=== PATIENT | female | born 1960 | race Caucasian/White ===

== ENCOUNTER 2019-07-13 08:19 | Inpatient (IN) | payer OTHER, SELFPAY ==
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
[2019-06-29 10:18] VITALS: BP 152/96; PULSE 84; RESP 16; TEMP 36.3; O2SAT 97; BMI 30.8
--- NOTE | 2019-06-29 10:37 | SDCEKG_ITS ---
Test Reason : Blood Pressure : / mmHG Vent. Rate : 080 BPM Atrial Rate : 080 BPM P-R Int : 178 ms QRS Dur : 086 ms QT Int : 386 ms P-R-T Axes : 062 018 041 degrees QTc Int : 445 ms Normal sinus rhythm Normal ECG Confirmed by PERNELL MI ([id number]), avid editor TANIA SANDOVAL ([id number]) on 07/04/2019 2:12:24 PM Referred By: Yandel Robles Confirmed By:PERNELL MI
[2019-06-29 11:11] LABS: Absolute Lymphocyte Count 1.45 X10^3/uL (0.83-4.51); Absolute Neutrophil Count 4.6 X10^3/uL (2.0-7.7); Basophil# 0.04 X10^3/uL; Basophil% 0.6 % (0-1); Eosinophil# 0.08 X10^3/uL; Eosinophils% 1.2 % (0-5); Hemoglobin 13.4 g/dL (12.0-15.0); Lymphocyte # 1.45 X10^3/ul (4.0); Lymphocyte % 22.2 % (19-41); Mean Corp Hgb Conc 33.5 g/dL (32-36); Mean Corpuscular Hgb 30.2 pg (27.0-32.0); Mean Corpuscular Volume 90.1 fL (81-99); Mean Platelet Vol. 8.9 fl (6.2-12.0); Monocyte# 0.34 X10^3/uL; Monocyte% 5.2 % (0-10); NRBC Flagged by Analyzer 0 % (0-5); Neutrophil % 70.5 % (47-70); Platelet Count 267 K/mm3 (150-450); RBC Distribution Width CV 12.3 % (11.6-14.6); RBC Distribution Width SD 40.3 fl (35.1-43.9); Red Blood Count 4.44 M/mm3 (4.2-5.4); White Blood Count 6.5 K/mm3 (4.4-11.0)
[2019-06-29 11:20] LABS: Anion Gap 3 (5-15); BUN 20 mg/dL (7-18); BUN/Creat Ratio 18.2 RATIO (10-20); Calcium,Total 9.1 mg/dL (8.5-10.1); Chloride 107 mmol/L (98-107); EST Glomerular Filtration Rate 54 mL/min (>60); Est Glom Filt Rate - Afr Amer 65 mL/min (>60); Estimated Creatinine Clearance 50.16 ml/min; Glucose 88 mg/dL (74-106); Potassium 4.3 mmol/L (3.5-5.1); Sodium Level 141 mmol/L (136-145)
[2019-07-07 17:05] LABS: Albumin, Serum 3.8 g/dL (3.2-5.0)
[2019-07-13] VITALS (15 sets, daily range): BP systolic 98–158; BP diastolic 45–95; PULSE 79–106; RESP 16–18; TEMP 36.1–37.3; O2SAT 93–100; BMI 30.8
[2019-07-13] MEDS: Magnesium Sulfate 4gm/100mL 4 GM/100 ML IV.SOLN. IV (08:45)
[2019-07-13] MEDS: Lactated Ringers 1,000 ML 125 ML IV ×3 (08:45→23:27)
[2019-07-13] MEDS: Scopolamine 1mg/72hr Patch 1 PATCH TRANSDERM. (09:06)
[2019-07-13] MEDS: Gabapentin 600 MG Tablet PO (09:08)
[2019-07-13] MEDS: Acetaminophen 500 MG Tablet 1000 MG PO ×3 (09:09→21:48)
[2019-07-13] MEDS: Celecoxib 200 MG Capsule 400 MG PO (09:09)
[2019-07-13 09:45] LABS: Bedside Glucose 86 mg/dL (70-110)
[2019-07-13] MEDS: Cefazolin 2 GM in 0.9% Normal Saline 100 ML IV (10:56)
--- NOTE | 2019-07-13 11:15 | RAD_ITS ---
STUDY: X-RAY - PELVIS AND LEFT HIP REASON FOR EXAM: Female, 59 years old. Left hip replacement. TECHNIQUE: 1 views of the pelvis and hip. COMPARISON: None. FINDINGS: Intraoperative imaging provided for left hip replacement. There is good alignment. RAD/Hip 1 view with Pelvis IMPRESSION: Intraoperative imaging provided for left hip replacement. Electronically Signed: Jac Foy, at 14:37 EDT , Service support ,
[2019-07-13] MEDS: dexAMETHasone 10 MG/ML Vial IV (11:35)
--- NOTE | 2019-07-13 12:06 | PCM.OPRPT ---
Report of Operation Date of Procedure: 07/13/19 Pre-Operative Diagnosis: Left hip primary osteoarthritis Post-Operative Diagnosis: Left hip primary osteoarthritis Surgery/Procedure Performed:: Left hip minimally invasive direct anterior total hip replacement Description of Surgical Findings:: Stable hip with equal leg lengths audiovisual tech: Adriane Jacobo Type of Anesthesia:: General Anesthesiologist: Deepak Cat Special Medications: 2 g Ancef, 1 g TXA at incision, 1 g TXA closure, 10 mg Decadron, joint cocktail (30 mL of 0.5% Ropivicaine, 1000 units of epinephrine, 30 mg of Toradol) Specimen's removed: Bony cuts Estimated Blood Loss (mL): 150 mL Fluids Replaced: 700 mL crystalloid Description of Procedure: Components used: 1. Accolade 2 Zack femoral stem size 5 132? 2. Zack trident 2 acetabular shell size 50 mm 3. Zack X3 polyethylene D 4. Zack Biolox delta 36mm, -5mm femoral head Brief history operative indications: 59 yo f who failed conservative measures for their hip osteoarthritis. X-rays were consistent with osteoarthritis including joint space narrowing, osteophyte formation and subchondral cysts. Total hip replacement was discussed with the patient with risks and benefits including but not limited to blood loss, DVTs, PEs, neurovascular damage, dislocation, general risks of anesthesia including loss of life. Patient demonstrated an understanding medical clearance is obtained the patient was consented for surgery. Procedure: On the date of procedure the patient's L hip was marked in the preoperative area. Patient was then taken back to the operating room where anesthesia assumed control of the C-spine and airway and administered anesthetic. Patient was transferred to the operating table and placed in the supine position. The hips were placed at the break of the bed and a sacral bump was placed. The L lower extremity was then prepped out in a sterile fashion using chlorhexidine while the surgeon scrubbed. The PA was vital in the positioning of the patient. Upon reentering the room the L lower extremity was draped in the standard orthopedic fashion and the incision was marked. A timeout was called and everyone agreed upon the side, the site, the procedure be performed, antibody given, and patient's identity. At this time incision was made through skin, subcutaneous tissue, and fat down to fascia. The fascia was then incised and the TFL was retracted laterally. A retractor was placed on the lateral border of the femoral neck. Attention was directed to the inferior portion of the approach and all crossing vessels were identified and appropriately coagulated. A retractor was then placed on the medial portion of the femoral neck. The anterior capsule was then cleared of all soft tissue and then H shaped capsulotomy was made. The retractors were then placed inside the capsule. The femoral neck was identified and a cleanup cut was made. At this time a power corkscrew was used to remove the femoral head. Attention was then turned toward the acetabulum where the soft tissues were appropriately retracted and the acetabulum was sequentially reamed to 50 mm. A 50 mm cup was then selected and impacted into place. Acetabular liner was impacted into place and locking mechanism was verified. The position of the acetabular cup was then verified under live fluoroscopy. Attention was then turned to the femur. Soft tissue releases on the medial and lateral femoral neck were appropriately done, the leg was externally rotated and lateralized. A Marion retractor was placed medially and proximally to the greater trochanter this allowed appropriate visualization and exposure of the femoral canal. Rongeour was then used to remove excess lateral bone. A canal finder and entry broach were used to open the proximal canal. Once we verified we were down the femoral canal we subsequently broached up to a size 5 femur. The appropriate neck was placed in the previously selected head was trialed with a -5 mm neck. Traction was pulled and the hip was reduced with internal rotation. Once it was appropriately reduced and stability was checked. There was minimal shuck, equal leg lengths and appropriate stability with hyperextension and external rotation as well as with 90? flexion and internal rotation. Fluoroscopy was then also used to verify the position of the components and leg lengths using the contralateral side for comparison. The trial components were then dislocated the proximal femur was again exposed and the components were removed from the wound. The final components were verified and opened. The wound was copiously irrigated out with normal saline. The acetabulum was checked for any residual debris. The final components were placed and impacted. Traction and internal rotation were again used to reduce the hip. After adequate reduction the hip remained stable with appropriate leg lengths. The final components were once again checked with live fluoroscopy and were found to be satisfactory. The wound was then copiously irrigated with normal saline once more, and hemostasis was obtained. Closure was then done using #1 Vicryl runner to close the fascia. A 2-0 vicryl interuppted sutures were used to close the subcutaneous skin. A 3-0 Monocryl and Steri-Strips were used for final skin closure. A Silverlon dressing was placed. Patient was awakened by anesthesia and transferred to [facility]. Patient was then transferred to the PACU for recovery. Postoperative plan: Patient will get 24 hours postop antibiotics. Patient will get in-house physical therapy and will be weight-bear as tolerated. Patient will follow up in office in 2 weeks for a wound check and x-rays. - Complications No intraoperative complications - Admit VTE Documentation VTE Present on Admission: No VTE Mechan Device Prophylaxis: SCD's, Thigh High AUGUSTINE Hose VTE Pharm Prophylaxis ordered?: Yes
--- NOTE | 2019-07-13 13:11 | RAD_ITS ---
STUDY: X-RAY - PELVIS AND LEFT HIP REASON FOR EXAM: Female, 59 years old. Total hip replacement. TECHNIQUE: 2 views of the pelvis and hip. COMPARISON: Comparison is made with prior study done earlier today. FINDINGS: The patient is status post total hip replacement. There is good alignment. Postoperative soft tissue changes. RAD/Hip Min 2 Views (Portable) IMPRESSION: Status post total hip replacement. There is good alignment. Postoperative soft tissue swelling. Electronically Signed: Jac Foy, at 14:36 EDT , Service support ,
[2019-07-13] MEDS: Lactated Ringers 1,000 ML 50 ML IV (13:49)
[2019-07-13] MEDS: Ketorolac 15 MG/ML Vial IV ×2 (15:33→21:48)
[2019-07-13] MEDS: Famotidine 20 MG Tablet PO (16:58)
[2019-07-13] MEDS: Aspirin 81 MG TAB.CHEW PO (16:58)
[2019-07-13] MEDS: DULoxetine Hcl 60 MG Capsule PO (16:58)
[2019-07-13] MEDS: Ensure Surgery 237 ML LIQUID PO (17:03)
[2019-07-13] MEDS: Cefazolin 1 GM/50 ML BAG IV (19:01)
[2019-07-13] MEDS: oxyCODONE 5 MG Tablet 2.5 MG PO (20:42)
[2019-07-13] MEDS: Senna/Docusate Sodium 1 Tablet 2 TABLET PO (21:54)
[2019-07-14 00:01] VITALS: BP 115/53; PULSE 99; RESP 16; TEMP 37.1; O2SAT 94
[2019-07-14] MEDS: Cefazolin 1 GM/50 ML BAG IV (02:35)
[2019-07-14 02:40] VITALS: BP 123/55; PULSE 101; RESP 18; TEMP 36.9; O2SAT 94
[2019-07-14] MEDS: Acetaminophen 500 MG Tablet 1000 MG PO ×2 (06:07→14:27)
[2019-07-14] MEDS: Meloxicam 7.5 MG Tablet PO (06:08)
[2019-07-14] MEDS: Ketorolac 15 MG/ML Vial IV (06:08)
[2019-07-14 07:00] LABS: Hematocrit 28.3 % (37-47); Hemoglobin 9.4 g/dL (12.0-15.0); Mean Corp Hgb Conc 33.2 g/dL (32-36); Mean Corpuscular Volume 90.4 fL (81-99); Mean Platelet Vol. 9.3 fl (6.2-12.0); Platelet Count 237 K/mm3 (150-450); RBC Distribution Width CV 12.6 % (11.6-14.6); RBC Distribution Width SD 41.1 fl (35.1-43.9); Red Blood Count 3.13 M/mm3 (4.2-5.4); White Blood Count 14.7 K/mm3 (4.4-11.0)
[2019-07-14 07:18] LABS: Anion Gap 2 (5-15); BUN 20 mg/dL (7-18); Calcium,Total 7.9 mg/dL (8.5-10.1); Chloride 110 mmol/L (98-107); EST Glomerular Filtration Rate 60 mL/min (>60); Est Glom Filt Rate - Afr Amer 73 mL/min (>60); Estimated Creatinine Clearance 54.51 ml/min; Glucose 112 mg/dL (74-106); Sodium Level 141 mmol/L (136-145)
[2019-07-14] MEDS: Aspirin 81 MG TAB.CHEW PO (08:38)
[2019-07-14] MEDS: Famotidine 20 MG Tablet PO (08:39)
[2019-07-14] MEDS: Lisinopril 10 MG Tablet PO (08:39)
[2019-07-14] MEDS: DULoxetine Hcl 60 MG Capsule PO (08:40)
[2019-07-14] MEDS: oxyCODONE 5 MG Tablet 2.5 MG PO ×2 (08:48→14:26)
[2019-07-14] MEDS: Ensure Surgery 237 ML LIQUID PO (08:49)
[2019-07-14 08:50] VITALS: BP 133/82; PULSE 85; RESP 18; TEMP 36.9; O2SAT 98
--- NOTE | 2019-07-14 11:08 | PCM.PN.ORT ---
Subjective: The patient was sitting in bedside chair upon examination. Patient denies any chest pain, shortness of breath, dizziness, lightheadedness, nausea or vomiting, or calf pain. Pain is controlled on medications. No adverse overnight events. Patient has tolerated physical therapy very well. Her pain is controlled. Plan is for discharge home today. Objective: Vital signs stable and afebrile. Patient is able to plantarflex and dorsiflex actively. Sensation is intact to light touch to saphenous, sural, superficial and deep peroneal, and tibial distribution. Dressing is clean dry and intact. Negative Homans bilaterally, negative signs and symptoms of DVT. - Physical Exam General: Alert, Oriented x3, Cooperative, No apparent distress Vital Signs Temp Pulse Resp BP Pulse Ox 98.4 F 85 18 133/82 H 98 07/14/19 08:50 07/14/19 08:50 07/14/19 08:50 07/14/19 08:50 07/14/19 08:50 Oxygen Flow Rate (L/min) 2 Oxygen Delivery Method Room Air Weight: 84 kg Body Mass Index (BMI) 30.8 Intake and Output for Last 24 Hours 07/12/19 07/13/19 07/14/19 23:59 23:59 23:59 Intake Total 3495.84 / 3495.84 1371.25 / 1371.25 Output Total 1000 / 1000 350 / 350 Balance 2495.84 / 2495.84 1021.25 / 1021.25 Laboratory Tests Past 24 Hrs 07/14/19 07/14/19 06:24 06:24 WBC 14.7 H RBC 3.13 L Hgb 9.4 L Hct 28.3 L MCV 90.4 MCH 30.0 MCHC 33.2 RDW Std Deviation 41.1 RDW Coeff of Nola 12.6 Plt Count 237 MPV 9.3 Sodium 141 Potassium 4.0 Chloride 110 H Carbon Dioxide 29.0 Anion Gap 2 L BUN 20 H Creatinine 1.00 Estim Creat Clear Calc 54.51 Est GFR (MDRD) Af Amer 73 Est GFR (MDRD) Non-Af 60 BUN/Creatinine Ratio 20.0 Glucose 112 H Calcium 7.9 L Medical Necessity - Tobacco Use Smoking Status: Never smoker Tobacco Use: Non-smoker Assessment/Plan 1. S/P left total hip arthroplasty direct approach POD #1 2. Continue Pain Medications: Tylenol and OxyIR 3. DVT Prophylaxis: Aspirin 81 mg twice daily with food for 4 weeks postoperatively 4. PT/OT: Weightbearing as tolerated 5. H & H: 9.4/28.3, asymptomatic 6. Reactive leukocytosis: Currently 14.7, afebrile. Patient did receive Decadron intraoperatively 7. Encouraged Incentive Spirometry 8. Disposition: Orthopedically stable, plan will be for discharge home today. Prescriptions will be E scribed to [facility]. Patient will follow-up per postop instructions. Patient has outpatient physical therapy established.
--- NOTE | 2019-07-14 11:13 | PCM.DC.THR ---
Discharge Diet: No Restrictions Discharge Activity: May Not Drive - while taking narcotic pain medications. May shower in (days): 1 - Turn dressing away from water Ice area for (Minutes): 20 - Every 1-2 hours while awake Weight Bearing Status: Weight bearing as tolerated Elevate: Operative Extremity Additional Activity Instructions:: Wear elastic stockings for 2 weeks. DO NOT use alcohol with narcotic pain medication. DO NOT make important decisions while taking narcotic medication. If you have problems with taking your medication (rash, itching, nausea, etc.) call the office at once. Call your doctor if your incision/area has: Increased Pain/ Swelling, Increased Redness, Foul Smelling Discharge Call your doctor if you observe: Fever of 101 or Higher Remove Dressing in (days):: 4 - Okay to remove dressing on July 18, 2019 Additional Instructions: Follow with [facility] postop instructions Allergies/Adverse Reactions: Allergies morphine Allergy (Verified 06/29/19 10:08) Chest tightness Medications to take at Discharge Duloxetine HCl [Cymbalta] 60 mg PO DAILY 04/12/15 Lisinopril [Zestril] 10 mg PO DAILY 06/29/19 Acetaminophen [Tylenol] 1,000 mg PO Q8 #100 tab 07/14/19 Aspirin [Aspirin, Baby] 81 mg PO BIDCM #60 tab.chew 07/14/19 Famotidine [Pepcid] 20 mg PO DAILY #30 tab 07/14/19 Meloxicam [Mobic] 7.5 mg PO BID #60 tab 07/14/19 Oxycodone [Oxyir] 5 mg PO Q4H PRN PRN 5 Days #30 tablet 07/14/19 Senna/Docusate Sodium [Senokot-S] 2 tab PO BID #20 tab 07/14/19 The following prescriptions were given: Aspirin [Aspirin, Baby] 81 mg PO BIDCM #60 tab.chew Transmission Status: Pending to [facility] Meloxicam [Mobic] 7.5 mg PO BID #60 tab Transmission Status: Pending to [facility] Oxycodone [Oxyir] 5 mg PO Q4H PRN PRN 5 Days #30 tablet PRN Reason: Mod-Severe Pain (-08/04) Transmission Status: Sent to [facility] Famotidine [Pepcid] 20 mg PO DAILY #30 tab Transmission Status: Pending to [facility] Senna/Docusate Sodium [Senokot-S] 2 tab PO BID #20 tab Transmission Status: Pending to [facility] Acetaminophen [Tylenol] 1,000 mg PO Q8 #100 tab Transmission Status: Pending to [facility] Primary Care Physician: David Baldwin MD [Primary Care Provider] - Test Results: Test results from this visit will be discussed in further detail at your follow-up appointment, if applicable. Please Follow Up With: [facility] When: 07/18/19 @ 10:00 am with Bimal Please Follow Up With: Dagoberto Chiu PA-C When: 07/27/19 @ 9:00 am
--- NOTE | 2019-07-14 12:00 | CASEMGMT ---
RN DANELLE Face to Face with patient for initial transition planning/care coordination assessment. RN CM introduced self and role at [facility]. Patient sitting in chair, alert and oriented, mother at bedside. Patient willing to participate in assessment and is able to answer all questions appropriately. Care providers, pharmacy, and demographics verified. Patient wishes to discharge to mother's home with outpatient therapy setup at [facility]. Patient states she has no further needs or concerns at this time. CM to follow for discharge planning needs that may arise. PCP: Denny Specialists: [facility] Pharmacy: [facility] Insurance: MMO Prescription Benefit: yes Living Will/HPOA: None LNOK: , mother Living Arrangements: Patient lives with in [facility] with on steps. Patient will be staying with mother for a few days who lives in 1 story home with 2 steps to enter the home. Transportation: Mother DME/HHC: Patient has walker. Patient has outpatient therapy at [facility] for Thursday. Disposition Plan: Rosemary GRAHAM, RN, CM
[2019-07-14 14:25] VITALS: BP 133/69; PULSE 90; RESP 16; TEMP 36.8; O2SAT 95
== END 2019-07-14 14:40 | disposition home or self-care (01) | DRG 470 ==
LOC: ACINP 08:22 → MS3 07-14 07:41
PROVIDERS: Admitting Provider Specialist; Family Provider Family Medicine; PCP Family Medicine; Referring Provider Specialist; Visit Provider Specialist
PROC: 0SRB02Z Replacement of Left Hip Joint with Metal on Polyethylene Synthetic Substitute, Open Approach (ICD-10-PCS; CPT 27284; principal; 2019-07-13 10:50)
DX: M16.12 Unilateral primary osteoarthritis, left hip (principal); Z87.442 Personal history of urinary calculi; I10 Essential (primary) hypertension; G35 Multiple sclerosis; F32.9 Major depressive disorder, single episode, unspecified; Z79.899 Other long term (current) drug therapy; K21.9 Gastro-esophageal reflux disease without esophagitis; D72.828 Other elevated white blood cell count
CPT/HCPCS: 36415; 73501; 73502; 76000; 80048; 82040; 82962; 85025; 85027; 87081; 93005; 97162; 97166; 97530; 99251; C1776; J7120; G0463; J2405

== ENCOUNTER → 2019-08-08 | Outpatient (CLI) | payer OTHER, SELFPAY ==
[2019-07-13 15:23] VITALS: BMI 30.8
--- NOTE | 2019-08-08 11:21 | LES_PTH ---
PATIENT: ESTHER AGGARWAL [id number] AGE/SX: 59/F ROOM: RE08/08/[address]: Dr. David Shah MD : 1960 BED: DIS: 08/08/2019 SPEC #: [id number] RECD: 08/08/19 13:54 STATUS: ROMAN RERandy #: [id number] TANNER: 08/08/19 11:[address]: David Shah DEPT: SURGICAL PATHOLOGY RECD BY: Huey Anthony ENTERED: 08/08/19 15:10 SP TYPE: Lesion OTHR DR: Dr. David Baldwin MD Tissues: Skin of leg, NOS Procedures: Surgery Specimen Level IV HEADER OPERATION: Left thigh skin excision PRE-OP DIAGNOSIS: Suspicious skin lesion TISSUE SUBMITTED: Left thigh lesion MICROSCOPIC DIAGNOSIS Left thigh lesion, excisional biopsy: Benign verrucous keratosis. SJ:ace 08/09/19 MICROSCOPIC DESCRIPTION Slides are reviewed. GROSS DESCRIPTION Received in fixative is one container labeled with the patient's name and designated left thigh skin lesion. The specimen consists of a round piece of engle-white skin measuring 0.4 cm in diameter and 0.1 cm in thickness. The entire specimen is submitted in one cassette. It will be bisected at the time of embedding. / SJ:rg 08/08/19 TC:5 [facility]: [id number]
== END | disposition home or self-care (01) ==
LOC: LABSPEC 14:05
PROVIDERS: Family Provider Family Medicine; PCP Family Medicine; Referring Provider Family Medicine; Visit Provider Family Medicine
DX: L98.9 Disorder of the skin and subcutaneous tissue, unspecified (principal)
CPT/HCPCS: 88305

== ENCOUNTER → 2019-08-18 | Outpatient (CLI) | payer OTHER, SELFPAY ==
[2019-07-13 15:23] VITALS: BMI 30.8
--- NOTE | 2019-08-18 09:57 | BI_ITS ---
MAMMOGRAPHY - BILATERAL SCREENING REASON FOR EXAM: Female, 59 years old. Routine annual screening examination. PERTINENT HISTORY: Non-contributory. History of bilateral breast reduction surgery. TECHNIQUE: Digital bilateral breast garry (3D mammographic acquisition) in the CC and MLO projections. 2-D mediolateral oblique (MLO) and craniocaudad (CC) views of both breasts were obtained. CAD: Full Field Digital Mammography with Computer Added Detection was performed. COMPARISON: Comparison is made with prior examination dated January 13, 2017 and April 12, 2013. FINDINGS: Breast Composition: There are scattered areas of fibroglandular density. There are no dominant masses or suspicious calcifications. No other significant abnormalities are identified. There has been no significant change since the prior study. BI/SCREEN MAMM (CAD) W/GARRY BILAT IMPRESSION: Stable bilateral screening mammogram. Yearly follow-up mammogram recommended. (A) ASSESSMENT CATEGORY: BIRADS Category 1: Negative. A letter regarding these results will be sent to the patient by the facility within 30 days. Approximately 10% of breast cancers are not detected by mammography. A normal mammogram should not delay biopsy of a clinically suspicious abnormality. [id number] Electronically Signed: Jca Foy, at 11:25 EDT , Service support ,
== END | disposition home or self-care (01) ==
LOC: OPBI 09:56
PROVIDERS: Family Provider Family Medicine; PCP Family Medicine; Referring Provider Family Medicine; Visit Provider Family Medicine
DX: Z12.31 Encounter for screening mammogram for malignant neoplasm of breast (principal)
CPT/HCPCS: 77063; 77067

== ENCOUNTER → 2019-11-14 11:29 | Outpatient (CLI) | payer OTHER, SELFPAY ==
[2019-07-13 15:23] VITALS: BMI 30.8
[2019-11-14 16:02] LABS: Anion Gap 5 (5-15); BUN 21 mg/dL (7-18); BUN/Creat Ratio 18.1 RATIO (10-20); Calcium,Total 9.4 mg/dL (8.5-10.1); Chloride 106 mmol/L (98-107); Cholesterol 179 mg/dL (200); Creatinine, Serum 1.16 mg/dL (0.55-1.02); EST Glomerular Filtration Rate 51 mL/min (>60); Est Glom Filt Rate - Afr Amer 61 mL/min (>60); Glucose 80 mg/dL (74-106); High Density Lipoprotein 53 mg/dL; Potassium 3.9 mmol/L (3.5-5.1); Sodium Level 140 mmol/L (136-145); Triglycerides 244 mg/dL; Very Low Density Lipoprotein 49 mg/dL (5-40)
[2019-11-16 20:21] LABS: HPV HC, High Risk Negative (Negative)
== END ==
PROVIDERS: PCP Family Medicine; Referring Provider Family Medicine; Visit Provider Family Medicine
DX: Z13.1 Encounter for screening for diabetes mellitus (principal); Z13.220 Encounter for screening for lipoid disorders; Z01.419 Encounter for gynecological examination (general) (routine) without abnormal findings
CPT/HCPCS: 36415; 80048; 80061; 87624; 88175; G0145

== ENCOUNTER → 2020-05-31 11:17 | Outpatient (CLI) | payer OTHER, SELFPAY ==
[2019-07-13 15:23] VITALS: BMI 30.8
[2020-05-31 15:47] LABS: ALB/GLOB Ratio 1.1 RATIO (0.9-2.4); AST(SGOT) 15 U/L (15-37); Alanine Aminotransfer ALT/SGPT 25 U/L (13-56); Albumin, Serum 3.9 g/dL (3.2-5.0); Alkaline Phosphatase 105 U/L (45-117); Anion Gap 5 (5-15); BUN 18 mg/dL (7-18); BUN/Creat Ratio 17.3 RATIO (10-20); Calcium,Total 8.8 mg/dL (8.5-10.1); Chloride 108 mmol/L (98-107); Creatinine, Serum 1.04 mg/dL (0.55-1.02); EST Glomerular Filtration Rate 58 mL/min (>60); Est Glom Filt Rate - Afr Amer 70 mL/min (>60); Globulin 3.4 g/dL (2.2-4.2); Glucose 81 mg/dL (74-106); Potassium 3.9 mmol/L (3.5-5.1); Protein, Total 7.3 g/dL (6.4-8.2); Sodium Level 142 mmol/L (136-145)
[2020-05-31 15:49] LABS: Vitamin D,25 Hydroxy 25.7 ng/mL
[2020-05-31 15:59] LABS: Microalbumin,Random Urine 85.4 mg/L (NO RANGE EST.); Microalbumin:Creatinine Ratio 53.7 mg/g CRE (<30 mg/g CRE)
[2020-06-01 10:12] LABS: PTHIN 92.1 pg/mL (18.4-80.1)
== END ==
PROVIDERS: PCP Family Medicine; Referring Provider Family Medicine; Visit Provider Family Medicine
DX: N18.3 Chronic kidney disease, stage 3 (moderate) (principal)
CPT/HCPCS: 36415; 80053; 82043; 82306; 82570; 83970

== ENCOUNTER → 2020-08-15 | Outpatient (CLI) | payer OTHER, SELFPAY ==
[2019-07-13 15:23] VITALS: BMI 30.8
[2020-08-15 18:44] LABS: CRP 4.57 mg/L (0.0-3.0)
[2020-08-15 18:45] LABS: Hematocrit 41.2 % (37-47); Hemoglobin 13.5 g/dL (12.0-15.0); Mean Corp Hgb Conc 32.8 g/dL (32-36); Mean Corpuscular Hgb 29.3 pg (27.0-32.0); Mean Corpuscular Volume 89.6 fL (81-99); Mean Platelet Vol. 8.9 fl (6.2-12.0); Platelet Count 341 K/mm3 (150-450); RBC Distribution Width CV 12.6 % (11.6-14.6)
[2020-08-15 19:07] LABS: Erythrocyte Sedimentation Rate 5 mm/hr (0-30)
== END | disposition home or self-care (01) ==
LOC: MTLAB 15:58
PROVIDERS: PCP Family Medicine; Referring Provider Ophthalmology; Visit Provider Ophthalmology
DX: M31.6 Other giant cell arteritis (principal); R51.9 Headache, unspecified
CPT/HCPCS: 36415; 85027; 85652; 86140

== ENCOUNTER → 2021-07-12 | Outpatient (CLI) | payer OTHER, SELFPAY ==
--- NOTE | 2021-07-12 10:30 | TISS_PTH ---
PATIENT: ESTHER AGGARWAL [facility]#:[id number] AGE/SX: 61/F ROOM: RE07/12/[address]: Dr. David Shah MD : 1960 BED: DIS: 07/12/2021 SPEC #: [id number] RECD: 07/12/21 12:00 STATUS: ROMAN ERNSTRandy #: [id number] TANNER: 07/12/21 10:[address]: David Shah DEPT: SURGICAL PATHOLOGY RECD BY: Huey Anthony Tissues: Skin of upper extremity and shoulder Procedures: Surgery Specimen Level IV HEADER OPERATION: Shave biopsy PRE-OP DIAGNOSIS: Right shoulder blade TISSUE SUBMITTED: Right shoulder blade MICROSCOPIC DIAGNOSIS Skin lesion of right shoulder, shave biopsy: Seborrheic keratosis. AM:ace 07/15/2021 MICROSCOPIC DESCRIPTION Slides are reviewed. GROSS DESCRIPTION Received is one container labeled with the patient's name and not further designated. The specimen consists of a shave biopsy of brown skin measuring 1 x 0.5 x 0.1 cm. The specimen is inked, serially sectioned and submitted entirely in one cassette. / SJ:rg 07/12/21 TC:5 CPT: 91915
== END | disposition home or self-care (01) ==
LOC: LABSPEC 07-13 17:26
PROVIDERS: PCP Family Medicine; Visit Provider Family Medicine
DX: L82.1 Other seborrheic keratosis (principal)
CPT/HCPCS: 88305

== ENCOUNTER → 2021-10-09 10:09 | Outpatient (CLI) | payer OTHER, SELFPAY ==
[2021-10-09 11:04] LABS: Absolute Lymphocyte Count 1.58 X10^3/uL (0.83-4.51); Absolute Neutrophil Count 5.1 X10^3/uL (2.0-7.7); Basophil# 0.04 X10^3/uL; Basophil% 0.6 % (0-1); Eosinophil# 0.19 X10^3/uL; Eosinophils% 2.6 % (0-5); Hematocrit 41.6 % (37-47); Hemoglobin 13.5 g/dL (12.0-15.0); Lymphocyte # 1.58 X10^3/ul (0.83-4.51); Mean Corp Hgb Conc 32.5 g/dL (32-36); Mean Corpuscular Hgb 28.7 pg (27.0-32.0); Mean Corpuscular Volume 88.5 fL (81-99); Mean Platelet Vol. 9.1 fl (6.2-12.0); Monocyte% 4.2 % (0-10); NRBC Flagged by Analyzer 0 % (0-5); Neutrophil # 5.06 X10^3/uL (2.7-7.7); Neutrophil % 70.3 % (47-70); Platelet Count 360 K/mm3 (150-450); RBC Distribution Width CV 12.9 % (11.6-14.6); RBC Distribution Width SD 42.1 fl (35.1-43.9); White Blood Count 7.2 K/mm3 (4.4-11.0)
[2021-10-09 11:31] LABS: AST(SGOT) 14 U/L (15-37); Alanine Aminotransfer ALT/SGPT 26 U/L (13-56); Albumin, Serum 3.9 g/dL (3.2-5.0); Alkaline Phosphatase 114 U/L (45-117); Bilirubin, Direct 0.08 mg/dL (0.00-0.30); Globulin 3.8 g/dL (2.2-4.2); Protein, Total 7.7 g/dL (6.4-8.2)
[2021-10-09 12:33] LABS: Hepatitis B Surface Antigen Non-Reactive (Nonreactive); Hepatitis C Antibody Non-Reactive (Nonreactive)
[2021-10-10 08:10] LABS: Immunoglobulin A 171 mg/dL (87-352); Immunoglobulin G 1039 mg/dL (586-1602); Immunoglobulin M 63 mg/dL (26-217)
[2021-10-10 09:41] LABS: Hepatitis B Core Ab Total Negative (Negative)
== END ==
DX: G35 Multiple sclerosis (principal)
CPT/HCPCS: 36415; 80076; 82784; 85025; 86704; 86803; 87340

== ENCOUNTER 2021-10-22 18:18 | Emergency (ER) | payer OTHER, SELFPAY ==
[2021-10-22 18:19] VITALS: BP 166/88; PULSE 114; RESP 18; TEMP 36.4; O2SAT 100; BMI 27.6
--- NOTE | 2021-10-22 18:24 | RAD_ITS ---
STUDY: X-RAY - UNILATERAL RIBS ( LEFT ) WITH CHEST REASON FOR EXAM: Female, 61 years old. fall TECHNIQUE - RIBS: 4 view(s) of the ribs. TECHNIQUE - CHEST: Single PA view of the chest. COMPARISON: None. FINDINGS - RIBS: Normal visualized ribs without a demonstrated fracture. FINDINGS - CHEST: There is hyperinflation of the lungs consistent with chronic obstructive lung disease (COPD). No visualized consolidation. There is no demonstrated pleural abnormality. Normal size heart. Normal mediastinum and holden. Normal visualized pulmonary arteries. There is atherosclerotic calcification of the aortic arch with tortuosity. Normal visualized thoracic spine. Normal visualized ribs, clavicles, and shoulders. There is no demonstrated abnormality of the visualized soft tissue structures of the upper abdomen. RAD/Ribs Uni Min 3V w/PA Chest IMPRESSION: RIBS: Normal x-ray examination of the ribs. CHEST: COPD. Degenerative changes, as described above. No demonstrated acute cardiopulmonary process. Electronically Signed: Kervin Ramon MD at 19:45 EST , Service support ,
--- NOTE | 2021-10-22 20:42 | CM.ED ---
SW Note Referral Source: Case Find Referral Reason: No Primary Care Physician (PCP) SW reviewed chart and noted that patient has no PCP. SW provided patient with list of [facility] and [facility] Physician List for reference. No other issues or concerns voiced at this time. Patient said that her previous PCP had retired. SW remains available for any additional needs. Plan: Provided patient with PCP information Maribell MCCORMACK
--- NOTE | 2021-10-22 21:08 | EDS_ITS ---
HPI HPI - Fall History of Present Illness Chief Complaint: Fall Informant: patient Occured/Mechanism Occurred: Days (6) Mechanism/Context: Yes trip Fall down steps #: 13 Usually ambulates: Without assistance Pain/Injury Location: Left chest and left shoulder Pain Location: chest (Left) and upper extremity (Left shoulder) Worsened by: Coughing, movement Relieved by: Nothing Associated Symptoms Associated Symptoms: Negative for Parasthesias, Weakness, Inability to ambulate and Loss of consciousness Narrative Narrative: Patient is here after a fall that occurred 16 days ago. Patient states she fell down her basement steps. Patient states this was approximately 13-14 steps. Patient denies any head injury or loss of consciousness. Patient states her pain is on her left side. Patient describes her pain as sharp. Patient denies any paresthesias or weakness. Patient has been able to ambulate since the fall. Patient admits to some pain in her chest whenever she coughs. Patient states she feels short of breath due to the pain in the left side of her chest. PFSH PFS Medical History (Updated 10/22/21 @ 21:[address] Amauri Naranjo DO) Depression Hypertension Home Medications duloxetine [Cymbalta] 60 mg PO DAILY 04/12/15 [History Last Taken Unknown] lisinopril 10 mg PO DAILY 06/29/19 [History Last Taken Unknown] acetaminophen 1,000 mg PO Q8 #100 tab 07/14/19 [Rx Last Taken Unknown] aspirin 81 mg PO BIDCM #60 tab.chew 07/14/19 [Rx Last Taken Unknown] famotidine 20 mg PO DAILY #30 tab 07/14/19 [Rx Last Taken Unknown] meloxicam 7.5 mg PO BID #60 tab 07/14/19 [Rx Last Taken Unknown] sennosides-docusate sodium 2 tab PO BID #20 tab 07/14/19 [Rx Last Taken Unknown] Allergy/AdvReac Type Severity Reaction Status Date / Time morphine Allergy Chest Verified 06/29/19 10:08 tightness Surgical History (Updated 10/22/21 @ 21:[address] Amauri Naranjo DO) History of total replacement of both hip joints Hx of appendectomy Hx of bilateral breast reduction surgery Hx of cholecystectomy Social History Smoking Status: Never smoker ROS ROS ED Constitutional Constitutional ED: Denies chills or fever(s) Eyes Eyes: Denies blurry vision or change in vision ENT ENT ED: Reports rhinorrhea; Denies sore throat Cardiovascular Cardiovascular: Reports chest pain; Denies palpitations Respiratory/Chest Respiratory/Chest: Reports cough and dyspnea Gastrointestinal Gastrointestinal: Denies nausea or vomiting Genitourinary Genitourinary ED: Denies dysuria or hematuria Musculoskeletal Musculoskeletal: Denies back pain or neck pain Integumentary Denies abscess or rash Neurologic Neurologic: Denies headache(s) or weakness Allergic/Immunologic Allergic/Immunologic ED: Denies mouth swelling or urticaria EXAM Physical Exam Const Vital Signs: 10/22/21 18:19 10/22/21 18:48 Temperature 97.6 F L Temperature Source Temporal Pulse Rate 114 H Respiratory Rate 18 Respiratory Effort Normal Respiratory Depth Normal Respiratory Pattern Normal Blood Pressure 166/88 H Blood Pressure Mean 114 Pulse Ox 100 Oxygen Delivery Method Room Air Positive well nourished and well developed General Appearance ED: well developed HEENT Reports normocephalic atraumatic Neck full ROM and supple Chest Wall Chest Narrative: There is tenderness along the lateral aspect of the left lower chest. There is no edema or ecchymosis. There is no bony crepitance or step- off. Resp normal respiratory effort and clear to auscultation bilaterally Cardio regular rate and regular rhythm GI non-tender Palpation: soft Back/Spine no CVA tenderness Extremity Extremity Narrative: There is some mild ecchymosis over the lateral aspect of the left shoulder. There is no deformity. There is full range of motion. Strength is 5/5 bilaterally upper and lower extremities. There are no sensory deficits noted. Neuro oriented x3, CN's II-XII intact bilaterally, moves all extremities, no focal motor deficits and no sensory deficits noted Sensorium / Orientation: alert Psych mental status grossly normal MDM MDM MDM Narrative Medical decision making narrative: X-rays of the left ribs were obtained. There are 5 views. On my interpretation, there is no acute fracture. There is no pneumothorax. There is no acute cardiopulmonary process noted. There is no cardiomegaly. Radiologist also interpreted the x-rays and agrees. Patient was advised of her findings. Patient was instructed use ice to the area. Patient was instructed to take Tylenol or ibuprofen as needed for any pain. Patient was instructed to return if worse in any way. Patient was instructed to follow-up with her primary care physician in 5 to 7 days. Patient understood and was agreeable with the plan. All questions were answered. Radiography Diagnostic Testing: Clinical Impression(s) from Imaging Studies Ribs w/Chest X-Ray 10/22/21 18:24 IMPRESSION: RIBS: Normal x-ray examination of the ribs. CHEST: COPD. Degenerative changes, as described above. No demonstrated acute cardiopulmonary process. Electronically Signed: Kervin Ramon MD at 19:45 EST , Service support , Discharge Plan Triage Chief Complaint: Fall ED Provider: Amauri Naranjo Dx/Rx/DC Orders Clinical Impression: Chest wall contusion Instructions: ED Chest Wall Contusion Prescriptions: No Action duloxetine [Cymbalta] 60 MG capsule,delayed release(DR/EC) 60 mg PO DAILY RF: 0 lisinopril 10 MG tablet 10 mg PO DAILY RF: 0 sennosides-docusate sodium 1 TABLET tablet 2 tab PO BID Qty: 20 RF: 0 acetaminophen 500 MG tablet 1,000 mg PO Q8 Qty: 100 RF: 0 meloxicam 7.5 MG tablet 7.5 mg PO BID Qty: 60 RF: 0 famotidine 20 MG tablet 20 mg PO DAILY Qty: 30 RF: 0 aspirin 81 MG tablet,chewable 81 mg PO BIDCM Qty: 60 RF: 0 Primary Care Provider: Care Physician,No Primary Referrals: Care Physician,No Primary [Primary Care Provider] - Doctor,Your [STAFF PHYSICIAN] - 3-5 Days Disposition Disposition: Home, Self Care
== END 2021-10-22 21:19 | disposition home or self-care (01) ==
PROVIDERS: Emergency Provider Emergency Medicine
DX: S20.212A Contusion of left front wall of thorax, initial encounter (principal); S40.012A Contusion of left shoulder, initial encounter; W10.9XXA Fall (on) (from) unspecified stairs and steps, initial encounter; Y93.9 Activity, unspecified; Y92.9 Unspecified place or not applicable; Y99.9 Unspecified external cause status; I10 Essential (primary) hypertension; F32.A Depression, unspecified; Z79.82 Long term (current) use of aspirin; Z79.1 Long term (current) use of non-steroidal anti-inflammatories (NSAID); Z79.899 Other long term (current) drug therapy; Z96.643 Presence of artificial hip joint, bilateral
CPT/HCPCS: 71101; 99282

== ENCOUNTER → 2021-10-24 | Outpatient (CLI) | payer OTHER, SELFPAY | END | disposition home or self-care (01) | PROVIDERS: Visit Provider Nurse Practitioner Family | DX: Z20.822 Contact with and (suspected) exposure to COVID-19 (principal); U07.1 COVID-19 | CPT/HCPCS: 87635; U0003; U0005 ==

== ENCOUNTER 2021-11-15 14:50 | Outpatient (CLI) | payer OTHER, SELFPAY ==
--- NOTE | 2021-11-15 14:55 | VDLE_ITS ---
Reason For Study: Pain Procedure LEFT This is a venous duplex using B-mode, color GSV is normal. flow and spectral Doppler. CFV is compressible, spontaneous, phasic, Exam performed in department. competent, and demonstrates normal A preliminary report was called and/or faxed augmentation. to [facility]. FV is compressible, spontaneous, phasic, competent and demonstrates normal augmentation. POP V is compressible, spontaneous, phasic, competent and demonstrates normal augmentation. T/P Trunk is compressible. PTV is compressible. LT PerV is compressible. VL/Venous Duplex US, Unilateral Interpretation Summary Deep veins of the left lower extremity are patent and compressible segmentally. There is no evidence of left lower extremity deep vein thrombosis. Valvular competence appears intac t within the proximal deep venous system on the left . The left great saphenous vein appears patent a nd compressible segmentally. Ordering Physician: Gary Gill Performed By: Rosemary Douglas RVT
== END 2021-11-15 23:59 | disposition short-term general hospital (02) ==
PROVIDERS: Visit Provider Family Medicine
DX: M79.605 Pain in left leg (principal)
CPT/HCPCS: 93971

== ENCOUNTER 2022-01-03 11:30 | Outpatient (RCR) | payer OTHER, SELFPAY ==
--- NOTE | 2021-11-26 13:59 | HP.PTEVAL ---
Patient's Visit Information ESTHER AGGARWAL is a 61 year old F referred to Physical Therapy by Dr. Gary Gill MD with a diagnosis of Left Leg Pain. Date of Evaluation: 11/26/21 Physical Therapist: María Franz DPT - Visit Plan Frequency: 2x /Week Duration: 4 Weeks Plan: Aquatic Therapy. Focus on LE and core strength/stabilization - Subjective Left leg pain- fell down the steps around [place] time- was trying to go up the steps and when she got to the top she couldn't get the last step so she fell backwards. She went to the ER- nothing was broken- x-rays but no MRI. The pain is located in the left knee. Does radiates to the ankle. She has a hard time walking. Describe the pain as dull and achy. Worst: 8/10 Agg: walking Eases: elevation Best: 0/10. She has fallen since the initial injury and she injured her left buttocks from the sofa to the floor. She had a hard time getting up off the floor. She does not have back pain normally but does not have back pain. She went to the MD and they told her that she just needed to go to PT. She is currently using a rollerator which helps with the pain, but was not using it prior to the fall. She is unable to go up/down the stairs due to pain and fear. She has had bilateral THR in 2019 but does not remember who did her hip replacements- but done in [place]. Prior to injury she was not very active and she sat in her chair a lot and is now sitting on the sofa. She is still able to do all of her ADL's but they are painful. Sleep: not disturbed. PMHx/Meds: no changes since at [place] ED. - Objective Posture: FH, RS- can correct but does not maintain. Gait: slow gregg-rollerator- uncontrolled bending of the left LE. Stairs: no safe to perform today. HR/TR: able without UE A but left LE leelee. SLS: WS with significant weight on UE. Sensation: WFL to gross touch bilateral LE. Reflex: 2+ patellar. ROM: WFL in all planes but reports pain with all movements- lumbar and left LE. Flex: HS: severe, Gastroc: severe. Strength: Core: poor, Hip:4-/5 with pain Knee: 4-/5 Ankle: 4-/5 - Special Tests L/S Slump test left side: Positive L/S Slump test right side: Negative L/S Left Straight Leg Raise: Positive L/S Right Straight Leg Raise: Negative L Hip Scour: Positive L Hip ARUN - Intraarticular Pathology: Positive L Knee Barbara - Meniscus: Positive L Knee Renata - ACL: Positive L Knee Valgus - MCL: Positive L Knee Varus - LCL: Positive - Balance/Special Test Scores Lower Extremity Functional Score: 20 - Goals Goal 1:: Patient will be I with HEP and progression Goal Time Frame: 4-6 Weeks Goal 2:: Patient will ambulate >300 feet with a normalized gait pattern and LRD Goal Time Frame: 4-6 Weeks Goal 3:: Patient will asc/desc 8 stairs recip with 1 HR Goal Time Frame: 4-6 Weeks Goal 4:: Patient will maintain proper posture t/o tx session to demo increased core s/s Goal Time Frame: 4-6 Weeks - Rehabilitation Potential Physical Therapy Diagnosis: Patient presents with hypomobility- she has decreased pain free ROM, LE and core strength/stabilization, flex and muscular endurance leading to poor posture and increased pain with ADL's Rehabilitation Potential: Fair - Anticipated Interventions Patient/Client Instruction: Educate patient on: Benefits of Fitness Program Therapeutic Exercise to Include: Strength training, Endurance training, Balance training, Coordination, Agility training, Body mechanics, Postural training, Flexibilty training, Gait and locomotor training, Neuromotor development, In an aquatic setting, Dynamic Lumbar Stabilization, Scapular Strength/Stabilization For the Purpose of:: To improve muscle performance and motor function Thank you for the opportunity to evaluate your patient. For Medicare and Medicare HMO plans, please review the plan of care and approve it. It will need to be FAXED BACK to us at [phone] for Medicare purposes. For Medicare only, by signing this I certify the plan of care. Please let me know if there are questions or concerns regarding this plan of care. Physician Signature: Date:
--- NOTE | 2022-01-03 11:59 | HP.PTREVAL ---
Dr. Gary Gill MD, It has been my pleasure to treat ESTHER AGGARWAL over the last 9 visits for Left Leg Pain. Please see the progress note below for an update on the physical therapy plan of care! Subjective: Patient reports that she feels that the leg is staying the same. The pain comes and goes. Her reports that she sits for 23 hours a day. Her has seen some improvements from PT. Walked out to get the paper and uses a rollerator. Objective/Function: Posture: FH, RS- can correct but does not maintain. Gait: slow gregg-holding onto her - increased valgus of the knees. Stairs: non reciprocal reports fear due to fall HR/TR: able with UE A. SLS: 1-2 seconds Sensation: WFL to gross touch bilateral LE. Reflex: 2+ patellar. ROM: WFL in all planes. Flex: HS: severe, Gastroc: severe. Strength: Core: poor, Hip:4-/5 with pain Knee: 4-/5 Ankle: 4-/5. - Special Tests. L/S Slump test left side: Positive. L/S Slump test right side: Negative. L/S Left Straight Leg Raise: Positive. L/S Right Straight Leg Raise: Negative. L Hip Scour: Positive. L Hip ARUN - Intraarticular Pathology: Positive. L Knee Barbara - Meniscus: Positive. L Knee Renata - ACL: Positive. L Knee Valgus - MCL: Positive. L Knee Varus - LCL: Positive Plan Plan: 01/03/22: Continue with PT aquatics- focus on LE and core strength/stabilization with functional mobility- encouraged moce movement at home. *f/u with supervising PT next. Would recommend continued AT and/or transition to land PT at this time d/t reduced pain. Pt learns slowly (d/t MS, needs lots of verbal cues and physical demos) and would benefit from continued PT. Working on transitioning to I pool program. Has been given her own page, but is not I yet. *Add step ups next. Aquatic Therapy. Focus on LE and core strength/stabilization Balance/Gait/Functional tests - Balance/Special Test Scores Lower Extremity Functional Score: 26 Goals Goal 1:: Patient will be I with HEP and progression Goal Time Frame: 4-6 Weeks Goal Progress: Progressing Goal 2:: Patient will ambulate >300 feet with a normalized gait pattern and LRD Goal Time Frame: 4-6 Weeks Goal Progress: Progressing Goal 3:: Patient will asc/desc 8 stairs recip with 1 HR Goal Time Frame: 4-6 Weeks Goal Progress: Progressing Goal 4:: Patient will maintain proper posture t/o tx session to demo increased core s/s Goal Time Frame: 4-6 Weeks Goal Progress: Progressing Anticipated Interventions Patient/Client Instruction: Educate patient on: Benefits of Fitness Program Therapeutic Exercise to Include: Strength training, Endurance training, Balance training, Coordination, Agility training, Body mechanics, Postural training, Flexibilty training, Gait and locomotor training, Neuromotor development, In an aquatic setting, Dynamic Lumbar Stabilization, Scapular Strength/Stabilization For the Purpose of:: To improve muscle performance and motor function Please do not hesitate to contact me at [phone] by phone or if you have questions or concerns regarding this new plan of care! Sincerely, María Franz DPT
--- NOTE | 2022-01-22 15:56 | HP.PT.NRP ---
ESTHER AGGARWAL was seen in my office for initial evaluation on 11/26/21. The following Plan of Care was established for this patient: Initial Frequency: 2x /Week Initial Duration: 4 Weeks Patient/Client Instruction: Educate patient on: Benefits of Fitness Program Therapeutic Exercise to Include: Strength training, Endurance training, Balance training, Coordination, Agility training, Body mechanics, Postural training, Flexibilty training, Gait and locomotor training, Neuromotor development, In an aquatic setting, Dynamic Lumbar Stabilization, Scapular Strength/Stabilization For the Purpose of:: To improve muscle performance and motor function This patient was last seen in our office . Pertinent comments regarding their Physical therapy will appear below: Patient has declined continuation of PT. D/C At this point I will be discontinuing this patient from physical therapy. I would be happy to see this patient again in the future if found appropriate by the physician. Thank you! María Franz, RAFIT Balance/Gait/Functional tests - Balance/Special Test Scores Lower Extremity Functional Score: 26
== END 2022-01-03 19:00 | disposition home or self-care (01) ==
LOC: PT 11:30
PROVIDERS: PCP Family Medicine; Referring Provider Family Medicine; Visit Provider Family Medicine
DX: M79.606 Pain in leg, unspecified (principal)
CPT/HCPCS: 97113; 97162; 97164

== ENCOUNTER → 2022-04-29 | Outpatient (CLI) | payer OTHER, SELFPAY ==
[2022-04-29 18:26] LABS: Vitamin B12 218 pg/mL (211-911); Vitamin D,25 Hydroxy 16.6 ng/mL
[2022-04-29 18:33] LABS: ALB/GLOB Ratio 1.1 RATIO (0.9-2.4); AST(SGOT) 22 U/L (15-37); Alanine Aminotransfer ALT/SGPT 30 U/L (13-56); Albumin, Serum 4.1 g/dL (3.2-5.0); Alkaline Phosphatase 100 U/L (45-117); Anion Gap 6 (5-15); BUN 20 mg/dL (7-18); BUN/Creat Ratio 19.2 RATIO (10-20); Calcium,Total 9.2 mg/dL (8.5-10.1); Chloride 106 mmol/L (98-107); Cholesterol 196 mg/dL (200); Creatinine, Serum 1.04 mg/dL (0.55-1.02); EST Glomerular Filtration Rate 57 mL/min (>60); Est Glom Filt Rate - Afr Amer 69 mL/min (>60); Globulin 3.6 g/dL (2.2-4.2); Glucose 89 mg/dL (74-106); High Density Lipoprotein 58 mg/dL; Potassium 3.9 mmol/L (3.5-5.1); Protein, Total 7.7 g/dL (6.4-8.2); Sodium Level 139 mmol/L (136-145); Triglycerides 154 mg/dL; Very Low Density Lipoprotein 31 mg/dL (5-40)
== END | disposition home or self-care (01) ==
LOC: MFPLAB 14:29
PROVIDERS: Family Medicine; PCP Family Medicine; Visit Provider Family Medicine
DX: I10 Essential (primary) hypertension (principal); G35 Multiple sclerosis; E78.2 Mixed hyperlipidemia; E55.9 Vitamin D deficiency, unspecified
CPT/HCPCS: 36415; 80053; 80061; 82306; 82607

== ENCOUNTER 2023-08-31 09:01 | Outpatient (RCR) | payer BC, SELFPAY | END 2023-08-31 19:00 | disposition home or self-care (01) | LOC: OT 09:01 | PROVIDERS: PCP Family Medicine; Referring Provider Family Medicine; Visit Provider Family Medicine | DX: G35 Multiple sclerosis (principal) ==

== ENCOUNTER → 2023-11-17 | Outpatient (CLI) | payer BC, SELFPAY ==
[2023-11-17 15:54] LABS: Absolute Lymphocyte Count 1.52 X10^3/uL (0.83-4.51); Absolute Neutrophil Count 7.7 X10^3/uL (2.0-7.7); Basophil# 0.06 X10^3/uL; Basophil% 0.6 % (0-1); Eosinophil# 0.08 X10^3/uL; Eosinophils% 0.8 % (0-5); Hematocrit 48.9 % (37-47); Hemoglobin 15.8 g/dL (12.0-15.0); Lymphocyte # 1.52 X10^3/ul (0.83-4.51); Lymphocyte % 15.4 % (19-41); Mean Corp Hgb Conc 32.3 g/dL (32-36); Mean Corpuscular Hgb 28.5 pg (27.0-32.0); Mean Corpuscular Volume 88.1 fL (81-99); Mean Platelet Vol. 9.5 fl (6.2-12.0); Monocyte# 0.42 X10^3/uL; Monocyte% 4.3 % (0-10); NRBC Flagged by Analyzer 0 % (0-5); Neutrophil % 78.3 % (47-70); Platelet Count 339 K/mm3 (150-450); RBC Distribution Width SD 42.2 fl (35.1-43.9); Red Blood Count 5.55 M/mm3 (4.2-5.4); White Blood Count 9.8 K/mm3 (4.4-11.0)
[2023-11-17 16:13] LABS: Vitamin D,25 Hydroxy 22.4 ng/mL
[2023-11-17 16:49] LABS: ALB/GLOB Ratio 1.1 RATIO (0.9-2.4); AST(SGOT) 37 U/L (15-37); Alanine Aminotransfer ALT/SGPT 59 U/L (13-56); Albumin, Serum 4.2 g/dL (3.2-5.0); Alkaline Phosphatase 112 U/L (45-117); Anion Gap 8 (5-15); BUN 19 mg/dL (7-18); BUN/Creat Ratio 16.4 RATIO (10-20); Calcium,Total 9.8 mg/dL (8.5-10.1); Chloride 110 mmol/L (98-107); Cholesterol 196 mg/dL (200); Creatinine, Serum 1.16 mg/dL (0.55-1.02); EST Glomerular Filtration Rate 50 mL/min (>60); Est Glom Filt Rate - Afr Amer 61 mL/min (>60); Globulin 3.9 g/dL (2.2-4.2); Glucose 109 mg/dL (74-106); High Density Lipoprotein 54 mg/dL; Protein, Total 8.1 g/dL (6.4-8.2); Sodium Level 139 mmol/L (136-145); Thyroid Stim Hormone (TSH) 1.47 uIU/mL (0.358-3.74); Triglycerides 165 mg/dL; Very Low Density Lipoprotein 33 mg/dL (5-40)
== END | disposition home or self-care (01) ==
PROVIDERS: PCP Family Medicine; Referring Provider Family Medicine; Visit Provider Family Medicine
DX: I10 Essential (primary) hypertension (principal); E55.9 Vitamin D deficiency, unspecified; E78.2 Mixed hyperlipidemia
CPT/HCPCS: 36415; 80053; 80061; 82306; 84443; 85025

== ENCOUNTER → 2023-12-17 | Outpatient (CLI) | payer BC, SELFPAY ==
--- NOTE | 2023-12-17 07:51 | MRI_ITS ---
STUDY: MRI CERVICAL SPINE WITH AND WITHOUT CONTRAST REASON FOR EXAM: Female, 63 years old. MS FOLLOW UP TECHNIQUE: Standardized fat and water weighted pulse sequences were obtained in the sagittal and axial following administration of 19 mL of IV Clariscan.. COMPARISON: None FINDINGS: Normal foramen magnum and brainstem-cervical cord junction. Normal craniovertebral junction. Normal anterior atlantoaxial articulation. Normal odontoid process. Normal cervical lordosis. Normal vertebral bodies and posterior osseous elements. C2-3: Normal endplates. Normal disc height, signal and morphology. Normal central canal and intervertebral neural foramina. C3-4: Normal endplates. Mild disc space height narrowing. Mild ventral extra dural defect due to minimal retrolisthesis of C3 on C4 with small posterior bulging annulus. Normal central canal and intervertebral neural foramina. C4-5: Normal endplates. Normal disc height. Mild ventral extradural defect due to posterior bulging annulus. Normal central canal and intervertebral neural foramina. C5-6: Normal endplates. Normal disc height, signal and morphology. Normal central canal and intervertebral neural foramina. C6-7: Normal endplates. Normal disc height. Mild ventral extradural defect due to posterior bulging annulus. Normal central canal and intervertebral neural foramina. C7-T1: Normal endplates. Normal disc height, signal and morphology. Normal central canal and intervertebral neural foramina. T1-T2, T2-T3, T3-T4, T4-T5 and T5-T6: (Sagittal only). Normal endplates. Normal disc height, signal and morphology. Normal central canal and intervertebral neural foramina. Abnormal intramedullary high signal intensity of the spinal cord along the C2 vertebral body level with mild cord expansion and along the upper T1 down to mid T2 vertebral body level with mild cord atrophy on STIR sequence. Abnormal high signal intensity along the lower anterior medulla on the STIR sequence. These are MS plaques but are nonenhancing. Following IV contrast administration, there are no enhancing active MS plaques throughout the cervical spine. There are no abnormally enhancing lesions intradurally and extradurally. Normal visualized soft tissue structures. MRI/Spine Cervical W/WO Contrast IMPRESSION: 1. No MRI evidence of active enhancing MS plaques in the cervical spine and the upper thoracic spine. 2. Abnormal intramedullary high signal intensity of the cervical spinal cord along the C2 vertebral body level with minimal cord expansion and along the T1 vertebral body level and down to the mid T2 vertebral body level with cord atrophy on STIR sequence and abnormal high signal intensity on the anterior aspect of the lower medulla on STIR sequence. These are all nonenhancing MS plaques. Electronically Signed: Yayo Chester MD at 10:18 EST ,
--- NOTE | 2023-12-17 07:51 | MRI_ITS ---
STUDY: MRI BRAIN WITH AND WITHOUT CONTRAST REASON FOR EXAM: Female, 63 years old. MS FOLLOW UP TECHNIQUE: Standardized multiplanar fat and water weighted pulse sequences were obtained. IV 19ml clariscan was administered for the contrast portion of the examination. COMPARISON: CT head November 09, 2007 images only FINDINGS: Normal size of the ventricles and extra-axial spaces for the patient''s age. Moderate confluent periventricular T2 lengthening. Isolated punctate focus of restricted diffusion precentral gyrus on the left. Normal bilateral basal ganglia. Normal thalami. There is no extra-axial fluid accumulation. Normal flow voids within the major intracranial circulation suggesting patency by spin echo criteria. Normal venous enhancement. There is no enhancing intra-axial or extra-axial abnormality. Normal sella turcica, pituitary gland, infundibular stalk, optic chiasm and hypothalamus. Normal tectal plate and pineal gland. Normal midbrain, roel and medulla. Normal cerebellum. Normal basal cisterns. Normal bilateral temporal bones. Normal bilateral internal auditory canals. No demonstrated orbital abnormality, within the constraints of a routine brain study. Normal visualized paranasal sinuses. Normal calvarium and skull base. Normal visualized soft tissue structures. Normal visualized upper cervical spine. MRI/Brain W/WO Contrast IMPRESSION: Moderate periventricular white matter disease consistent with patient''s history of multiple sclerosis. Isolated punctate focus of enhancement left precentral gyrus may represent active demyelination. Electronically Signed: Michael Reaves MD at 23:26 EST ,
--- NOTE | 2023-12-17 07:51 | MRI_ITS ---
STUDY: MRI THORACIC SPINE WITH AND WITHOUT CONTRAST REASON FOR EXAM: Female, 63 years old. MS FOLLOW UP TECHNIQUE: IV 19ml clariscan was administered for the contrast portion of the examination. COMPARISON: None. FINDINGS: Normal kyphosis of the thoracic spine. There is no substantial scoliosis. T1-2, T2-3, T3-4, T4-5, T5-6, T6-7, T7-8, T8-9, T9-10, T10-11, T11-12: Normal endplates. Normal disc hydration, heights and morphology of the corresponding intervertebral discs. Normal central canal and intervertebral neural foramina at the corresponding levels. Normal visualized thoracic cord. Normal conus medullaris that terminates at the . The soft tissue structures are unremarkable. There is no enhancing abnormality. MRI/Spine Thoracic W/WO Contrast IMPRESSION: Normal unenhanced and enhanced MRI examination of the thoracic spine. Electronically Signed: Michael Reaves MD at 23:48 EST ,
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
== END | disposition home or self-care (01) ==
PROVIDERS: PCP Family Medicine
DX: G35 Multiple sclerosis (principal)
CPT/HCPCS: 70553; 72156; 72157; A9575

== ENCOUNTER 2024-06-26 15:11 | Inpatient (IN) | payer OTHER, SELFPAY ==
[2024-06-26] VITALS (8 sets, daily range): BP systolic 157–192; BP diastolic 87–132; PULSE 90–104; RESP 15–24; TEMP 36.6–36.9; O2SAT 95–98; BMI 32.7; BMI 31.4
--- NOTE | 2024-06-26 16:27 | EDS_ITS ---
HPI History of Present Illness Chief Complaint: Numb/Ting Detail of Chief Complaint: Generalized weakness, difficulty ambulating, requiring more assistance Informant: patient and spouse/S.O. Onset/Context/Timing Onset: Month(s) (Symptoms started approximately 6 months ago, worse the past 4 to 6 weeks.) Context: - (Generalized weakness with weekly exacerbations) Timing: Continuous and Waxes and wanes Quality: Patient has a shuffled gait. She has had a shuffled gait for 6 months. Current Severity: Mild Maximum Severity: Severe Worsened by: History of MS Relieved by: Nothing Associated Symptoms Associated Symptoms: Nothing Narrative Narrative: Patient is a 63-year-old woman who was diagnosed with MS in 1961. She lives with her . She fell and required assistance by her children since her was golfing. This occurred several weeks ago. Patient's had trouble ambulating for the past 6 months. states 1 she gets her up she is able to shuffle to go to use the restroom. Approximately once a week for the past 4 to 6 weeks she has not been able to get up. Patient is present on no medication. Review of records indicates she has hypertension and should be on lisinopril and Cymbalta. She is on no medication for MS. She had an MRI of her brainFebruary 2023 which apparently revealed an active lesion per neurologist at [facility]. He ordered a MRI that was declined. Insurance declined because patient had MRI 6 months prior. She also had MRI of her cervical and thoracic spine. Prior similar symptoms: Yes Recent Illness/Hospitalization: No [facility] Medical History Depression Hypertension Home Medications ?Medication ?Instructions ?Recorded ?Last Taken ?Type duloxetine 60 mg capsule,delayed 60 mg PO DAILY DEPRESSION 04/12/15 Unknown History release (Cymbalta) lisinopril 10 mg tablet 10 mg PO DAILY BP 06/29/19 Unknown History dietary supplement cap PO 06/26/24 Unknown History Allergy/AdvReac Type Severity Reaction Status Date / Time morphine Allergy Chest Verified 06/29/19 10:08 tightness Surgical History Hx of bilateral breast reduction surgery History of total replacement of both hip joints Hx of cholecystectomy Hx of appendectomy Social History (Updated 06/26/24 @ 16:[address] Johnny Tillman MD) household members: spouse Smoking Status: Never smoker ROS ROS ED Constitutional Constitutional ED: Denies chills, fever(s), subjective, sweats or weight loss Eyes Eyes: Denies blurry vision, change in vision or diplopia ENT ENT ED: Denies ear pain, rhinorrhea or sore throat Cardiovascular Cardiovascular: Denies chest pain or palpitations Respiratory/Chest Respiratory/Chest: Denies cough, dyspnea or dyspnea on exertion Gastrointestinal Gastrointestinal: Denies abdominal pain, diarrhea, nausea or vomiting Genitourinary Genitourinary ED: Denies dysuria, hematuria or urinary frequency Musculoskeletal Musculoskeletal: Denies arthralgias, back pain, myalgias or neck pain Integumentary Denies Abrasions or rash Neurologic Neurologic: Reports paresthesias, weakness and other Details: Patient has paresthesia tips of all her fingers and toes. ; Denies headache(s) Endocrine Endocrinology: Denies cold intolerance or heat intolerance Hematologic/Lymphatic Hematologic/Lymphatic: Reports systems reviewed and no addt'l complaints, except as documented EXAM Physical Exam Const Vital Signs: 06/26/24 15:13 06/26/24 15:17 06/26/24 17:11 Temperature 98.3 F 98.3 F Temperature Source Oral Oral Pulse Rate 104 H 101 H 95 Respiratory Rate 24 H 17 16 Blood Pressure 165/87 H 171/127 H Blood Pressure Mean 113 141 Pulse Ox 97 98 Oxygen Delivery Method Room Air 06/26/24 19:00 Temperature Temperature Source Pulse Rate 94 Respiratory Rate 16 Blood Pressure 157/109 H Blood Pressure Mean 125 Pulse Ox 95 Oxygen Delivery Method Room Air Positive well nourished and well developed General Appearance ED: well developed and NAD HEENT Reports moist mucous membranes HEENT Narrative: Head is atraumatic no cephalic. Ears normal. Nares patent. Posterior pharynx is normal. No dental trauma. Eyes PERRL and EOMs intact bilaterally General Eye ED: Negative for pale conjunctiva or scleral icterus Neck no lymphadenopathy and supple Resp normal respiratory effort and clear to auscultation bilaterally Cardio regular rate, regular rhythm, S1 normal heart sound, S2 normal heart sound and no murmurs GI normal to inspection, nondistended, normoactive bowel sounds, non-tender, non-distended and no masses; Negative for hepatosplenomegaly Auscultation: normoactive bowel sounds Palpation: soft Extremity normal to inspection General Extremety ED: Negative for edema or tenderness General Extremity: Negative for edema Neuro oriented x3 and CN's II-XII intact bilaterally Neuro Narrative: DTRs are 3+ bicep, brachialis, tricep, patella and ankle. There is no clonus or Babinski sign noted. There is no dysmetria. Order was placed to have nurse ambulate. Sensorium / Orientation: alert Sensory Exam: sensory level loss detected Psych Psych Narrative: Affect is flat. Mood & Affect: depressed Skin no rashes or lesions noted, no wounds and skin turgor normal MDM MDM Lab Data Labs: Laboratory Results - last 24 hr 06/26/24 16:00 WBC 8.1 RBC 5.30 Hgb 15.7 H Hct 47.4 H MCV 89.4 MCH 29.6 MCHC 33.1 RDW Std Deviation 42.5 RDW Coeff of [place] 13.2 Plt Count 324 MPV 9.7 Immature Gran % (Auto) 0.700 Neut % (Auto) 73.1 H Lymph % (Auto) 18.3 L [place] % (Auto) 5.4 Eos % (Auto) 1.5 Baso % (Auto) 1.0 Absolute Neuts (auto) 5.9 Absolute Lymphs (auto) 1.48 Nucleated RBC % 0 Sodium 142 Potassium 3.7 Chloride 109 H Carbon Dioxide 24.0 Anion Gap 9 BUN 19 H Creatinine 1.23 H Estim Creat Clear Calc 55.31 Est GFR (MDRD) Af Amer 57 L Est GFR (MDRD) Non-Af 47 L BUN/Creatinine Ratio 15.4 Glucose 128 H Calcium 9.9 Management Discussion w/another healthcare provider: Senior [employer] (Spoke with neurologist at [facility] per hospitalist request. Patient's history physical findings were related to the neurologist. She recommended an MRI tomorrow and a UA. She states they would be glad to perform a teleneurology consult after the MRI has been performed.) Discharge Plan Triage Chief Complaint: Numb/Ting ED Provider: Johnny Tillman Dx/Rx/DC Orders Clinical Impression: Unable to ambulate, Family history of MS (multiple sclerosis), Elevated blood-pressure reading without diagnosis of hypertension Prescriptions: No Action duloxetine [Cymbalta] 60 MG capsule,delayed release(DR/EC) 60 mg PO DAILY Patient Comments: depression lisinopril 10 MG tablet 10 mg PO DAILY dietary supplement Capsule PO Primary Care Provider: Hector Johnson Referrals: Hector Johnson MD [Primary Care Provider] - Print Language: Liberian Disposition Disposition: Acute Care Hospital [facility]
[2024-06-26 16:43] LABS: Anion Gap 9 (5-15); BUN 19 mg/dL (7-18); BUN/Creat Ratio 15.4 RATIO (10-20); Calcium,Total 9.9 mg/dL (8.5-10.1); Chloride 109 mmol/L (98-107); Creatinine, Serum 1.23 mg/dL (0.55-1.02); EST Glomerular Filtration Rate 47 mL/min (>60); Est Glom Filt Rate - Afr Amer 57 mL/min (>60); Estimated Creatinine Clearance 55.31 ml/min; Glucose 128 mg/dL (74-106); Potassium 3.7 mmol/L (3.5-5.1); Sodium Level 142 mmol/L (136-145)
[2024-06-26 16:44] LABS: Absolute Lymphocyte Count 1.48 X10^3/uL (0.83-4.51); Absolute Neutrophil Count 5.9 X10^3/uL (2.0-7.7); Basophil# 0.08 X10^3/uL; Eosinophil# 0.12 X10^3/uL; Eosinophils% 1.5 % (0-5); Hematocrit 47.4 % (37-47); Hemoglobin 15.7 g/dL (12.0-15.0); Lymphocyte # 1.48 X10^3/ul (0.83-4.51); Lymphocyte % 18.3 % (19-41); Mean Corp Hgb Conc 33.1 g/dL (32-36); Mean Corpuscular Hgb 29.6 pg (27.0-32.0); Mean Corpuscular Volume 89.4 fL (81-99); Mean Platelet Vol. 9.7 fl (6.2-12.0); Monocyte# 0.44 X10^3/uL; Monocyte% 5.4 % (0-10); NRBC Flagged by Analyzer 0 % (0-5); Neutrophil # 5.91 X10^3/uL (2.7-7.7); Neutrophil % 73.1 % (47-70); Platelet Count 324 K/mm3 (150-450); RBC Distribution Width CV 13.2 % (11.6-14.6); RBC Distribution Width SD 42.5 fl (35.1-43.9); White Blood Count 8.1 K/mm3 (4.4-11.0)
--- NOTE | 2024-06-26 20:19 | PCM.HP.STD ---
HPI - General General Date of Admission: 06/26/24 Date of Service: 06/26/24 Chief Complaint: Weakness HPI Narrative ESTHER AGGARWAL, is a 63 F with a significant history of multiple sclerosis who presents to the emergency department with weakness above her baseline. Reportedly in 1991 patient was diagnosed with multiple sclerosis at the [facility]. In January this year she had an MRI that showed a new lesion in her brain and her neurologist wanted a repeat MRI in 6 months time. However her insurance will not pay for a repeat MRI. Reportedly once in the week patient has increase in her weakness. At baseline she is unable to walk except that she can stand up and shuffle a few steps into a wheelchair. However about once a week she is even unable to stand and her daughters together with her help her. However on the day of presentation her daughters were not available and her could not help the patient alone by himself so patient was brought to the emergency department. [facility] Medical History (Updated 06/26/24 @ 20:[address] Josr Larose MD) Depression Hypertension Home Medications ?Medication ?Instructions ?Recorded ?Last Taken ?Type duloxetine 60 mg capsule,delayed 60 mg PO DAILY DEPRESSION 04/12/15 Unknown History release (Cymbalta) lisinopril 10 mg tablet 10 mg PO DAILY BP 06/29/19 Unknown History dietary supplement cap PO 06/26/24 Unknown History Allergy/AdvReac Type Severity Reaction Status Date / Time morphine Allergy Chest Verified 06/29/19 10:08 tightness Family History Other Cancer Lupus Porphyria Surgical History Hx of bilateral breast reduction surgery History of total replacement of both hip joints Hx of cholecystectomy Hx of appendectomy Social History household members: spouse Smoking Status: Never smoker ROS ROS Narrative Pertinent positives and pertinent negatives as noted in HPI. All other systems were reviewed and are negative Vital Signs Vital Signs Vital Signs: 06/26/24 15:13 06/26/24 15:17 06/26/24 17:11 Temperature 98.3 F 98.3 F Temperature Source Oral Oral Pulse Rate 104 H 101 H 95 Respiratory Rate 24 H 17 16 Blood Pressure 165/87 H 171/127 H Blood Pressure Mean 113 141 Pulse Ox 97 98 Oxygen Delivery Method Room Air 06/26/24 19:00 06/26/24 20:00 06/26/24 20:12 Temperature 98.5 F Temperature Source Pulse Rate 94 100 92 Respiratory Rate 16 18 18 Blood Pressure 157/109 H 192/93 H 180/132 H Blood Pressure Mean 125 126 148 Pulse Ox 95 95 96 Oxygen Delivery Method Room Air Room Air Weight Weight: 94.7 kg Body Mass Index (BMI) 32.7 Physical Exam Narrative Physical exam: General: Well-nourished, well-developed. Head: Normocephalic, atraumatic, no tenderness Eyes: Vision is grossly intact. EOMI ENT, no trauma, moist mucous membranes, no rhinorrhea Neck: Nontender, No thyromegaly. CVS: Regular rate and rhythm. S1-S2 present. No murmur, gallop or rub. Respiratory : clear to auscultation bilaterally, chest wall nontender Abdomen: Soft, nontender, nondistended, normal bowel sounds, no masses : Deferred Back: Nontender, no CVA tenderness, no midline spinal tenderness, deformities, step-offs Extremities: Unable to raise left lower extremity as high as right lower extremity. Strength in left lower extremity decreased compared to strength in right lower extremity. Strength in right upper extremity and left upper extremity equal. Skin: Normal color, no trauma, abrasions Neuro: Alert, oriented, cranial nerves II through XII grossly intact. Psychiatry: Normal mood. Normal affect. Not depressed. Not anxious. Results Lab / Micro Data 06/26/24 16:00 06/26/24 16:00 Labs: Laboratory Results - last 24 hr 06/26/24 16:00: WBC 8.1, RBC 5.30, Hgb 15.7 H, Hct 47.4 H, MCV 89.4, MCH 29.6, MCHC 33.1, RDW Std Deviation 42.5, RDW Coeff of [place] 13.2, Plt Count 324, MPV 9.7, Immature Gran % (Auto) 0.700, Neut % (Auto) 73.1 H, Lymph % (Auto) 18.3 L, [place] % (Auto) 5.4, Eos % (Auto) 1.5, Baso % (Auto) 1.0, Absolute Neuts (auto) 5.9, Absolute Lymphs (auto) 1.48, Nucleated RBC % 0, Sodium 142, Potassium 3.7, Chloride 109 H, Carbon Dioxide 24.0, Anion Gap 9, BUN 19 H, Creatinine 1.23 H, Estim Creat Clear Calc 55.31, Est GFR (MDRD) Af Amer 57 L, Est GFR (MDRD) Non-Af 47 L, BUN/Creatinine Ratio 15.4, Glucose 128 H, Calcium 9.9 Assessment & Plan Assessment/Plan (1) Unable to ambulate: (2) Hypertension: QUALIFIERS: Hypertension type: primary hypertension Qualified Code(s): I10 - Essential (primary) hypertension (3) History of multiple sclerosis: (4) Weakness: PLAN: Plan Patient inability to walk could be a flare of her multiple sclerosis. Discussed with ED doctor to consult tele-neurologist. Per tele-neurology recommendation will get MRI of the brain. Reconsult neurology if MRI is abnormal. Review of records shows multiple blood pressure readings in the past and in the present. Patient will be diagnosed with essential hypertension and started on blood pressure medications. Amlodipine ordered. PT and OT consult. DVT prophylaxis?subcutaneous Lovenox ordered. Time spent in the patient's overall evaluation,decision-making process, review of diagnostic data, adjustment of management, discussion with other providers, nursing and ancillary staff involved in patient's care documentation, 70 minutes. Advance care planning: Discussed with patient and family advanced directives as well as CODE STATUS. Explained various CODE STATUS: FULL CODE, DNR CCA, DNR CCA with no intubation, and DNR CC- and what each meant. Patient elected to be a DNR CCA with no intubation. Order was placed. Surrogate decision maker is patient's . Time spent on discussion 16 minutes. Charges/Coding Visit Charges Inpatient E&M: 71682 Init Hosp L3 Procedures Hospitalists Procedures: 94131 Advncd Care Plan addl 30 Min
[2024-06-26 20:34] LABS: Mucous, Urine 0 SEEN /hpf (<or=2+); Squamous Epithelial Cells - UA 0 SEEN /hpf (5-10)
[2024-06-26 20:41] LABS: Color, Urine Yellow (Yellow); Glucose, Dipstick Normal (Normal); Ketone-Dipstick 5 mg/dl (Negative); Leukocyte Esterase-Dipstick 500 /ul (Negative); Nitrite-Dipstick Positive (Negative); Occult Blood-Urine 250 /ul (Negative); Protein-Dipstick 100 mg/dl (Negative); Specific Gravity, Urine 1.015 (1.002-1.030); Urine Bilirubin Dipstick Negative (Negative); Urine Clarity Turbid (Clear); Urine Urobilinogen Normal (Normal)
[2024-06-26 20:58] LABS: Bacteria 4+ /hpf (None Seen)
[2024-06-26 20:59] LABS: Red Blood Cells-Urine 5-10 SEEN /hpf (0-5)
[2024-06-26 21:03] LABS: White Blood Cells >100 SEEN /hpf (0-5)
[2024-06-26] MEDS: amLODIPine 5 MG Tablet PO (23:28)
[2024-06-27] MEDS: Ibuprofen 200 MG Tablet PO (00:17)
[2024-06-27 04:03] VITALS: BP 134/80; PULSE 91; RESP 15; TEMP 36.3; O2SAT 97
[2024-06-27 06:33] LABS: Absolute Lymphocyte Count 1.54 X10^3/uL (0.83-4.51); Absolute Neutrophil Count 4.3 X10^3/uL (2.0-7.7); Basophil# 0.06 X10^3/uL; Basophil% 0.9 % (0-1); Eosinophil# 0.17 X10^3/uL; Eosinophils% 2.6 % (0-5); Hematocrit 41.6 % (37-47); Hemoglobin 13.7 g/dL (12.0-15.0); Lymphocyte # 1.54 X10^3/ul (0.83-4.51); Lymphocyte % 23.3 % (19-41); Mean Corp Hgb Conc 32.9 g/dL (32-36); Mean Corpuscular Hgb 29.8 pg (27.0-32.0); Mean Corpuscular Volume 90.6 fL (81-99); Mean Platelet Vol. 9.1 fl (6.2-12.0); Monocyte# 0.51 X10^3/uL; Monocyte% 7.7 % (0-10); NRBC Flagged by Analyzer 0 % (0-5); Neutrophil # 4.29 X10^3/uL (2.7-7.7); Neutrophil % 64.9 % (47-70); Platelet Count 256 K/mm3 (150-450); RBC Distribution Width CV 13.2 % (11.6-14.6); Red Blood Count 4.59 M/mm3 (4.2-5.4); White Blood Count 6.6 K/mm3 (4.4-11.0)
[2024-06-27 07:02] LABS: Anion Gap 4 (5-15); BUN 20 mg/dL (7-18); BUN/Creat Ratio 18.3 RATIO (10-20); Calcium,Total 9.1 mg/dL (8.5-10.1); Chloride 113 mmol/L (98-107); Creatinine, Serum 1.09 mg/dL (0.55-1.02); EST Glomerular Filtration Rate 54 mL/min (>60); Est Glom Filt Rate - Afr Amer 65 mL/min (>60); Estimated Creatinine Clearance 61.25 ml/min; Glucose 119 mg/dL (74-106); Potassium 3.9 mmol/L (3.5-5.1); Sodium Level 142 mmol/L (136-145)
[2024-06-27] MEDS: Enoxaparin 40 MG/0.4 ML Syringe SC (08:29)
[2024-06-27] MEDS: amLODIPine 5 MG Tablet PO ×2 (08:29→14:22)
[2024-06-27 09:47] VITALS: BP 139/88; PULSE 88; RESP 16; TEMP 36.9; O2SAT 98
[2024-06-27 11:53] VITALS: BP 148/95; PULSE 95; RESP 16; TEMP 36.6; O2SAT 96
--- NOTE | 2024-06-27 13:47 | PCM.PN.HOSP ---
Reason for Visit Reason for Visit: Difficulty walking/weakness Subjective Subjective Mrs. Alvarez is a 63-year-old white female with a history of multiple sclerosis which was diagnosed in 1991 who presented to the emergency department at [facility] due to worsening weakness in her lower extremities and now the inability to walk. Patient reported that in January of this year she had an MRI that showed a new brain lesion. This was done here and her neurologist down at [facility] wanted to repeat MRI in 6 months time. This was ordered however the insurance denied the study. The patient reports over the last couple of weeks she has had decreased ability to ambulate with marked weakness in her lower extremities. Her states it seems like the left leg is worse than the right. Currently she is unable to ambulate and only can stand up and shuffle a few steps to her wheelchair. She has never been on any medications for her multiple sclerosis. Vital signs on presentation showed temperature 98.3, heart rate 101, respiratory 24, blood pressure is 165/87 and pulse ox was 97% on room air. CBC was unremarkable. Chemistry panel showed normal electrolytes with a BUN of 19 and a serum creatinine of 1.23 which appears to be consistent with her baseline. Glucose was 128. Her urine did appear to be consistent with infection having occult blood, nitrite, leuk esterase, greater than 100 white cells per high-power field and 4+ bacteria. She was admitted to the medical floor at the recommendation of [facility] teleneurology in the emergency department to obtain an MRI with instructions to consult if there are any abnormalities noted on the imaging. Patient reports no new symptoms since she has arrived. In addition to her lower extremity weakness, she reports that her hands are tingly at the fingertips on all 5 digits bilaterally and this is new as well. She also reports that she is frequently incontinent of urine and has about 4 bowel movements a day of which sometimes she is incontinent. She states she has had previous colonoscopy but nothing recently and it has been over 10 years since her previous testing. Objective Data Objective Data Vital Signs: Vital Signs Temp Pulse Resp BP Pulse Ox O2 Del Method 98 F 95 16 148/95 H 96 Room Air 06/27/24 11:53 06/27/24 11:53 06/27/24 11:53 06/27/24 11:53 06/27/24 11:53 06/27/24 13:21 Oxygen Delivery Method Room Air Weight: 91.2 kg Body Mass Index (BMI) 31.4 Intake & Output: Intake and Output for Last 24 Hours 06/25/24 06/26/24 06/27/24 23:59 23:59 23:59 Intake Total 0 / 50 450 / 450 Output Total 300 / 300 Balance 0 / -50 150 / 150 Lab / Micro Data 06/27/24 06:10 06/27/24 06:10 Labs: Laboratory Results - last 24 hr 06/26/24 16:00: WBC 8.1, RBC 5.30, Hgb 15.7 H, Hct 47.4 H, MCV 89.4, MCH 29.6, MCHC 33.1, RDW Std Deviation 42.5, RDW Coeff of [place] 13.2, Plt Count 324, MPV 9.7, Immature Gran % (Auto) 0.700, Neut % (Auto) 73.1 H, Lymph % (Auto) 18.3 L, [place] % (Auto) 5.4, Eos % (Auto) 1.5, Baso % (Auto) 1.0, Absolute Neuts (auto) 5.9, Absolute Lymphs (auto) 1.48, Nucleated RBC % 0, Sodium 142, Potassium 3.7, Chloride 109 H, Carbon Dioxide 24.0, Anion Gap 9, BUN 19 H, Creatinine 1.23 H, Estim Creat Clear Calc 55.31, Est GFR (MDRD) Af Amer 57 L, Est GFR (MDRD) Non-Af 47 L, BUN/Creatinine Ratio 15.4, Glucose 128 H, Calcium 9.9 06/26/24 20:30: Urine Color Yellow, Urine Clarity Turbid, Urine pH 7.0, Ur Specific [place] 1.015, Urine Protein 100 H, Urine Glucose (UA) Normal, Urine Ketones 5 H, Urine Occult Blood 250 H, Urine Nitrite Positive H, Urine Bilirubin Negative, Urine Urobilinogen Normal, Ur Leukocyte Esterase 500 H, Urine RBC 5-10 SEEN, Urine WBC >100 SEEN, Ur Squamous Epith Cells 0 SEEN, Urine Bacteria 4+, Urine Mucus 0 SEEN 06/27/24 06:10: WBC 6.6, RBC 4.59, Hgb 13.7, Hct 41.6, MCV 90.6, MCH 29.8, MCHC 32.9, RDW Std Deviation 44.0 H, RDW Coeff of [place] 13.2, Plt Count 256, MPV 9.1, Immature Gran % (Auto) 0.600, Neut % (Auto) 64.9, Lymph % (Auto) 23.3, [place] % (Auto) 7.7, Eos % (Auto) 2.6, Baso % (Auto) 0.9, Absolute Neuts (auto) 4.3, Absolute Lymphs (auto) 1.54, Nucleated RBC % 0, Sodium 142, Potassium 3.9, Chloride 113 H, Carbon Dioxide 25.0, Anion Gap 4 L, BUN 20 H, Creatinine 1.09 H, Estim Creat Clear Calc 61.25, Est GFR (MDRD) Af Amer 65, Est GFR (MDRD) Non-Af 54 L, BUN/Creatinine Ratio 18.3, Glucose 119 H, Calcium 9.1 Physical Exam Const alert, oriented x3, no apparent distress and well nourished Constitutional Narrative: Obese, middle-aged, white female, lying in bed, at bedside, interacts appropriately however she does rely on her for some of her history as she seems to be mildly forgetful at times, does not appear toxic HEENT head/scalp atraumatic, moist oral mucous membranes and oropharynx normal HEENT Narrative: Mallampati 3, no thrush Head and Scalp: normocephalic Eyes PERRL, EOMs intact bilaterally and conjunctivae normal Eyes Narrative: No scleral icterus Neck no lymphadenopathy and supple Neck Narrative: Neck is short and thick, trachea midline, no thyroid enlargement Resp normal respiratory effort, no retractions, no use of accessory muscles and clear to auscultation bilaterally Auscultation: Negative for crackles, rhonchi or wheezes Cardio regular rate, regular rhythm, S1 normal heart sound, S2 normal heart sound, no murmurs, no rub, no gallops and no clicks GI normal to inspection, nondistended, normoactive bowel sounds, soft to palpation and non-tender Extremity no clubbing, cyanosis or edema Extremity Narrative: Pedal and radial pulses are 2+ Skin no rashes or lesions noted, no wounds, skin turgor normal, no jaundice, no petechiae and no mottling Neuro oriented x3 Neuro Narrative: 6 beat clonus right lower extremity, 4 beat clonus left lower extremity, hyperreflexia at the patella bilaterally 3+, decreased strength bilateral lower extremity from the hip to the ankle with improved strength distally, no significant motor abnormalities upper extremity Speech: speech normal Psych Psych Narrative: Affect is slightly flat, eye contact is good, patient interacts appropriately Assessment & Plan Assessment/Plan (1) Weakness: (2) Elevated blood-pressure reading without diagnosis of hypertension: (3) Abnormal urinalysis: PLAN: Plan Bilateral lower extremity weakness/hand tingling/inability ambulate with history of multiple sclerosis -MRI brain pending to assess for any new lesions -MRI brain from 12/17/2023 reviewed and noted to have moderate periventricular white matter disease consistent with multiple sclerosis history and isolated punctate enhancement of the left precentral gyrus that was concerning for possible acute demyelination -Patient also have an abnormality in the cervical spine along the C2 vertebral body level with minimal cord expansion along the T1 vertebral body level down to the mid T2 vertebral body level with cord atrophy consistent with nonenhancing MS plaques -Will consult neurology if new imaging identifies new lesions -Add cervical spine MRI -PT/OT consultation -Patient does follow with [facility] for management of her MS Uncontrolled hypertension -Amlodipine 5 mg added and blood pressures are better however still not at goal -Goal should be less than 130/80 -Will increase amlodipine dose to 10 mg daily giving a one-time 5 mg dose today -Continue to monitor blood pressure -It does appear the patient had previously been prescribed lisinopril but was not taking this Abnormal UA -UA is consistent with marked infection -Patient is incontinent at baseline -Check urine culture -After urine culture sent will start ceftriaxone 1 g daily -Patient does have history of pyelonephritis/nephrolithiasis but no back pain at this time History of depression Was previously on Cymbalta but not currently taking History of osteoarthritis -History of bilateral hip total arthroplasty Obesity -BMI is 31.5 -Recommend weight loss -Complicates treatment, prognosis, outcomes DVT prophylaxis -Continue enoxaparin 40 mg daily CODE STATUS DNR CCA with no intubation Charges/Coding Visit Charges Inpatient E&M: 46394 Subs Hosp L3
[2024-06-27] MEDS: 0.9% Saline Lock 10 ML Syringe IV (14:27)
[2024-06-27] MEDS: Ceftriaxone 1 GM/50 ML BAG IV (14:31)
[2024-06-27 14:44] VITALS: BP 137/74; PULSE 99; RESP 16; TEMP 36.7; O2SAT 95
[2024-06-27 20:28] VITALS: BP 149/89; PULSE 95; RESP 16; TEMP 36.9; O2SAT 95
[2024-06-28 03:15] VITALS: BP 132/73; PULSE 91; RESP 16; TEMP 36.8; O2SAT 95
[2024-06-28 06:32] LABS: Anion Gap 8 (5-15); BUN 18 mg/dL (7-18); BUN/Creat Ratio 16.5 RATIO (10-20); Calcium,Total 9.2 mg/dL (8.5-10.1); Chloride 109 mmol/L (98-107); Creatinine, Serum 1.09 mg/dL (0.55-1.02); EST Glomerular Filtration Rate 54 mL/min (>60); Est Glom Filt Rate - Afr Amer 65 mL/min (>60); Estimated Creatinine Clearance 61.25 ml/min; Glucose 112 mg/dL (74-106); Potassium 3.9 mmol/L (3.5-5.1); Sodium Level 143 mmol/L (136-145)
--- NOTE | 2024-06-28 09:30 | MRI_ITS ---
HISTORY: MS. TECHNIQUE: Multiplanar and multisequence MR images of the cervical spine were obtained without contrast. 276 images. COMPARISON: 12/17/2023. FINDINGS: VERTEBRAE: Vertebral body heights maintained. Chronic C7 vertebral body hemangioma. VERTEBRAL ALIGNMENT: Chronic 2 mm retrolisthesis of C3-4. SPINAL CORD: Multiple zones of increased T2 signal from the cervicomedullary junction to the visualized upper thoracic spine with the most prominent mildly expansile lesion at C2-3, similar to prior. SOFT TISSUES: No prevertebral fluid collection. INTERVERTEBRAL DISCS: C2-3: Minimal disc bulge and degenerative changes of the posterior elements without significant central canal stenosis or foraminal narrowing. C3-4: Mild left paracentral disc protrusion abutting the left traversing nerve root with uncovertebral and facet arthropathy resulting in mild-moderate central canal stenosis and bilateral foraminal narrowing. C4-5, C5-6: Mild disc bulges with uncovertebral and facet arthropathy resulting in mild central canal stenosis and bilateral foraminal narrowing. C6-7: Mild posterior disc protrusion resulting in minimal narrowing of the thecal sac. No significant foraminal narrowing. C7-T1: No significant posterior disc protrusion, central canal stenosis, or foraminal narrowing MRI/Spine Cervical (Routine) IMPRESSION: No significant interval change in multiple zones of increased T2 signal in the cervical cord, compatible with the history of multiple sclerosis. Multilevel degenerative disc disease as above. Electronically Signed: Marla Goldman MD at 11:57 EDT ,
--- NOTE | 2024-06-28 09:30 | MRI_ITS ---
HISTORY: Flare of multiple sclerosis. TECHNIQUE: Multiplanar and multisequence MR images of the brain were obtained before and after the intravenous administration of 19 cc Clariscan. 347 images. COMPARISON: 12/17/2023. FINDINGS: BRAIN PARENCHYMA: Moderate zones of increased T2 FLAIR signal in the bilateral cerebral white matter with involvement of the callososeptal interface, roel, and left middle cerebellar peduncle again seen. No enhancing lesion identified. No abnormal focus of restricted diffusion. No acute intracranial hemorrhage identified. CSF SPACES: Chronic mild volume loss. No significant midline shift or other mass effect.No extra-axial fluid collection. VASCULAR SYSTEM: Major intracranial flow voids are maintained. PARANASAL SINUSES AND MASTOID AIR CELLS: No significant air fluid levels. ORBITS: Bilateral lens resections. Symmetric appearance of the optic nerves without signal abnormality or enhancing lesion. MRI/Brain W/WO Contrast IMPRESSION: Moderate chronic white matter changes without enhancement or restricted diffusion, compatible with nonacute demyelinating disease in a patient with history of multiple sclerosis. Electronically Signed: Marla Goldman MD at 13:30 EDT ,
--- NOTE | 2024-06-28 09:35 | NURSING ---
pt to MRI via bed
[2024-06-28 12:22] VITALS: BP 139/81; PULSE 101; RESP 16; TEMP 37.3; O2SAT 93
[2024-06-28] MEDS: amLODIPine 10 MG Tablet PO (12:27)
[2024-06-28] MEDS: Enoxaparin 40 MG/0.4 ML Syringe SC (12:27)
--- NOTE | 2024-06-28 12:44 | PN.HOSP_ITS ---
Reason for Visit Reason for Visit: Weakness/inability ambulate Subjective Subjective No significant change overnight. I did notify the patient that she does seem to have a urinary tract infection for which antibiotics have been initiated. Still awaiting her MRIs which they are getting ready to do momentarily. Objective Data Objective Data Vital Signs: Vital Signs Temp Pulse Resp BP Pulse Ox O2 Del Method 99.1 F 101 H 16 139/81 H 93 Room Air 06/28/24 12:22 06/28/24 12:22 06/28/24 12:22 06/28/24 12:22 06/28/24 12:22 06/28/24 12:22 Oxygen Delivery Method Room Air Weight: 91.2 kg Body Mass Index (BMI) 31.4 Intake & Output: Intake and Output for Last 24 Hours 06/26/24 06/27/24 06/28/24 23:59 23:59 23:59 Intake Total 0 / 50 850 / 850 200 / 200 Output Total 600 / 600 200 / 200 Balance 0 / -50 250 / 250 0 / 0 Lab / Micro Data 06/27/24 06:10 06/28/24 05:32 Labs: Laboratory Results - last 24 hr 06/28/24 05:32: Sodium 143, Potassium 3.9, Chloride 109 H, Carbon Dioxide 26.0, Anion Gap 8, BUN 18, Creatinine 1.09 H, Estim Creat Clear Calc 61.25, Est GFR (MDRD) Af Amer 65, Est GFR (MDRD) Non-Af 54 L, BUN/Creatinine Ratio 16.5, G lucose 112 H, Calcium 9.2 Micro: Microbiology 06/27/24 00:00 Urine, Clean Catch Urine Culture - Preliminary Gram negative siomara Radiography Diagnostic Testing: Radiology Impression Cervical Spine MRI 06/28/24 09:30 IMPRESSION: No significant interval change in multiple zones of increased T2 signal in the cervical cord, compatible with the history of multiple sclerosis. Multilevel degenerative disc disease as above. Electronically Signed: Marla Goldman MD at 11:57 EDT , Physical Exam Const alert, oriented x3, no apparent distress and well nourished Constitutional Narrative: Obese, middle-aged, white female, lying in bed, and a friend at bedside, interacts appropriately however she does rely on her for some of her history as she seems to be mildly forgetful at times, does not appear toxic HEENT head/scalp atraumatic, moist oral mucous membranes and oropharynx normal HEENT Narrative: Mallampati 3, no thrush Resp normal respiratory effort, no retractions, no use of accessory muscles and clear to auscultation bilaterally Auscultation: Negative for crackles, rhonchi or wheezes Cardio regular rate, regular rhythm, S1 normal heart sound, S2 normal heart sound, no murmurs, no rub, no gallops and no clicks GI normal to inspection, nondistended, normoactive bowel sounds, soft to palpation and non-tender Extremity no clubbing, cyanosis or edema Extremity Narrative: Pedal and radial pulses are 2+ Neuro oriented x3 Speech: speech normal Psych affect normal Psych Narrative: Less flat today, eye contact is good, more interactive Assessment & Plan Assessment/Plan (1) Weakness: (2) Elevated blood-pressure reading without diagnosis of hypertension: (3) Abnormal urinalysis: (4) UTI (urinary tract infection): PLAN: Plan Bilateral lower extremity weakness/hand tingling/inability ambulate with history of multiple sclerosis -MRI brain pending to assess for any new lesions -MRI brain from 12/17/2023 reviewed and noted to have moderate periventricular white matter disease consistent with multiple sclerosis history and isolated punctate enhancement of the left precentral gyrus that was concerning for possible acute demyelination -Patient also have an abnormality in the cervical spine along the C2 vertebral body level with minimal cord expansion along the T1 vertebral body level down to the mid T2 vertebral body level with cord atrophy consistent with nonenhancing MS plaques -Brain and cervical spine MRI pending -[facility] neurology consultation pending -Patient does follow with [facility] for management of her MS -PT/OT following Uncontrolled hypertension -Continue amlodipine 10 mg daily -Add carvedilol 3.125 mg p.o. twice daily to start this evening -Goal should be less than 130/80-> closer to goal today with the up titration of amlodipine but still not at goal -Continue to monitor blood pressure Gram-negative UTI -Urine culture is pending but initial growth shows gram-negative at CFU's greater than 100,000 -Continue ceftriaxone 1 g daily for now -Patient does have history of pyelonephritis/nephrolithiasis but no back pain at this time History of depression Was previously on Cymbalta but not currently taking History of osteoarthritis -History of bilateral hip total arthroplasty Obesity -BMI is 31.5 -Recommend weight loss -Complicates treatment, prognosis, outcomes DVT prophylaxis -Continue enoxaparin 40 mg daily CODE STATUS DNR CCA with no intubation Charges/Coding Visit Charges Inpatient E&M: 68971 Subs Hosp L2
[2024-06-28] MEDS: Ceftriaxone 1 GM/50 ML BAG IV (13:34)
--- NOTE | 2024-06-28 14:45 | CASEMGMT ---
SHELLIE MCCLENDON Assessment: Face to Face with pt for initial transition planning/care coordination assessment. SHELLIE MCCLENDON introduced self and role at [facility], pt voices understanding and consents to assessment. Pt is A&O x4 and answers all questions appropriately at this time. Pt sitting up in bed in no distress. Pt and sister sitting in room, pt agreeable to answering questions with family present. Care providers, pharmacy, and demographics verified/updated. Admitting Dx: Weakness Strata Score: 2 PCP: Alex Specialists: Denies Preferred Pharmacy: [facility] Insurance: [place] Prescription Benefit: yes LNOK: , Daughter Living Arrangements: Pt lives with spouse in a 1 story home with zero stairs to enter. Pt provides assistance for ADLs and IADLs. Transportation: Pt provides transports DME: Wheelchair, rollator, grab bars, lift chair, high rise toilet. HHC/SNF: Denies Hx of. Pt reports provides assistance at home, states pt is too much and he needs assistance. reports pt has become significantly weaker over the past 6 months. SHELLIE MCCLENDON discussed RU, SNF, and and HHC options with pt. Pt chose [facility] RU as first choice, if [facility] denies pt would like a list of local facilities accepted by insurance. SHELLIE MCCLENDON reported information to SW. SOCORRO and CM to follow. Advised pt to ask CM if any further question/concerns/needs arise, voices understanding. Pt Goal: Rehab unit Plan: Rehab unit, SW and CM to follow plan of care. Jocelyn HENSLEY CM
--- NOTE | 2024-06-28 15:56 | CASEMGMT ---
Social Work As per CM, pt would like to go to [facility] inpt rehab. If there is not a bed they are open reviewing a list of rehab facilities. SW called [facility] inpt rehab, there are no beds. SW spoke w/pt, and sister at the bedside. SW introduced self and role of SW in the hospital. SW explained that [facility] in rehab does not have a bed. SW inquired if they would like a list of hospital based rehab or SNFs, SW educated pt and family to the difference. They are not certain, would like to review both. SW created in [facility] lists of both [facility] facilities and hospital based rehab facilities in network w/pt's insurance, in pt's preferred geographic area, and complete w/quality and resource use data. They reviewed the lists and would like referrals to [facility] and [facility]. SW will make the referrals, will continue to follow. MIGUEL Suazo
--- NOTE | 2024-06-28 16:06 | CASEMGMT ---
Social Work Referrals made in [facility] to [facility]. MIGUEL Suazo
[2024-06-28] MEDS: Ibuprofen 600 MG Tablet PO (16:16)
[2024-06-28] MEDS: Carvedilol 3.125 MG TABLET PO (19:33)
[2024-06-28 20:14] VITALS: BP 165/100; PULSE 95; RESP 16; TEMP 36.6; O2SAT 95
[2024-06-28 23:53] VITALS: BP 150/93; PULSE 88; RESP 16; TEMP 37.1; O2SAT 95
[2024-06-29 05:29] VITALS: BP 148/67; PULSE 88; RESP 16; TEMP 36.7; O2SAT 98
[2024-06-29] MEDS: Enoxaparin 40 MG/0.4 ML Syringe SC (09:50)
[2024-06-29] MEDS: amLODIPine 10 MG Tablet PO (09:50)
[2024-06-29] MEDS: Carvedilol 3.125 MG TABLET PO (09:50)
[2024-06-29 10:30] VITALS: BP 160/86; PULSE 91; RESP 16; TEMP 36.8; O2SAT 97
[2024-06-29] MEDS: Ceftriaxone 1 GM/50 ML BAG IV (10:35)
[2024-06-29] MEDS: Senna/Docusate Sodium 1 Tablet 2 TABLET PO ×2 (10:35→21:02)
--- NOTE | 2024-06-29 12:14 | CASEMGMT ---
Discharge Planning Spoke with patient and her about responses from [facility] and [facility]. Explained that we could send referrals to SNF. Both patient and her agreed that she is back to her prior level of functioning and are comfortable with her returning home with HH. They would also like information on private duty services. A list of?HH providers including quality and resource use data and consistent with the patient's preferred geographic region, medical needs, and insurance network was created in [employer].? This list and a list of private duty agencies were provided to the patient. Both the SW and RN CM updated. Jami Royal, Discharge Planning Asst.
--- NOTE | 2024-06-29 12:45 | CON.PCM.NE_ITS ---
Assessment and Plan: Neuro Assessment/Plan ESTHER ALVAREZ is a 63 F with a past medical history of MS, being evaluated by Teleneurology for concern fo exacerbation. In regards to her SPMS history , she was diagnosed in 1991 with initial symptom onset in 1982 with left ON after childbirth. She initially had several relapses in the followed by gradual disease progression by 1999. She remained ambulatory until around 2021 when she began using a cane and has been wheelchair bound since 2022. Patient is unable to stand from a regular chair/bed independently. She has only been on mitoxantrone in the and was lost to follow up from 2003 until 2023. MRI brain from 12/17/2023 reviewed and noted to have moderate periventricular white matter disease consistent with multiple sclerosis history and isolated punctate enhancement of the left precentral gyrus that was concerning for possible acute demyelination. MRI C spine at that time showed no new enchaning lesions . As per outpatient Neurologist, plan was to repeat MRI's in 6 months. -At this point, no new lesions on repeat MRI Brain and C spine. Diagnosis: pseudo flare secondary to UTI. Plan: No further recommendations from neuro team. FP with Dr. Hightower in 6 weeks. Antibiotics as per primary team I personally attended this patient and spent a total time of 55 minutes evaluating this patient including clinical assessment, review of chart, medical history imaging, and determining appropriate treatment and workup. Carolina Talamantes MD [facility] Teleneurology department. HPI Consult Data Date of Consult: 06/29/24 HPI Narrative HPI Narrative: Mrs. Alvarez is a 63-year-old white female with a history of multiple sclerosis which was diagnosed in 1991 who presented to the emergency department at [facility] due to worsening weakness in her lower extremities and now the inability to walk. Patient reported that in January of this year she had an MRI that showed a new brain lesion. This was done here and her neurologist down at [facility] wanted to repeat MRI in 6 months time. This was ordered however the insurance denied the study. The patient reports over the last couple of weeks she has had decreased ability to ambulate with marked weakness in her lower extremities. Her states it seems like the left leg is worse than the right. Currently she is unable to ambulate and only can stand up and shuffle a few steps to her wheelchair. She has never been on any medications for her multiple sclerosis. Vital signs on presentation showed temperature 98.3, heart rate 101, respiratory 24, blood pressure is 165/87 and pulse ox was 97% on room air. CBC was unremarkable. Chemistry panel showed normal electrolytes with a BUN of 19 and a serum creatinine of 1.23 which appears to be consistent with her baseline. Glucose was 128. Her urine did appear to be consistent with infection. -MRI brain from 12/17/2023 reviewed and noted to have moderate periventricular white matter disease consistent with multiple sclerosis history and isolated punctate enhancement of the left precentral gyrus that was concerning for possible acute demyelination -Patient also have an abnormality in the cervical spine along the C2 vertebral body level with minimal cord expansion along the T1 vertebral body level down to the mid T2 vertebral body level with cord atrophy consistent with nonenhancing MS plaques. [facility] Medical History (Updated 06/28/24 @ 12:[address] Bisi Manriquez, DO) Depression Hypertension Home Medications ?Medication ?Instructions ?Recorded ?Last Taken ?Type duloxetine 60 mg capsule,delayed 60 mg PO DAILY DEPRESSION 04/12/15 Unknown History release (Cymbalta) lisinopril 10 mg tablet 10 mg PO DAILY BP 06/29/19 Unknown History dietary supplement cap PO 06/26/24 Unknown History Allergy/AdvReac Type Severity Reaction Status Date / Time morphine Allergy Chest Verified 06/29/19 10:08 tightness Family History Other Cancer Lupus Porphyria Surgical History Hx of bilateral breast reduction surgery History of total replacement of both hip joints Hx of cholecystectomy Hx of appendectomy Social History household members: spouse Smoking Status: Never smoker Vital Signs Vital Signs Vital Signs: 06/28/24 20:11 06/28/24 20:11 06/28/24 20:14 Temperature 97.9 F Temperature Source Oral Pulse Rate 95 Pulse Strength Normal (2+) Respiratory Rate 16 Respiratory Effort Normal Respiratory Depth Normal Respiratory Pattern Normal Blood Pressure 165/100 H Blood Pressure Mean 121 Blood Pressure Source Monitor Blood Pressure Position Semi-Fowlers Blood Pressure Location Right Arm Pulse Ox 95 Oxygen Delivery Method Room Air Room Air 06/28/24 23:53 06/29/24 02:18 06/29/24 05:29 Temperature 98.8 F 98.1 F Temperature Source Oral Oral Pulse Rate 88 88 Pulse Strength Respiratory Rate 16 16 Respiratory Effort Normal Respiratory Depth Normal Respiratory Pattern Normal Blood Pressure 150/93 H 148/67 H Blood Pressure Mean 112 94 Blood Pressure Source Monitor Monitor Blood Pressure Position Sitting Semi-Fowlers Blood Pressure Location Right Arm Right Arm Pulse Ox 95 98 Oxygen Delivery Method Room Air Room Air Room Air 06/29/24 08:00 06/29/24 10:00 06/29/24 10:30 Temperature 98.2 F Temperature Source Oral Pulse Rate 91 Pulse Strength Normal (2+) Respiratory Rate 16 Respiratory Effort Normal Non-Labored Respiratory Depth Respiratory Pattern Blood Pressure 160/86 H Blood Pressure Mean 110 Blood Pressure Source Monitor Blood Pressure Position Semi-Fowlers Blood Pressure Location Pulse Ox 97 Oxygen Delivery Method Room Air Room Air Weight Weight: 91.2 kg Body Mass Index (BMI) 31.4 Physical Exam Neuro Neuro Narrative: -? General: Laying comfortably in bed; in no acute distress. -? HENT: Normal oropharynx and mucosa. Normal external appearance of ears and nose. Exophthalmos. -? Neck: Supple, no pain or tenderness -? CV:? No peripheral edema. -? Pulmonary:? Normal respiratory effort. -? Ext: No cyanosis, edema, or deformity -? Skin: No rash. Normal palpation of skin.? -? Musculoskeletal: full range of motion; no joint tenderness. Normal digits and nails by inspection. No clubbing. -? NEURO: -? Mental Status: The patient was alert and oriented to time, place, and person. Normal recent/remote memory, concentration, and general fund of knowledge. -? Language: speech is fluent,.? Naming, repetition, fluency, and comprehension intact. -? Cranial Nerves: PERRL EOMI, visual jenkins full, no facial asymmetry, facial sensation intact, hearing intact, tongue midline, no evidence of atrophy or fibrillations. As performed by the nurse. Sternocleidomastoid and trapezius were equally strong. Soft palate raises equally, no uvular deviations -? Motor: bilateral lower extremity 2-3/5, other whatley intact in bilateral upper extremity. -? 3 l R L -? Detailed reflex exam as performed by the nurse/VANDANA and witnessed by the physician: l -? Tone: is normal and bulk is normal -? Sensation- Intact to light touch bilaterally -? Coordination: No dysmetria on [id number], -? Gait- wheel chair bound Lab / Micro Data 06/27/24 06:10 06/28/24 05:32 Micro: Microbiology 06/27/24 00:00 Urine, Clean Catch Urine Culture - Preliminary Gram negative siomara Gram negative siomara#2 Imaging Radiology Impression Brain MRI 06/28/24 09:30 IMPRESSION: Moderate chronic white matter changes without enhancement or restricted diffusion, compatible with nonacute demyelinating disease in a patient with history of multiple sclerosis. Electronically Signed: Marla Goldman MD at 13:30 EDT Reading Location ID and State: [facility] / [place] Tel , Service support , Active Medications Active Medications Active Medications: Current Medications Generic Name Dose Route Start Last Admin Trade Name Freq PRN Reason Stop Dose Admin Amlodipine Besylate 10 mg 06/28/24 10:00 06/29/24 09:50 Amlodipine 10 Mg Tablet PO 10 mg DAILY RODERICK Administration Protocol Carvedilol 3.125 mg 06/28/24 22:00 06/29/24 09:50 Carvedilol 3.125 Mg Tablet PO 3.125 mg BID RODERICK Administration Protocol Enoxaparin Sodium 40 mg 06/27/24 10:00 06/29/24 09:50 Enoxaparin 40 Mg/0.4 Ml Syringe SC 40 mg DAILY RODERICK Administration Ceftriaxone Sodium 1 gm in 50 mls @ 100 mls/hr 06/27/24 14:30 06/29/24 11:15 Rocephin IV Infused Q24 RODERICK Infusion Ondansetron HCl 4 mg 06/26/24 21:48 Ondansetron 4 Mg/2 Ml Vial IV Q8H PRN PRN NAUSEA/VOMITING Polyethylene Glycol 17 gm 06/28/24 22:19 Polyethylene Glycol 3350 17 Gm Packet PO DAILY PRN constipation Senna/Docusate Sodium 2 tablet 06/26/24 21:48 06/29/24 10:35 Senna/Docusate Sodium 1 Tablet PO 2 tablet BID PRN PRN Administration Constipation Sodium Chloride 10 - 40 ml 06/26/24 21:59 06/27/24 14:27 0.9% Saline Lock 10 Ml Syringe IV 10 ml UD PRN Administration SALINE FLUSH
[2024-06-29 14:28] VITALS: BP 137/88; PULSE 96; RESP 15; TEMP 36.5; O2SAT 98
--- NOTE | 2024-06-29 14:34 | PCM.PN.HOSP ---
Reason for Visit Reason for Visit: Weakness Subjective Subjective Patient does note she is feeling a little bit better today. At the time of my evaluation was awaiting neurology consultation however they have since seen her and believe that this is probably a pseudo flare related to UTIs. Functionally at home, she is fairly wheelchair dependent and help with transfers. Objective Data Objective Data Vital Signs: Vital Signs Temp Pulse Resp BP Pulse Ox O2 Del Method 97.7 F L 96 15 137/88 H 98 Room Air 06/29/24 14:28 06/29/24 14:28 06/29/24 14:28 06/29/24 14:28 06/29/24 14:06/29/24 14:28 Oxygen Delivery Method Room Air Weight: 91.2 kg Body Mass Index (BMI) 31.4 Intake & Output: Intake and Output for Last 24 Hours 06/27/24 06/28/24 06/29/24 23:59 23:59 23:59 Intake Total 850 / 850 1050 / 1050 560 / 560 Output Total 600 / 600 400 / 400 100 / 100 Balance 250 / 250 650 / 650 460 / 460 Lab / Micro Data 06/27/24 06:10 06/28/24 05:32 Micro: Microbiology 06/27/24 00:00 Urine, Clean Catch Urine Culture - Preliminary Gram negative siomara Gram negative siomara#2 Physical Exam Narrative Const alert, oriented x3, no apparent distress and well nourished Constitutional Narrative: Obese, middle-aged, white female, lying in bed, and mother at bedside, interacts appropriately however she does rely on her for some of her history as she seems to be mildly forgetful at times, does not appear toxic HEENT head/scalp atraumatic and moist oral mucous membranes HEENT Narrative: Mallampati 3, no thrush Head and Scalp: normocephalic Resp normal respiratory effort, no retractions, no use of accessory muscles and clear to auscultation bilaterally Auscultation: Negative for crackles, rhonchi or wheezes Cardio regular rate, regular rhythm, S1 normal heart sound, S2 normal heart sound, no murmurs, no rub, no gallops and no clicks GI normal to inspection, nondistended, normoactive bowel sounds, soft to palpation and non-tender Extremity no clubbing, cyanosis or edema Extremity Narrative: Pedal and radial pulses are 2+ Neuro oriented x3 Neuro Narrative: Decreased bilateral lower extremity strength Speech: speech normal Psych affect normal Psych Narrative: Eye contact is good and patient interacts appropriately Assessment & Plan Assessment/Plan (1) Weakness: (2) Elevated blood-pressure reading without diagnosis of hypertension: (3) Abnormal urinalysis: (4) UTI (urinary tract infection): PLAN: Plan Bilateral lower extremity weakness/hand tingling/inability ambulate with history of multiple sclerosis -MRI brain from 12/17/2023 reviewed and noted to have moderate periventricular white matter disease consistent with multiple sclerosis history and isolated punctate enhancement of the left precentral gyrus that was concerning for possible acute demyelination/Patient also have an abnormality in the cervical spine along the C2 vertebral body level with minimal cord expansion along the T1 vertebral body level down to the mid T2 vertebral body level with cord atrophy consistent with nonenhancing MS plaques -Brain and cervical spine MRI both show stable demyelination when compared to imaging from November -[facility] neurology consultation has been performed and believe that this is consistent with pseudo flare noting stability on MRI of cervical spine and brain -Follow-up in 6 weeks with primary neurologist at [facility] -Patient does follow with [facility] for management of her MS -PT/OT following Uncontrolled hypertension -Continue amlodipine 10 mg daily -Increase carvedilol to 12.5 mg p.o. twice daily -Goal should be less than 130/80-> closer to goal today with the up titration of amlodipine but still not at goal -Continue to monitor blood pressure Gram-negative UTI -Urine culture is pending but initial growth shows gram-negative organisms x 2 at CFU's greater than 100,000 -Identification and sensitivities are still pending -Continue ceftriaxone 1 g daily for now -Patient does have history of pyelonephritis/nephrolithiasis but no back pain at this time History of depression Was previously on Cymbalta but not currently taking History of osteoarthritis -History of bilateral hip total arthroplasty Obesity -BMI is 31.5 -Recommend weight loss -Complicates treatment, prognosis, outcomes DVT prophylaxis -Continue enoxaparin 40 mg daily CODE STATUS DNR CCA with no intubation Charges/Coding Visit Charges Inpatient E&M: 57909 Subs Hosp L2
--- NOTE | 2024-06-29 14:45 | CASEMGMT ---
Addendum entered by Mary Kurtz 06/29/24 16:05: SHELLIE MCCLENDON back into pt room, pt states she has chosen to go home with [facility]. She chooses 1. [facility] and 2. [facility]. TC to Mindy at [facility], referral made. Will await decision to accept. Original Note: SHELLIE MCCLENDON into pt room, discussed options and levels of care to pt, , mother and pt sister. Pt agreeable to discuss dc planning with all present. Pt states she wants to go home. Pt agrees and states that he can handle pt most days. Pt and family to discuss if HH is what they would like. Answered all questions by pt and family. SHELLIE MCCLENDON to check back on decision.
[2024-06-29 20:50] VITALS: BP 153/79; PULSE 97; RESP 16; TEMP 36.7; O2SAT 96
[2024-06-29] MEDS: Carvedilol 12.5 MG Tablet PO (21:02)
[2024-06-30 01:58] VITALS: BP 106/67; PULSE 89; RESP 16; TEMP 36.9; O2SAT 94
[2024-06-30 05:05] VITALS: BP 137/83; PULSE 82; RESP 16; TEMP 36.2; O2SAT 93
[2024-06-30] MEDS: 0.9% Saline Lock 10 ML Syringe IV (05:24)
[2024-06-30] MEDS: Polyethylene Glycol 3350 17 GM PACKET PO (08:33)
--- NOTE | 2024-06-30 09:30 | CASEMGMT ---
TC berlin Guillen at [facility] to check status of [facility] referral, left vm.
[2024-06-30 09:41] VITALS: BP 98/81; PULSE 89; RESP 16; TEMP 36.8; O2SAT 96
[2024-06-30] MEDS: Enoxaparin 40 MG/0.4 ML Syringe SC (10:43)
[2024-06-30] MEDS: Ciprofloxacin 500 MG Tablet PO (10:43)
[2024-06-30] MEDS: DULoxetine Hcl 60 MG Capsule PO (10:43)
[2024-06-30] MEDS: Senna/Docusate Sodium 1 Tablet 2 TABLET PO (11:27)
--- NOTE | 2024-06-30 11:28 | CASEMGMT ---
SHELLIE MCCLENDON into pt room with pt family at bedside. Pt aware that [facility] has accepted her for services but this RN DANELLE was asked to review with her financial information to confirm she wanted to proceed with referral. Pt has a deductible of $7500 and $505.91 has been met. Once deductible is met, pt will have 50% co insurance until for each visit until the oop is met of $9400, there is $6455 remaining. The cost per visit at 50% will be approx $134. Pt and are agreeable to have services. CRISTIAN Guillen at [facility] to make aware. Plan for pt to be seen tomorrow.
--- NOTE | 2024-06-30 11:47 | PCM.DC.SUM ---
Providers Date of Admission: 06/26/24 Date of Discharge: 06/30/24 Primary Care Physician: Hector Johnson MD Consultations 06/28/24 12:32 Neurology [Consult: Tele-Neurology] Routine Consulting Provider: [facility] Reason for Consult: MS EMERGENT Consult: No MD Notified: Yes Date Notified: 06/28/24 Time Notified: 14:27 Method of Notification: Answering Service Comments:: pt sees [facility] neuro for MS Nursing Unit Staff Notify [facility] of Tele-Neurology Consult: Yes Reason For Visit: WEAKNESS Diagnosis Discharge Diagnosis (1) Weakness: Status: Acute Code(s): R53.1 - Weakness (2) Elevated blood-pressure reading without diagnosis of hypertension: Status: Acute Code(s): R03.0 - Elevated blood-pressure reading, without diagnosis of hypertension (3) Abnormal urinalysis: Status: Acute Code(s): R82.90 - Unspecified abnormal findings in urine (4) UTI (urinary tract infection): Status: Acute Code(s): N39.0 - Urinary tract infection, site not specified Medications at Discharge Home Medications amlodipine 10 mg tablet 10 mg PO DAILY #30 tabs 06/30/24 carvedilol 6.25 mg tablet (Coreg) 6.25 mg PO BID #60 tabs 06/30/24 ciprofloxacin HCl 500 mg tablet 500 mg PO BID #6 tabs 06/30/24 duloxetine 60 mg capsule,delayed release 60 mg PO DAILY #30 caps 06/30/24 Hospital Course Operations None Procedures - (MRI brain/cervical spine) Summary of Care Provided Minutes Spent on Discharge: 38 Hospital Course: Mrs. Alvarez is a 63-year-old white female with a history of multiple sclerosis which was diagnosed in 1991 who presented to the emergency department at [facility] due to worsening weakness in her lower extremities and now the inability to walk. Patient reported that in January of this year she had an MRI that showed a new brain lesion. This was done here and her neurologist down at [facility] wanted to repeat MRI in 6 months time. This was ordered however the insurance denied the study. The patient reports over the last couple of weeks she has had decreased ability to ambulate with marked weakness in her lower extremities. Her states it seems like the left leg is worse than the right. Currently she is unable to ambulate and only can stand up and shuffle a few steps to her wheelchair. She has never been on any medications for her multiple sclerosis. Vital signs on presentation showed temperature 98.3, heart rate 101, respiratory 24, blood pressure is 165/87 and pulse ox was 97% on room air. CBC was unremarkable. Chemistry panel showed normal electrolytes with a BUN of 19 and a serum creatinine of 1.23 which appears to be consistent with her baseline. Glucose was 128. Her urine did appear to be consistent with infection having occult blood, nitrite, leuk esterase, greater than 100 white cells per high-power field and 4+ bacteria. She was admitted to the medical floor at the recommendation of [facility] in the emergency department to obtain an MRI with instructions to consult if there are any abnormalities noted on the imaging. MRI of the cervical spine and brain were performed. Both show stable lesions when compared to the imaging from November 2023. Neurology evaluated the patient and felt that her symptoms were most consistent with a pseudo flare related to her urinary tract infection. As noted her UA was suggestive of infection and a culture was sent. She actually grew 2 organisms on her culture with 1 being E. coli and the other being Morganella. She was treated for urinary tract infection initially with ceftriaxone hospitalized and transition to ciprofloxacin for another 6 days at the time of discharge. Her blood pressure was also consistently elevated early in her hospitalization so we did add amlodipine which we uptitrated to 10 mg daily and she was still elevated so Coreg 6.25 mg was initiated with improved control and she was discharged with prescriptions for both of these medications. Her daughter also felt that she was quite depressed so we did restart her Cymbalta which she had been on previously but stopped independently of anybody instructing her to do so as she was just forgetful and not taking them regularly. She was evaluated by physical and Occupational Therapy and was recommended to have ongoing therapy at the time of discharge. Initially we tried to get her into acute rehab however she was at her baseline functional level except for assistance with transfers and both rehab and SNF's felt she was an appropriate. This was discussed further with patient and family by counseling case manager and they elected to go home with home health care at the time of discharge. Patient was discharged home in stable condition in 07/20/2024 with home health care. Prescriptions for amlodipine, Coreg, Cymbalta, and Cipro were sent to her local pharmacy at the time of discharge. She has follow-up with neurology in 6 weeks and with her primary care physician within the next 1 to 2 weeks based on availability. Discharge diagnoses: MS pseudo flare Gram-negative urinary tract infection Hypertension Depression Osteoarthritis Obesity Physical Exam Narrative Const alert, oriented x3, no apparent distress and well nourished Constitutional Narrative: Obese, middle-aged, white female, lying in bed, and mother at bedside, interacts appropriately however she does rely on her for some of her history as she seems to be mildly forgetful at times, does not appear toxic General Appearance: cooperative, comfortable, well kempt and well developed Orientation / Consciousness: awake, oriented to person, oriented to place and oriented to time Nutritional Appearance: obese HEENT normocephalic, head/scalp atraumatic, moist oral mucous membranes and oropharynx normal HEENT Narrative: Mallampati 3, no thrush Eyes PERRL, EOMs intact bilaterally and conjunctivae normal Eyes Narrative: No scleral icterus Neck no lymphadenopathy and supple Neck Narrative: Neck is short and thick, trachea midline, no thyroid enlargement Resp normal respiratory effort, no retractions, no use of accessory muscles and clear to auscultation bilaterally Auscultation: Negative for crackles, rhonchi or wheezes Cardio regular rate, regular rhythm, S1 normal heart sound, S2 normal heart sound, no murmurs, no rub, no gallops and no clicks GI normal to inspection, nondistended, normoactive bowel sounds, soft to palpation and non-tender Extremity no clubbing, cyanosis or edema Extremity Narrative: Pedal and radial pulses are 2+ Skin no rashes or lesions noted, no wounds, skin turgor normal, no jaundice, no petechiae and no mottling Neuro oriented x3 Neuro Narrative: Decreased bilateral lower extremity strength, hyperreflexia left greater than right lower extremity, 6 beat clonus left lower extremity to be right lower extremity Speech: speech normal Psych affect normal Psych Narrative: Eye contact is good and patient interacts appropriately Weight / BMI Weight Weight: 91.2 kg Body Mass Index (BMI) 31.4 ABG / Lab / Microbiology Data 06/27/24 06:10 06/28/24 05:32 Microbiology: Microbiology 06/27/24 00:00 Urine, Clean Catch Urine Culture - Final Escherichia coli Morganella morganii sp morgani D/C Instructions Discharge Diet: Low fat / Low cholesterol Meaningful Use Info Meaningful Use Meaningful Use Diagnoses (Choose all that apply): None applicable Ischemic Stroke Statin Dosing Therapy Reference: STATIN DOSE THERAPY REFERENCE: * Patients > 75 years receive moderate or high dose statin therapy. * Patients 75 years or YOUNGER should receive HIGH intensity statin dose unless contraindicated. You will be required to document reason for non-treatment if statin daily dose does not meet guidelines. HIGH DOSE STATIN THERAPY DAILY Atorvastatin > than or = to 40 mg Rosuvastatin > than or = to 20 mg Amlodipine + Atorvastatin > than or = to 2.5/40 mg Ezetimibe + Simvastatin 10/80 mg Simvastatin 80mg Discharge Plan Admission Admit Date/Time: 06/26/24 19:50 Primary Reason for Your Visit: Difficulty walking/weakness Attending Provider: Bisi Manriquez Primary Care Provider: Hector Johnson Consulting Providers: Josr Larose; Lj Rosas; Rebecca Demarco; Hnana Ramon; Jyotsna Abad; Jessica Addison; Henok Mcgovern; Pam Neumann; Jeremy De La Torre; Jose Medina; Sang Terrell; Mony Philippe; Jed Parisi; Carolina Talamantes; Morgan Feliciano; Mandy Hair; Basim Andrade; Nely Quezada; John Polanco; Maribell Manriquez; Nelida Fernandez Instructions Additional Instructions / Restrictions: 1. Please call your neurologist office and schedule an appointment to be seen within the next 6 weeks per neurology's recommendations here while you are in the hospital. 2. Please complete your antibiotics as scheduled Discharge Orders/Prescriptions Prescriptions: New amlodipine 10 mg Tablet 10 mg PO DAILY Qty: 30 0RF ciprofloxacin HCl 500 mg Tablet 500 mg PO BID Qty: 6 0RF duloxetine 60 mg Capsule,Delayed Release(Dr/Ec) 60 mg PO DAILY Qty: 30 0RF carvedilol [Coreg] 6.25 mg tablet 6.25 mg PO BID Qty: 60 0RF Rx Instructions: must administer with a meal/food Discontinued duloxetine [Cymbalta] 60 MG capsule,delayed release(DR/EC) 60 mg PO DAILY Patient Comments: depression lisinopril 10 MG tablet 10 mg PO DAILY dietary supplement Capsule PO Referrals / Follow Up: Hector Johnson MD [Primary Care Provider] - Within 1 Week Disposition Disposition (needs filled in before D/C Order can be placed): Home Health Service Charges/Coding Visit Charges Inpatient E&M: 60563 Disch Hosp >30min
[2024-06-30 14:50] VITALS: BP 144/84; PULSE 89; RESP 18; TEMP 36.5; O2SAT 95
== END 2024-06-30 14:55 | disposition home health service (06) | DRG 59 ==
LOC: ED 19:55 → MS3 20:53
PROVIDERS: Admitting Provider Hospitalist; Emergency Provider Emergency Medicine; PCP Family Medicine; Visit Provider Internal Medicine
DX: G35 Multiple sclerosis (principal); N39.0 Urinary tract infection, site not specified; E66.9 Obesity, unspecified; F32.A Depression, unspecified; I10 Essential (primary) hypertension; M19.90 Unspecified osteoarthritis, unspecified site; Z66 Do not resuscitate; Z99.3 Dependence on wheelchair; Z79.899 Other long term (current) drug therapy; Z91.81 History of falling; Z68.31 Body mass index [BMI] 31.0-31.9, adult; B96.20 Unspecified Escherichia coli [E. coli] as the cause of diseases classified elsewhere; B96.89 Other specified bacterial agents as the cause of diseases classified elsewhere
CPT/HCPCS: 36415; 70553; 72141; 80048; 81001; 85025; 87077; 87086; 87088; 87186; 97161; 97167; 97530; 97535; 97802; 99284; A9575; A4216

== ENCOUNTER 2025-03-29 21:56 | Emergency (ER) | payer OTHER, SELFPAY ==
[2025-03-29 21:57] VITALS: BP 152/99; PULSE 108; RESP 18; TEMP 36.9; O2SAT 97; O2SAT 98; BMI 30.8
--- NOTE | 2025-03-29 22:38 | EKG12_ITS ---
Test Reason : CP Blood Pressure : */* mmHG Vent. Rate : 108 BPM Atrial Rate : 108 BPM P-R Int : 170 ms QRS Dur : 82 ms QT Int : 356 ms P-R-T Axes : 60 -32 53 degrees QTcB Int : 477 ms Sinus tachycardia Left axis deviation Low voltage QRS Inferior infarct , age undetermined Possible Anterolateral infarct , age undetermined Abnormal ECG Confirmed by PEPE GREEN, CHRISTEN ([id number]), scientific publications editor RAISA JUAREZ ([id number]) on 04/03/2025 6:23:34 AM Referred By: WING Confirmed By: CHRISTEN CANTU MD
[2025-03-29 22:57] VITALS: BP 145/87; PULSE 91; RESP 18; O2SAT 97
--- OUTSIDE RECORDS SUMMARY | 2025-03-29 22:59 | XMS RPT_ITS | CCD ---
Author Organization [facility] Care Team Providers Care Take Away Man Name Role Phone Unavailable Primary Care Provider UnavailCRYSTAL Mc Attending Unavailable RACHELL HIGHTOWER Referring Unavailable RACHELL HIGHTOWER Attending Unavailable SELF, SELF Referring Unavailable RACHELL HIGHTOWER Attending Unavailable HA SINGH Referring Unavailable CRYSTAL MART Attending Unavailable [facility] PROVIDER, [facility] Referring Unavailable Hector Johnson Primary Care Unavailable Lachelle, Josr Consulting Unavailable Bisi Manriquez Attending Unavailable Ismaelg, Josr Admitting Unavailable Lj Rosas Consulting Unavailable Adeli, Amir Consulting Unavailable Hinduja, Hanna Consulting Unavailable Pollo, Jyotsna Consulting Unavailable Cyn, Jessica Consulting Unavailable Shaniqua, Henok Consulting Unavailable Nel, Pam Consulting Unavailable Bittar, Jeremy Consulting Unavailable Jose Medina Consulting Unavailable Sang Terrell Consulting Unavailable Mony Philippe Consulting Unavailable Jed Parisi Consulting Unavailable Albin, Carolina Consulting Unavailable Ridgriffin, Mohamed Consulting Unavailable Zaghlouleh, Mhd Dov Consulting UnavailBasim Ochoa Consulting Unavailable Nely Quezada Consulting Unavailable John Polanco Consulting Unavailable Maribell Manriquez Consulting Unavailable Nelida Fernandez Consulting Unavailable Beatriz Johnsonon Primary Care Unavailable Agyegabrielag, Josr Consulting Unavailable Bisi Manriquez Attending Unavailable Agshaung, Josr Admitting Unavailable Lj Rosas Consulting Unavailable Adeli, Amir Consulting Unavailable Hinduja, Hanna Consulting Unavailable Pollo, Jyotsna Consulting Unavailable Zha, Jessica Consulting Unavailable Shaniqua, Henok Consulting Unavailable Nel, Pam Consulting Unavailable Bittar, Jeremy Consulting Unavailable Jose Medina Consulting Unavailable Sang eTrrell Consulting Unavailable Mony Philippe Consulting Unavailable Jed Parisi Consulting Unavailable Albin, Carolina Consulting Unavailable Ridha, Mohamed Consulting Unavailable Zaghlouleh, Mhd Dov Consulting UnavailBasim Ochoa Consulting Unavailable Nely Quezada Consulting Unavailable John Polanco Consulting Unavailable Maribell Manriquez Consulting Unavailable Nelida Fernandez Consulting Unavailable Bisi Manriquez Consulting Unavailable Alex, Chalon Primary Care Unavailable AgJosr mcwilliams Consulting Unavailable Lachelle, Josr Attending Unavailable Agpoppy, Josr Admitting Unavailable Alex, Chalon Primary Care Unavailable Alex, Chalon Attending Unavailable Alex, Chalon Referring Unavailable Alex, Chalon Primary Care Unavailable CORAL, SI Referring Unavailable CORAL, SI Attending Unavailable Alex, Chalon Primary Care Unavailable Alex, Chalon Attending Unavailable Alex, Chalon Referring Unavailable Allergies Allergy Classification Reported Allergen(s) Allergy Type Date of Onset Reaction(s) Facility (8 sources) Morphine Drug Allergy 9 Chest tightness [facility] (1 source) Morphine Drug Allergy 9 [facility] Repository Medications Current Medications Medication Drug Class(es) Dates Sig (Normalized) Sig (Original) acetaminophen 500 mg oral tablet (4 sources) Start: 07-14-2019 take 3000 mg by mouth every twenty-four hours Acetaminophen Active 1000 MG PO EVERY 8 HOURS 100 July 14, 2019 12:00am Do not take more than 3000 mg Tylenol in 24-hour. aspirin 81 mg chewable tablet (5 sources) Platelet Aggregation Inhibitor, Nonsteroidal Anti-inflammatory Drug Start: 07-14-2019 take 81 mg by mouth twice daily at mealtime Aspirin Active 81 MG PO TWICE DAILY WITH MEALS 60 July 14, 2019 12:00am Take 81 mg aspirin twice daily with food for 4 weeks postoperatively for DVT prophylaxis Start: 04-18-2004 ASPIRIN 325MG TABLET 4 tabs for headache 0 04/18/2004 Active Comment on above: 4 tabs for headache baclofen 10 mg oral tablet (4 sources) gamma-Aminobutyric Acid-ergic Agonist Start: 11-17-19 baclofen 10 MG tablet 11/17/2023 Active docusate sodium 50 mg / sennosides, half-way 8.6 mg oral tablet (4 sources) Start: 07-14-20 Sennosides-Docusate Sodium Active 2 TABLET PO TWICE A DAY July 14, 2019 12:00am Take until first bowel movement, then as needed DULoxetine 60 mg delayed release oral capsule (4 sources) Serotonin and Norepinephrine Reuptake Inhibitor Start: 04-12-20 15 take 1 capsule by mouth once daily Duloxetine (Cymbalta) 60 MG capsule,delayed release(DR/EC) Active 60 MG PO DAILY April 12, 2015 12:00am famotidine 20 mg oral tablet (4 sources) Histamine-2 Receptor Antagonist Start: 07-14-20 take 20 mg by mouth once daily Famotidine Active 20 MG PO DAILY July 14, 2019 12:00am lisinopril 10 mg oral tablet (4 sources) Angiotensin Converting Enzyme Inhibitor Start: 06-29-20 take 10 mg by mouth once daily Lisinopril Active 10 MG PO DAILY June 29, 2019 12:00am meloxicam 7.5 mg oral tablet (4 sources) Nonsteroidal Anti-inflammatory Drug Start: 07-14-20 take 7.5 mg by mouth twice daily Meloxicam Active 7.5 MG PO TWICE A DAY 60 July 14, 2019 12:00am Do not take any other nonsteroidal anti-inflammatories while on Mobic Completed/Discontinued Medications Medication Drug Class(es) Dates Sig (Normalized) Sig (Original) celecoxib 200 mg oral capsule (4 sources) Nonsteroidal Anti-inflammatory Drug Start: 04-23-2015 End: 04-25-2015 take 1 capsule by mouth twice daily as needed Celecoxib (Celebrex) 200 MG capsule Discontinued 200 MG PO TWICE DAILY NEEDED April 23, 2015 12:00am April 25, 2015 12:20pm ibuprofen 200 mg oral tablet (9 sources) Nonsteroidal Anti-inflammatory Drug Start: 06-29-2019 End: 07-14-2019 take 800 mg by mouth once daily Ibuprofen Discontinued 800 MG PO DAILY June 29, 2019 12:00am July 14, 2019 11:12am Start: 04-12-2015 End: 04-25-2015 Ibuprofen (Motrin Ib) 200 MG tablet Discontinued 600 MG PO EVERY 6 HOURS NEEDED April 12, 2015 12:00am April 25, 2015 12:20pm Start: 04-18-2004 MOTRIN IB 200M G TABLET prn for back ache 0 04/18/2004 Active Comment on above: prn for back ache oxyCODONE hydrochloride 5 mg oral tablet (4 sources) Opioid Agonist Start: 9 End: 9 take 5 mg by mouth every four hours as needed Oxycodone Discontinued 5 MG PO EVERY 4 HOURS NEEDED 30 5 July 14, 2019 July 25, 2019 12:08am 24 hr tolterodine tartrate 2 mg extended release oral capsule (1 source) Cholinergic Muscarinic Antagonist Start: 4 DETROL LA 2MG CAPSULE SA 1 tab qd 30 5 04/18/2004 Active Comment on above: 1 tab qd Problems Active Problems Problem Classification Problem Date Documented Da te Episodic/Chronic Essential hypertension (2 sources) Essential (primary) hypertension; Translations: [Essential (primary) hypertension] Onset: 06-30-2024 Chronic Genitourinary symptoms and ill-defined conditions (6 sources) H/O: kidney infection; Translations: [Personal history of other diseases of urinary system] Onset: 06-30-2024 10-11-2013 Episodic Malaise and fatigue (2 sources) Weakness; Translations: [Weakness] Onset: 06-30-2024 Episodic Multiple sclerosis (14 sources) H/O: [employer] disorder; Translations: [Multiple sclerosis] Onset: 06-05-2003 10-11-2013 Chronic Other circulatory disease (2 sources) Elevated blood-pressure reading, without diagnosis of hypertension; Translations: [Elevated blood-pressure reading, without diagnosis of hypertension] Onset: 06-30-2024 Episodic Other nervous system disorders (2 sources) Difficulty in walking, not elsewhere classified; Translations: [Difficulty in walking, not elsewhere classified] Onset: 06-30-2024 Chronic Other nervous system disorders (2 sources) Personal history of other diseases of the nervous system and sense organs; Translations: [Personal history of other diseases of the nervous system and sense organs] Onset: 06-30-2024 Episodic Other nutritional; endocrine; and metabolic disorders (4 sources) Obese class I; Translations: [Obesity, unspecified] Onset: 11-27-2023 11-27-2023 Chronic Residual codes; unclassified (4 sources) History of headache; Translations: [Personal history of other specified conditions] 10-11-2013 Episodic Residual codes; unclassified (2 sources) Amnesia; Translations: [Other amnesia] 12-28-2023 Episodic Superficial injury; contusion (4 sources) Contusion of chest; Translations: [Contusion of unspecified front wall of thorax, initial encounter] 10-30-2021 Episodic Urinary tract infections (2 sources) Urinary tract infection, site not specified; Translations: [Urinary tract infection, site not specified] Onset: 06-30-2024 Episodic Past or Other Problems Problem Classification Problem Date Documented Da te Episodic/Chronic Administrative/social admission (1 source) Unemployed; Translations: [Unemployment, unspecified] Onset: 06-05-2003 02-19-2004 Episodic Other nervous system disorders (1 source) Symbolic dysfunction; Translations: [Unspecified symbolic dysfunctions] Onset: 09-15-2003 02-19-2004 Episodic Unclassified (4 sources) Onset: 11-27-2023 Resolved: 01-08-2024 11-27-2023 Results Test Name Value Interpretation Reference Range Facil ity Urine Cultureon 06-30-2024 URC Escherichia coli [place] Count >100,000 Morganella morganii sp morgani [place] Count >100,000 Escherichia coli: REACTION Ampicillin Islt ROBEL <=2 S Ampicillin+Sulbac Islt ROBEL <=2 S ceFAZolin Islt ROBEL <=4 S Cefepime Islt ROBEL <=0.12 S cefTRIAXone Islt ROBEL <=0.25 S Ciprofloxacin Islt ROBEL <=0.25 S Ertapenem Islt ROBEL <=0.12 S B-Lactamase Extended Susc Islt NEG Gentamicin Islt ROBEL <=1 S Imipenem Islt ROBEL <=0.25 S levoFLOXacin Islt ROBEL <=0.12 S Nitrofurantoin Islt ROBEL <=16 S Pip+Tazo Islt ROBEL <=4 S Tobramycin Islt ROBEL <=1 S TMP SMX Islt ROBEL <=20 S Morganella morganii sp morgani: REACTION Ampicillin Islt ROBEL >=32 R Ampicillin+Sulbac Islt ROBEL 16 I ceFAZolin Islt ROBEL >=64 R Ciprofloxacin Islt ROBEL <=0.25 S Ertapenem Islt ROBEL <=0.12 S Gentamicin Islt ROBEL <=1 S Imipenem Islt ROBEL 2 S levoFLOXacin Islt ROBEL <=0.12 S Nitrofurantoin Islt ROBEL R Pip+Tazo Islt ROBEL <=4 S Tobramycin Islt ROBEL <=1 S TMP SMX Islt ROBEL <=20 S Normal [facility] Comment on above: Performed By: #### M 100.7968 ####[facility] [id number] [place], [address] MR/CON.PCM.NEon 06-29-2024 MR/CON.PCM.NE [facility] System Medical Records Department [address] [place] [address] Consultation - Neurology 06/29/24 1245 MR#: [id number] Acct: [id number] Name: DARIA ALVAREZ Rep #: [id number] : 1960 63 From: Carolina Talamantes MD PCP: Dr. Hector Johnson MD Status:ADM IN Location: MS3 [id number] Assessment and Plan: Neuro Assessment/Plan DARIA ALVAREZ is a 63 F with a past medical history of MS, being evaluated by Teleneurology for concern fo exacerbation. In regards to her SPMS history , she was diagnosed in 1991 with initial symptom onset in 1982 with left ON after childbirth. She initially had several relapses in the followed by gradual disease progression by 1999. She remained ambulatory until around 2021 when she began using a cane and has been wheelchair bound since 2022. Patient is unable to stand from a regular chair/bed independently. She has only been on mitoxantrone in the and was lost to follow up from 2003 until 2023. MRI brain from 12/17/2023 reviewed and noted to have moderate periventricular white matter disease consistent with multiple sclerosis history and isolated punctate enhancement of the left precentral gyrus that was concerning for possible acute demyelination. MRI C spine at that time showed no new enchaning lesions . As per outpatient Neurologist, plan was to repeat MRI's in 6 months. -At this point, no new lesions on repeat MRI Brain and C spine. Diagnosis: pseudo flare secondary to UTI. Plan: No further recommendations from neuro team. FP with Dr. Hightower in 6 weeks. Antibiotics as per primary team I personally attended this patient and spent a total time of 55 minutes evaluating this patient including clinical assessment, review of chart, medical history imaging, and determining appropriate treatment and workup. Carolina Talamantes MD [facility] Teleneurology department. HPI Consult Data Date of Consult: 06/29/24 HPI Narrative HPI Narrative: Mrs. Alvarez is a 63-year-old white female with a history of multiple sclerosis which was diagnosed in 1991 who presented to the emergency department at [facility] due to worsening weakness in her lower extremities and now the inability to walk. Patient reported that in January of this year she had an MRI that showed a new brain lesion. This was done here and her neurologist down at [facility] wanted to repeat MRI in 6 months time. This was ordered however the insurance denied the study. The patient reports over the last couple of weeks she has had decreased ability to ambulate with marked weakness in her lower extremities. Her states it seems like the left leg is worse than the right. Currently she is unable to ambulate and only can stand up and shuffle a few steps to her wheelchair. She has never been on any medications for her multiple sclerosis. Vital signs on presentation showed temperature 98.3, heart rate 101, respiratory 24, blood pressure is 165/87 and pulse ox was 97% on room air. CBC was unremarkable. Chemistry panel showed normal electrolytes with a BUN of 19 and a serum creatinine of 1.23 which appears to be consistent with her baseline. Glucose was 128. Her urine did appear to be consistent with infection. -MRI brain from 12/17/2023 reviewed and noted to have moderate periventricular white matter disease consistent with multiple sclerosis history and isolated punctate enhancement of the left precentral gyrus that was concerning for possible acute demyelination -Patient also have an abnormality in the cervical spine along the C2 vertebral body level with minimal cord expansion along the T1 vertebral body level down to the mid T2 vertebral body level with cord atrophy consistent with nonenhancing MS plaques. [facility] Medical History (Updated 06/28/24 @ 12:[address] Bisi Manriquez, DO) Depression Hypertension Home Medications ???Medication ???Instructions ???Recorded ???Last Taken ???Type duloxetine 60 mg capsule,delayed 60 mg PO DAILY DEPRESSION 04/12/15 Unknown History release (Cymbalta) lisinopril 10 mg tablet 10 mg PO DAILY BP 06/29/19 Unknown History dietary supplement cap PO 06/26/24 Unknown History Allergy/AdvReac Type Severity Reaction Status Date / Time morphine Allergy Chest Verified 06/29/19 10:08 tightness Family History Other Cancer Lupus Porphyria Surgical History Hx of bilateral breast reduction surgery History of total replacement of both hip joints Hx of cholecystectomy Hx of appendectomy Social History household members: spouse Smoking Status: Never smoker Vital Signs Vital Signs Vital Signs: 06/28/24 20:11 06/28/24 20:11 06/28/24 20:14 Temp (more content not included)... Normal [facility] Basic Metabolic Profile (BMP )on 06-28-2024 BUN/CRE 16.5 RATIO Normal 10-20 [facility] Comment on above: Performed By: #### L 500.2500 #### [facility] Laboratory [address] [place], [address] CA,Total 9.2 mg/dL Normal 8.5-10.1 [facility] Comment on above: Performed By: #### L 500.2500 #### [facility] [address] [place], [address] Chloride [Moles/Vol] 109 mmol/L High 98-107 [facility] Comment on above: Performed By: #### L 500.2500 #### [facility] [address] [place], [address] CO2 [Moles/Vol] 26.0 mmol/L Normal 21.0-32.0 [facility] Comment on above: Performed By: #### L 500.2500 #### [facility] [address] [place], [address] Creatinine [Mass/Vol] 1.09 mg/dL High 0.55-1.02 [facility] Comment on above: Result Comment: The validity of the calculated GFR GFRAA in patients over 70 years has not been determined. Clinical correlation is essential. Performed By: #### L 500.2500 #### [facility] [address] [place], [address] ECRCL 61.25 ml/min Normal [facility] Comment on above: Performed By: #### L 500.2500 #### [facility] [address] [place], [address] EST GFR - AA 65 mL/min Normal >60 [facility] Comment on above: Result Comment: Afri can Malawian GFR Calc Performed By: #### L 500.2500 #### [facility] [address] [place], [address] GAP 8 Normal 5-15 [facility] Comment on above: Performed By: #### L 500.2500 #### [facility] [address] [place], [address] GFR/1.73 sq M.predicted among non-blacks MDRD (S/P/Bld) [Vol rate/Area] 54 mL/min/{1.73_m2} Low >60 [facility] Comment on above: Result Comment: Non- GFR Calc Performed By: #### L 500.2500 #### [facility] [address] [place], [address] Glucose [Mass/Vol] 112 mg/dL High 74-106 [facility] Comment on above: Result Comment: Fast ing Glucose result from 100 to 125 mg/dL suggests IMPAIRED HOMEOSTASIS per A.D.A. criteria. Performed By: #### L 500.2500 #### [facility] [address] [place], [address] Potassium [Moles/Vol] 3.9 mmol/L Normal 3.5-5.1 [facility] Comment on above: Performed By: #### L 500.2500 #### [facility] [address] [place], [address] Sodium [Moles/Vol] 143 mmol/L Normal 136-145 [facility] Comment on above: Performed By: #### L 500.2500 #### [facility] [address] [place], [address] Urea nitrogen [Mass/Vol] 18 mg/dL Normal 7-18 [facility] Comment on above: Performed By: #### L 500.2500 #### [facility] [address] [place], [address] Brain W/WO Contraston 2023 Brain W/WO Contrast [facility] Imaging Services [address] [place] [address] Brain W/WO Contrast MR#: [id number] Acct: [id number] Name: DARIA ALVAREZ Rep #: [id number] : 1960 F 63 From: Marla gonzales MD PCP: Dr. Hector Johnson MD Status: ADM IN Study: Brain W/WO Contrast Date of Exam: 06/28/24 Exam# [id number] Ordering Dr: Josr Larose MD [id number] HISTORY: Flare of multiple sclerosis. TECHNIQUE: Multiplanar and multisequence MR images of the brain were obtained before and after the intravenous administration of 19 cc Clariscan. 347 images. COMPARISON: 12/17/2023. FINDINGS: BRAIN PARENCHYMA: Moderate zones of increased T2 FLAIR signal in the bilateral cerebral white matter with involvement of the callososeptal interface, roel, and left middle cerebellar peduncle again seen. No enhancing lesion identified. No abnormal focus of restricted diffusion. No acute intracranial hemorrhage identified. CSF SPACES: Chronic mild volume loss. No significant midline shift or other mass effect.No extra-axial fluid collection. VASCULAR SYSTEM: Major intracranial flow voids are maintained. PARANASAL SINUSES AND MASTOID AIR CELLS: No significant air fluid levels. ORBITS: Bilateral lens resections. Symmetric appearance of the optic nerves without signal abnormality or enhancing lesion. MRI/Brain W/WO Contrast IMPRESSION: Moderate chronic white matter changes without enhancement or restricted diffusion, compatible with nonacute demyelinating disease in a patient with history of multiple sclerosis. Electronically Signed: Marla Goldman MD at 13:30 EDT , CC: Dr. Hector Johnson MD; Dr. Josr Larose MD [employer]: Signed Normal [facility] Spine Cervical (Routine)on 0 06-28-2024 Spine Cervical (Routine) [facility] Imaging Services [address] [place] [address] Spine Cervical (Routine) MR#: [id number] Acct: [id number] Name: DARIA ALVAREZ Rep #: [id number] : 1960 F 63 From: Marla gonzales MD PCP: Dr. Hector Johnson MD Status: ADM IN Study: Spine Cervical (Routine) Date of Exam: Exam# [id number] Ordering Dr: Bisi Manriquez DO [id number] HISTORY: MS. TECHNIQUE: Multiplanar and multisequence MR images of the cervical spine were obtained without contrast. 276 images. COMPARISON: 12/17/2023. FINDINGS: VERTEBRAE: Vertebral body heights maintained. Chronic C7 vertebral body hemangioma. VERTEBRAL ALIGNMENT: Chronic 2 mm retrolisthesis of C3-4. SPINAL CORD: Multiple zones of increased T2 signal from the cervicomedullary junction to the visualized upper thoracic spine with the most prominent mildly expansile lesion at C2-3, similar to prior. SOFT TISSUES: No prevertebral fluid collection. INTERVERTEBRAL DISCS: C2-3: Minimal disc bulge and degenerative changes of the posterior elements without significant central canal stenosis or foraminal narrowing. C3-4: Mild left paracentral disc protrusion abutting the left traversing nerve root with uncovertebral and facet arthropathy resulting in mild-moderate central canal stenosis and bilateral foraminal narrowing. C4-5, C5-6: Mild disc bulges with uncovertebral and facet arthropathy resulting in mild central canal stenosis and bilateral foraminal narrowing. C6-7: Mild posterior disc protrusion resulting in minimal narrowing of the thecal sac. No significant foraminal narrowing. C7-T1: No significant posterior disc protrusion, central canal stenosis, or foraminal narrowing MRI/Spine Cervical (Routine) IMPRESSION: No significant interval change in multiple zones of increased T2 signal in the cervical cord, compatible with the history of multiple sclerosis. Multilevel degenerative disc disease as above. Electronically Signed: Marla Goldman MD at 11:57 EDT , CC: Dr. Hector Johnson MD; Dr. Bisi Manriquez DO [employer]: Signed Normal [facility] Basic Metabolic Profile (BMP )on 06-27-2024 BUN/CRE 18.3 RATIO Normal 10-20 [facility] Comment on above: Performed By: #### L 500.2500, L100.0100 ####[facility] [address] [place], [address] CA,Total 9.1 mg/dL Normal 8.5-10.1 [facility] Comment on above: Performed By: #### L 500.2500, L100.0100 ####[facility] [address] [place], [address] Chloride [Moles/Vol] 113 mmol/L High 98-107 [facility] Comment on above: Performed By: #### L 500.2500, L100.0100 ####[facility] [address] [place], [address] CO2 [Moles/Vol] 25.0 mmol/L Normal 21.0-32.0 [facility] Comment on above: Performed By: #### L 500.2500, L100.0100 ####[facility] [address] [place], [address] Creatinine [Mass/Vol] 1.09 mg/dL High 0.55-1.02 [facility] Comment on above: Result Comment: The validity of the calculated GFR GFRAA in patients over 70 years has not been determined. Clinical correlation is essential. Performed By: #### L 500.2500, L100.0100 ####[facility] [address] [place], [address] ECRCL 61.25 ml/min Normal [facility] Comment on above: Performed By: #### L 500.2500, L100.0100 ####[facility] [address] [place], [address] EST GFR - AA 65 mL/min Normal >60 [facility] Comment on above: Result Comment: Afri can Malawian GFR Calc Performed By: #### L 500.2500, L100.0100 ####[facility] [address] [place], [address] GAP 4 Low 5-15 [facility] Comment on above: Performed By: #### L 500.2500, L100.0100 ####[facility] [address] [place], [address] GFR/1.73 sq M.predicted among non-blacks MDRD (S/P/Bld) [Vol rate/Area] 54 mL/min/{1.73_m2} Low >60 [facility] Comment on above: Result Comment: Non- GFR Calc Performed By: #### L 500.2500, L100.0100 ####[facility] [address] [place], [address] Glucose [Mass/Vol] 119 mg/dL High 74-106 [facility] Comment on above: Result Comment: Fast ing Glucose result from 100 to 125 mg/dL suggests IMPAIRED HOMEOSTASIS per A.D.A. criteria. Performed By: #### L 500.2500, L100.0100 ####[facility] [facility] [address] [place], [address] Potassium [Moles/Vol] 3.9 mmol/L Normal 3.5-5.1 [facility] Comment on above: Performed By: #### L 500.2500, L100.0100 ####[facility] [address] [place], [address] Sodium [Moles/Vol] 142 mmol/L Normal 136-145 [facility] Comment on above: Performed By: #### L 500.2500, L100.0100 ####[facility] [address] [place], [address] Urea nitrogen [Mass/Vol] 20 mg/dL High 7-18 [facility] Comment on above: Performed By: #### L 500.2500, L100.0100 ####[facility] [address] [place], [address] CBC W/Diff, Automatedon 09-0 2-2023 Absolute Lymph 1.54 X10 3/uL Normal 0.83-4.51 [facility] Comment on above: Performed By: #### L 500.2500, L100.0100 ####[facility] [address] [place], [address] Absolute Neut 4.3 X10 3/uL Normal 2.0-7.7 [facility] Comment on above: Performed By: #### L 500.2500, L100.0100 ####[facility] [address] [place], [address] Basophils/100 WBC (Bld) 0.9 % Normal 0-1 [facility] Comment on above: Performed By: #### L 500.2500, L100.0100 ####[facility] [address] [place], [address] Eosinophils/100 WBC (Bld) 2.6 % Normal 0-5 [facility] Comment on above: Performed By: #### L 500.2500, L100.0100 ####[facility] [address] [place], [address] Erythrocyte distribution width (RBC) [Ratio] 13.2 % Normal 11.6-14.6 [facility] Comment on above: Performed By: #### L 500.2500, L100.0100 ####[facility] [address] [place], [address] Hematocrit (Bld) [Volume fraction] 41.6 % Normal 37-47 [facility] Comment on above: Performed By: #### L 500.2500, L100.0100 ####[facility] [address] [place], [address] Hemoglobin (Bld) [Mass/Vol] 13.7 g/dL Normal 12.0-15.0 [facility] Comment on above: Performed By: #### L 500.2500, L100.0100 ####[facility] [address] [place], [address] IG% 0.600 Normal 0.0-0.9 [facility] Comment on above: Result Comment: IG% - Immature Granulocytes (promyelocytes, myelocytes and metamyelocytes) > 1% indicates that a LEFT SHIFT is Present. Performed By: #### L 500.2500, L100.0100 ####[facility] [address] [place], [address] Lymphocytes/100 WBC (Bld) 23.3 % Normal 19-41 [facility] Comment on above: Performed By: #### L 500.2500, L100.0100 ####[facility] [address] [place], [address] MCH (RBC) [Entitic mass] 29.8 pg Normal 27.0-32.0 [facility] Comment on above: Performed By: #### L 500.2500, L100.0100 ####[facility] [address] [place], [address] MCHC (RBC) [Mass/Vol] 32.9 g/dL Normal 32-36 [facility] Comment on above: Performed By: #### L 500.2500, L100.0100 ####[facility] [address] [place], [address] MCV (RBC) [Entitic vol] 90.6 fL Normal 81-99 [facility] Comment on above: Performed By: #### L 500.2500, L100.0100 ####[facility] [address] [place], [address] Monocytes/100 WBC (Bld) 7.7 % Normal 0-10 [facility] Comment on above: Performed By: #### L 500.2500, L100.0100 ####[facility] [address] [place], [address] Neutrophils/100 WBC (Bld) 64.9 % Normal 47-70 [facility] Comment on above: Performed By: #### L 500.2500, L100.0100 ####[facility] [address] [place], [address] Nucleated RBC (Bld) [#/Vol] 0 10*3/uL Normal 0-5 [facility] Comment on above: Performed By: #### L 500.2500, L100.0100 ####[facility] [address] [place], [address] Platelet mean volume (Bld) [Entitic vol] 9.1 fL Normal 6.2-12.0 [facility] Comment on above: Performed By: #### L 500.2500, L100.0100 ####[facility] [address] [place], [address] Platelets (Bld) [#/Vol] 256 10*3/uL Normal 150-450 [facility] Comment on above: Performed By: #### L 500.2500, L100.0100 ####[facility] [address] [place], [address] RBC (Bld) [#/Vol] 4.59 10*6/uL Normal 4.2-5.4 [facility] Comment on above: Performed By: #### L 500.2500, L100.0100 ####[facility] [address] [place], [address] RDW SD 44.0 fl High 35.1-43.9 [facility] Comment on above: Performed By: #### L 500.2500, L100.0100 ####[facility] [address] [place], [address] WBC (Bld) [#/Vol] 6.6 10*3/uL Normal 4.4-11.0 [facility] Comment on above: Performed By: #### L 500.2500, L100.0100 ####[facility] [address] [place], [address] Basic Metabolic Profile (BMP )on 06-26-2024 BUN/CRE 15.4 RATIO Normal 10-20 [facility] Comment on above: Performed By: #### L 100.0100, L500.2500 #### [facility] [address] [place], [address] CA,Total 9.9 mg/dL Normal 8.5-10.1 [facility] Comment on above: Performed By: #### L 100.0100, L500.2500 #### [facility] [address] [place], [address] Chloride [Moles/Vol] 109 mmol/L High 98-107 [facility] Comment on above: Performed By: #### L 100.0100, L500.2500 #### [facility] [address] [place], [address] CO2 [Moles/Vol] 24.0 mmol/L Normal 21.0-32.0 [facility] Comment on above: Performed By: #### L 100.0100, L500.2500 #### [facility] [address] [place], [address] Creatinine [Mass/Vol] 1.23 mg/dL High 0.55-1.02 [facility] Comment on above: Result Comment: The validity of the calculated GFR GFRAA in patients over 70 years has not been determined. Clinical correlation is essential. Performed By: #### L 100.0100, L500.2500 #### [facility] [address] [place], [address] ECRCL 55.31 ml/min Normal [facility] Comment on above: Performed By: #### L 100.0100, L500.2500 #### [facility] [address] [place], [address] EST GFR - AA 57 mL/min Low >60 [facility] Comment on above: Result Comment: Afri can [place] GFR Calc Performed By: #### L 100.0100, L500.2500 #### [facility] [address] [place], [address] GAP 9 Normal 5-15 [facility] Comment on above: Performed By: #### L 100.0100, L500.2500 #### [facility] [address] [place], [address] GFR/1.73 sq M.predicted among non-blacks MDRD (S/P/Bld) [Vol rate/Area] 47 mL/min/{1.73_m2} Low >60 [facility] Comment on above: Result Comment: Non- GFR Calc Performed By: #### L 100.0100, L500.2500 #### [facility] [address] [place], [address] Glucose [Mass/Vol] 128 mg/dL High 74-106 [facility] Comment on above: Result Comment: Fast ing Glucose result greater than or equal to 126 mg/dL suggests DIABETES MELLITUS per A.D.A. criteria. Performed By: #### L 100.0100, L500.2500 #### [facility] [address] [place], [address] Potassium [Moles/Vol] 3.7 mmol/L Normal 3.5-5.1 [facility] Comment on above: Performed By: #### L 100.0100, L500.2500 #### [facility] [address] [place], [address] Sodium [Moles/Vol] 142 mmol/L Normal 136-145 [facility] Comment on above: Performed By: #### L 100.0100, L500.2500 #### [facility] [address] [place], [address] Urea nitrogen [Mass/Vol] 19 mg/dL High 7-18 [facility] Comment on above: Performed By: #### L 100.0100, L500.2500 #### [facility] [address] [place], [address] CBC W/Diff, Automatedon 09-0 -2023 Absolute Lymph 1.48 X10 3/uL Normal 0.83-4.51 [facility] Comment on above: Performed By: #### L 100.0100, L500.2500 #### [facility] [address] [place], [address] Absolute Neut 5.9 X10 3/uL Normal 2.0-7.7 [facility] Comment on above: Performed By: #### L 100.0100, L500.2500 #### [facility] [address] [place], [address] Basophils/100 WBC (Bld) 1.0 % Normal 0-1 [facility] Comment on above: Performed By: #### L 100.0100, L500.2500 #### [facility] [address] [place], [address] Eosinophils/100 WBC (Bld) 1.5 % Normal 0-5 [facility] Comment on above: Performed By: #### L 100.0100, L500.2500 #### [facility] [address] [place], [address] Erythrocyte distribution width (RBC) [Ratio] 13.2 % Normal 11.6-14.6 [facility] Comment on above: Performed By: #### L 100.0100, L500.2500 #### [facility] [address] [place], [address] Hematocrit (Bld) [Volume fraction] 47.4 % High 37-47 [facility] Comment on above: Performed By: #### L 100.0100, L500.2500 #### [facility] [address] [place], [address] Hemoglobin (Bld) [Mass/Vol] 15.7 g/dL High 12.0-15.0 [facility] Comment on above: Performed By: #### L 100.0100, L500.2500 #### [facility] [address] [place], [address] IG% 0.700 Normal 0.0-0.9 [facility] Comment on above: Result Comment: IG% - Immature Granulocytes (promyelocytes, myelocytes and metamyelocytes) > 1% indicates that a LEFT SHIFT is Present. Performed By: #### L 100.0100, L500.2500 #### [facility] [address] [place], [address] Lymphocytes/100 WBC (Bld) 18.3 % Low 19-41 [facility] Comment on above: Performed By: #### L 100.0100, L500.2500 #### [facility] [address] [place], [address] MCH (RBC) [Entitic mass] 29.6 pg Normal 27.0-32.0 [facility] Comment on above: Performed By: #### L 100.0100, L500.2500 #### [facility] [address] [place], [address] MCHC (RBC) [Mass/Vol] 33.1 g/dL Normal 32-36 [facility] Comment on above: Performed By: #### L 100.0100, L500.2500 #### [facility] [address] [place], [address] MCV (RBC) [Entitic vol] 89.4 fL Normal 81-99 [facility] Comment on above: Performed By: #### L 100.0100, L500.2500 #### [facility] [address] [place], [address] Monocytes/100 WBC (Bld) 5.4 % Normal 0-10 [facility] Comment on above: Performed By: #### L 100.0100, L500.2500 #### [facility] [address] [place], [address] Neutrophils/100 WBC (Bld) 73.1 % High 47-70 [facility] Comment on above: Performed By: #### L 100.0100, L500.2500 #### [facility] [address] [place], [address] Nucleated RBC (Bld) [#/Vol] 0 10*3/uL Normal 0-5 [facility] Comment on above: Performed By: #### L 100.0100, L500.2500 #### [facility] [address] [place], [address] Platelet mean volume (Bld) [Entitic vol] 9.7 fL Normal 6.2-12.0 [facility] Comment on above: Performed By: #### L 100.0100, L500.2500 #### [facility] [address] [place], [address] Platelets (Bld) [#/Vol] 324 10*3/uL Normal 150-450 [facility] Comment on above: Performed By: #### L 100.0100, L500.2500 #### [facility] [address] [place], [address] RBC (Bld) [#/Vol] 5.30 10*6/uL Normal 4.2-5.4 [facility] Comment on above: Performed By: #### L 100.0100, L500.2500 #### [facility] [address] [place], [address] RDW SD 42.5 fl Normal 35.1-43.9 [facility] Comment on above: Performed By: #### L 100.0100, L500.2500 #### [facility] [address] [place], [address] WBC (Bld) [#/Vol] 8.1 10*3/uL Normal 4.4-11.0 [facility] Comment on above: Performed By: #### L 100.0100, L500.2500 #### [facility] [address] [place], [address] Emergency Department Summary on 06-26-2024 Emergency Department Summary [facility] Medical Records Department [address] [place] [address] Emergency Department Summary 06/26/24 MR#: [id number] Acct: [id number] Name: DARIA ALVAREZ Rep #: [id number] : 1960 63 From: Johnny Tillman MD PCP: Dr. Hector Johnson MD Status:REG ER Location: ED HPI History of Present Illness Chief Complaint: Numb/Ting Detail of Chief Complaint: Generalized weakness, difficulty ambulating, requiring more assistance Informant: patient and spouse/S.O. Onset/Context/Timing Onset: Month(s) (Symptoms started approximately 6 months ago, worse the past 4 to 6 weeks.) Context: - (Generalized weakness with weekly exacerbations) Timing: Continuous and Waxes and wanes Quality: Patient has a shuffled gait. She has had a shuffled gait for 6 months. Current Severity: Mild Maximum Severity: Severe Worsened by: History of MS Relieved by: Nothing Associated Symptoms Associated Symptoms: Nothing Narrative Narrative: Patient is a 63-year-old woman who was diagnosed with MS in 1961. She lives with her . She fell and required assistance by her children since her was golfing. This occurred several weeks ago. Patient's had trouble ambulating for the past 6 months. states 1 she gets her up she is able to shuffle to go to use the restroom. Approximately once a week for the past 4 to 6 weeks she has not been able to get up. Patient is present on no medication. Review of records indicates she has hypertension and should be on lisinopril and Cymbalta. She is on no medication for MS. She had an MRI of her brainFebruary 2023 which apparently revealed an active lesion per neurologist at [facility]. He ordered a MRI that was declined. Insurance declined because patient had MRI 6 months prior. She also had MRI of her cervical and thoracic spine. Prior similar symptoms: Yes Recent Illness/Hospitalizati on: No PFSH PFSH Medical History Depression Hypertension Home Medications ???Medication ???Instructions ???Recorded ???Last Taken ???Type duloxetine 60 mg capsule,delayed 60 mg PO DAILY DEPRESSION 04/12/15 Unknown History release (Cymbalta) lisinopril 10 mg tablet 10 mg PO DAILY BP 06/29/19 Unknown History dietary supplement cap PO 06/26/24 Unknown History Allergy/AdvReac Type Severity Reaction Status Date / Time morphine Allergy Chest Verified 06/29/19 10:08 tightness Surgical History Hx of bilateral breast reduction surgery History of total replacement of both hip joints Hx of cholecystectomy Hx of appendectomy Social History (Updated 06/26/24 @ 16:[address] Johnny Tillman MD) household members: spouse Smoking Status: Never smoker ROS ROS ED Constitutional Constitutional ED: Denies chills, fever(s), subjective, sweats or weight loss Eyes Eyes: Denies blurry vision, change in vision or diplopia ENT ENT ED: Denies ear pain, rhinorrhea or sore throat Cardiovascular Cardiovascular: Denies chest pain or palpitations Respiratory/Chest Respiratory/Chest: Denies cough, dyspnea or dyspnea on exertion Gastrointestinal Gastrointestinal: Denies abdominal pain, diarrhea, nausea or vomiting Genitourinary Genitourinary ED: Denies dysuria, hematuria or urinary frequency Musculoskeletal Musculoskeletal: Denies arthralgias, back pain, myalgias or neck pain Integumentary Denies Abrasions or rash Neurologic Neurologic: Reports paresthesias, weakness and other Details: Patient has paresthesia tips of all her fingers and toes. ; Denies headache(s) Endocrine Endocrinology: Denies cold intolerance or heat intolerance Hematologic/Lymphatic Hematologic/Lymphatic : Reports systems reviewed and no addt'l complaints, except as documented EXAM Physical Exam Const Vital Signs: 06/26/24 15:13 06/26/24 15:17 06/26/24 17:11 Temperature 98.3 F 98.3 F Temperature Source Oral Oral Pulse Rate 104 H 101 H 95 Respiratory Rate 24 H 17 16 Blood Pressure 165/87 H 171/127 H Blood Pressure Mean 113 141 Pulse Ox 97 98 Oxygen Delivery Method Room Air 06/26/24 19:00 Temperature Temperature Source Pulse Rate 94 Respiratory Rate 16 Blood Pressure 157/109 H Blood Pressure Mean 125 Pulse Ox 95 Oxygen Delivery Method Room Air Positive well nourished and well developed General Appearance ED: well developed and NAD HEENT Reports moist mucous membranes HEENT Narrative: Head is atraumatic no cephalic. Ears normal. Nares patent. Posterior pharynx is normal. No dental trauma. Eyes PERRL and EOMs intact bilaterally General Eye ED: Negative for pale conjunctiva or scleral icterus Neck no lymphadenopathy and supple Resp normal respiratory effort and clear to ausc (more content not included)... Normal [facility] H AND P Exam - Hospitaliston 06-26-2024 H&P Exam - Hospitalist [facility] Medical Records Department [address] [place] [address] H P Exam - Hospitalist 06/26/242018 MR#: [id number] Acct: [id number] Name: DARIA ALVAREZ Rep #: [id number] : 1960 63 From: Josr Larose MD PCP: Dr. Hector Johnson MD Status:ADM IN Location: DC3 [id number] HPI - General General Date of Admission: 06/26/24 Date of Service: 06/26/24 Chief Complaint: Weakness HPI Narrative DARIA ALVAREZ, is a 63 F with a significant history of multiple sclerosis who presents to the emergency department with weakness above her baseline. Reportedly in 1991 patient was diagnosed with multiple sclerosis at the [facility]. In January this year she had an MRI that showed a new lesion in her brain and her neurologist wanted a repeat MRI in 6 months time. However her insurance will not pay for a repeat MRI. Reportedly once in the week patient has increase in her weakness. At baseline she is unable to walk except that she can stand up and shuffle a few steps into a wheelchair. However about once a week she is even unable to stand and her daughters together with her help her. However on the day of presentation her daughters were not available and her could not help the patient alone by himself so patient was brought to the emergency department. [facility] Medical History (Updated 06/26/24 @ 20:[address] Josr Larose MD) Depression Hypertension Home Medications ???Medication ???Instructions ???Recorded ???Last Taken ???Type duloxetine 60 mg capsule,delayed 60 mg PO DAILY DEPRESSION 04/12/15 Unknown History release (Cymbalta) lisinopril 10 mg tablet 10 mg PO DAILY BP 06/29/19 Unknown History dietary supplement cap PO 06/26/24 Unknown History Allergy/AdvReac Type Severity Reaction Status Date / Time morphine Allergy Chest Verified 06/29/19 10:08 tightness Family History Other Cancer Lupus Porphyria Surgical History Hx of bilateral breast reduction surgery History of total replacement of both hip joints Hx of cholecystectomy Hx of appendectomy Social History household members: spouse Smoking Status: Never smoker ROS ROS Narrative Pertinent positives and pertinent negatives as noted in HPI. All other systems were reviewed and are negative Vital Signs Vital Signs Vital Signs: 06/26/24 15:13 06/26/24 15:17 06/26/24 17:11 Temperature 98.3 F 98.3 F Temperature Source Oral Oral Pulse Rate 104 H 101 H 95 Respiratory Rate 24 H 17 16 Blood Pressure 165/87 H 171/127 H Blood Pressure Mean 113 141 Pulse Ox 97 98 Oxygen Delivery Method Room Air 06/26/24 19:00 06/26/24 20:00 06/26/24 20:12 Temperature 98.5 F Temperature Source Pulse Rate 94 100 92 Respiratory Rate 16 18 18 Blood Pressure 157/109 H 192/93 H 180/132 H Blood Pressure Mean 125 126 148 Pulse Ox 95 95 96 Oxygen Delivery Method Room Air Room Air Weight Weight: 94.7 kg Body Mass Index (BMI) 32.7 Physical Exam Narrative Physical exam: General: Well-nourished, well-developed. Head: Normocephalic, atraumatic, no tenderness Eyes: Vision is grossly intact. EOMI ENT, no trauma, moist mucous membranes, no rhinorrhea Neck: Nontender, No thyromegaly. CVS: Regular rate and rhythm. S1-S2 present. No murmur, gallop or rub. Respiratory : clear to auscultation bilaterally, chest wall nontender Abdomen: Soft, nontender, nondistended, normal bowel sounds, no masses : Deferred Back: Nontender, no CVA tenderness, no midline spinal tenderness, deformities, step-offs Extremities: Unable to raise left lower extremity as high as right lower extremity. Strength in left lower extremity decreased compared to strength in right lower extremity. Strength in right upper extremity and left upper extremity equal. Skin: Normal color, no trauma, abrasions Neuro: Alert, oriented, cranial nerves II through XII grossly intact. Psychiatry: Normal mood. Normal affect. Not depressed. Not anxious. Results Lab / Micro Data 06/26/24 16:00 06/26/24 16:00 Labs: Laboratory Results - last 24 hr 06/26/24 16:00: WBC 8.1, RBC 5.30, Hgb 15.7 H, Hct 47.4 H, MCV 89.4, MCH 29.6, MCHC 33.1, RDW Std Deviation 42.5, RDW Coeff of Nola 13.2, Plt Count 324, MPV 9.7, Immature Gran % (Auto) 0.700, Neut % (Auto) 73.1 H, Lymph % (Auto) 18.3 L, Loup % (Auto) 5.4, Eos % (Auto) 1.5, Baso % (Auto) 1.0, Absolute Neuts (auto) 5.9, Absolute Lymphs (auto) 1.48, Nucleated RBC % 0, Sodium 142, Potassium 3.7, Chloride 109 H, Carbon Dioxide 24.0, Anion Gap 9, BUN 19 H, Creatinine 1.23 H, Estim Creat Clear Calc 55.31, Est GFR (MDRD) Af Amer 57 L (more content not included)... Normal [facility] Urinalysis, Completeon 06-26 WBC >100 SEEN Normal 0-5 [facility] Comment on above: Order Comment: JANICE TER SPECIMEN Result Comment: Micr oscopic field is filled. Other elements may be obscured. Performed By: #### L 400.0001 ####[facility] [address] [place], [address] RBC 5-10 SEEN Normal 0-5 [facility] Comment on above: Order Comment: JANICE TER SPECIMEN Performed By: #### L 400.0001 ####[facility] [address] [place], [address] BACTERIA 4+ /hpf Normal None Seen [facility] Comment on above: Order Comment: JANICE TER SPECIMEN Performed By: #### L 400.0001 ####[facility] [address] [place], [address] EPI,SQUAMOUS 0 SEEN Normal 5-10 [facility] Comment on above: Order Comment: JANICE TER SPECIMEN Performed By: #### L 400.0001 ####[facility] [address] [place], [address] Mucus Ql (Urine sed) 0 SEEN Normal [facility] Comment on above: Order Comment: JANICE TER SPECIMEN Performed By: #### L 400.0001 ####[facility] [address] [place], [address] Brain W/WO Contraston 2023 Brain W/WO Contrast [facility] Imaging Services [address] [place] [address] Brain W/WO Contrast MR#: [id number] Acct: [id number] Name: DARIA ALVAREZ Rep #: [id number] : 1960 F 63 From: Michael Gabriel PCP: Dr. Hector Johnson MD Status: REG CL Study: Brain W/WO Contrast Date of Exam: 12/17/23 Exam# [id number] Ordering Dr: RACHELL HIGHTOWER MD [id number] STUDY: MRI BRAIN WITH AND WITHOUT CONTRAST REASON FOR EXAM: Female, 63 years old. MS FOLLOW UP TECHNIQUE: Standardized multiplanar fat and water weighted pulse sequences were obtained. IV 19ml clariscan was administered for the contrast portion of the examination. COMPARISON: CT head November 09, 2007 images only FINDINGS: Normal size of the ventricles and extra-axial spaces for the patient''s age. Moderate confluent periventricular T2 lengthening. Isolated punctate focus of restricted diffusion precentral gyrus on the left. Normal bilateral basal ganglia. Normal thalami. There is no extra-axial fluid accumulation. Normal flow voids within the major intracranial circulation suggesting patency by spin echo criteria. Normal venous enhancement. There is no enhancing intra-axial or extra-axial abnormality. Normal sella turcica, pituitary gland, infundibular stalk, optic chiasm and hypothalamus. Normal tectal plate and pineal gland. Normal midbrain, roel and medulla. Normal cerebellum. Normal basal cisterns. Normal bilateral temporal bones. Normal bilateral internal auditory canals. No demonstrated orbital abnormality, within the constraints of a routine brain study. Normal visualized paranasal sinuses. Normal calvarium and skull base. Normal visualized soft tissue structures. Normal visualized upper cervical spine. MRI/Brain W/WO Contrast IMPRESSION: Moderate periventricular white matter disease consistent with patient''s history of multiple sclerosis. Isolated punctate focus of enhancement left precentral gyrus may represent active demyelination. Electronically Signed: Michael Reaves MD at 23:26 EST , CC: Dr. Hector Johnson MD; RACHELL HIGHTOWER MD [employer]ian: Signed Normal [facility] Spine Cervical W/WO Contrast on 12-17-2023 Spine Cervical W/WO Contrast [facility] Imaging Services [address] [place] [address] Spine Cervical W/WO Contrast MR#: [id number] Acct: [id number] Name: DARIA ALVAREZ Rep #: [id number] : 1960 F 63 From: Yayo Chester MD PCP: Dr. Hector Johnson MD Status: REG CLI Study: Spine Cervical W/WO Contrast Date of Exam: Exam# [id number] Ordering Dr: RACHELL HIGHTOWER MD [id number] STUDY: MRI CERVICAL SPINE WITH AND WITHOUT CONTRAST REASON FOR EXAM: Female, 63 years old. MS FOLLOW UP TECHNIQUE: Standardized fat and water weighted pulse sequences were obtained in the sagittal and axial following administration of 19 mL of IV Clariscan.. COMPARISON: None FINDINGS: Normal foramen magnum and brainstem-cervical cord junction. Normal craniovertebral junction. Normal anterior atlantoaxial articulation. Normal odontoid process. Normal cervical lordosis. Normal vertebral bodies and posterior osseous elements. C2-3: Normal endplates. Normal disc height, signal and morphology. Normal central canal and intervertebral neural foramina. C3-4: Normal endplates. Mild disc space height narrowing. Mild ventral extra dural defect due to minimal retrolisthesis of C3 on C4 with small posterior bulging annulus. Normal central canal and intervertebral neural foramina. C4-5: Normal endplates. Normal disc height. Mild ventral extradural defect due to posterior bulging annulus. Normal central canal and intervertebral neural foramina. C5-6: Normal endplates. Normal disc height, signal and morphology. Normal central canal and intervertebral neural foramina. C6-7: Normal endplates. Normal disc height. Mild ventral extradural defect due to posterior bulging annulus. Normal central canal and intervertebral neural foramina. C7-T1: Normal endplates. Normal disc height, signal and morphology. Normal central canal and intervertebral neural foramina. T1-T2, T2-T3, T3-T4, T4-T5 and T5-T6: (Sagittal only). Normal endplates. Normal disc height, signal and morphology. Normal central canal and intervertebral neural foramina. Abnormal intramedullary high signal intensity of the spinal cord along the C2 vertebral body level with mild cord expansion and along the upper T1 down to mid T2 vertebral body level with mild cord atrophy on STIR sequence. Abnormal high signal intensity along the lower anterior medulla on the STIR sequence. These are MS plaques but are nonenhancing. Following IV contrast administration, there are no enhancing active MS plaques throughout the cervical spine. There are no abnormally enhancing lesions intradurally and extradurally. Normal visualized soft tissue structures. MRI/Spine Cervical W/WO Contrast IMPRESSION: 1. No MRI evidence of active enhancing MS plaques in the cervical spine and the upper thoracic spine. 2. Abnormal intramedullary high signal intensity of the cervical spinal cord along the C2 vertebral body level with minimal cord expansion and along the T1 vertebral body level and down to the mid T2 vertebral body level with cord atrophy on STIR sequence and abnormal high signal intensity on the anterior aspect of the lower medulla on STIR sequence. These are all nonenhancing MS plaques. Electronically Signed: Yayo Chester MD at 10:18 EST , CC: Dr. Hector Johnson MD; RACHELL HIGHTOWER MD [employer] Electrician: Signed Normal [facility] Spine Thoracic W/WO Contrast on 12-17-2023 Spine Thoracic W/WO Contrast [facility] Imaging Services [address] [place] [address] Spine Thoracic W/WO Contrast MR#: [id number] Acct: [id number] Name: DARIA ALVAREZ Rep #: [id number] : 1960 F 63 From: Michael Gabriel PCP: Dr. Hector Johnson MD Status: REG CLI Study: Spine Thoracic W/WO Contrast Date of Exam: Exam# [id number] Ordering Dr: RACHELL HIGHTOWER MD [id number] STUDY: MRI THORACIC SPINE WITH AND WITHOUT CONTRAST REASON FOR EXAM: Female, 63 years old. MS FOLLOW UP TECHNIQUE: IV 19ml clariscan was administered for the contrast portion of the examination. COMPARISON: None. FINDINGS: Normal kyphosis of the thoracic spine. There is no substantial scoliosis. T1-2, T2-3, T3-4, T4-5, T5-6, T6-7, T7-8, T8-9, T9-10, T10-11, T11-12: Normal endplates. Normal disc hydration, heights and morphology of the corresponding intervertebral discs. Normal central canal and intervertebral neural foramina at the corresponding levels. Normal visualized thoracic cord. Normal conus medullaris that terminates at the . The soft tissue structures are unremarkable. There is no enhancing abnormality. MRI/Spine Thoracic W/WO Contrast IMPRESSION: Normal unenhanced and enhanced MRI examination of the thoracic spine. Electronically Signed: Michael Reaves MD at 23:48 EST , CC: Dr. Hector Johnson MD; RACHELL HIGHTOWER MD [employer] Electrician: Signed Normal [facility] 11-25-2023 [facility] Telephone (NI) JASENDARIA Hernandez ([id number]) 1960 F Date Time Provider Department 11/25/23 NEUROLOGY PROVIDER JULISSA During your visit today, we recorded the following information about you: Tatianna Murphy OCCA 11/25/2023 12:42 PM Signed TC to patient with no answer. Left VM to return call to office. Received referral from [facility] for patient to be seen for MS. Patient previously seen in the clinic in 2003 for this. Patient will need to schedule with [facility]. Referral scanned to patients chart. YI Killian Jessica, LPN 11/30/2023 2:18 PM Signed TC to pt with no answer, left VM to return call. RHYS Gerber Stephanie, RN 12/01/2023 1:08 PM Signed Patient calls back and states that she is seeing someone from [facility] for neurology and MS diagnosis. Augustina Garcia RN Allergies As of Date: 11/25/2023 (Not on File) Date Reviewed: 03/22/2004 Reviewed by: - Reviewed Reason for Visit: Consult [502] Prescriptions as of 12/01/2023 - MOTRIN IB 200MG TABLET prn for back ache - ASPIRIN 325MG TABLET 4 tabs for headache - DETROL LA 2MG CAPSULE SA 1 tab qd Problem List As Of Date 11/25/2023 Noted Resolved MULTIPLE SCLEROSIS [G35] 06/05/2003 UNEMPLOYMENT [Z56.0] 06/05/2003 SYMBOLIC DYSFUNCTION NOS [R48.9] 09/15/2003 Encounter Status:Closed by AUGUSTINA GARCIA on 12/01/23 Normal [facility] Absolute lymphocyte countOrd ered By: Hector Johnson on 11-17-2023 Lymphocytes Auto (Unsp spec) [#/Vol] 1.52 10*3/uL 0.83-4.51 [facility] Automated lymphocyte count a s percentage of total leukocytesOrdered By: Hector Johnson on 11-17-2023 Lymphocytes/100 WBC Auto (Unsp spec) 15.4 % 19-41 [facility] Basophil percentageOrdered B y: Hector Johnson on 11-17-2023 Basophils/100 WBC (Bld) 0.6 % 0-1 [facility] Bilirubin [Mass/Vol] 0.80 mg/dL 0.20-1.00 [facility] Comment on above: For patients on eltr ombopag therapy, use of Dimension Tolar TBIL is not recommended. Chloride [Moles/Vol] 110 mmol/L 98-107 [facility] Cholesterol [Mass/Vol] 196 mg/dL <200 [facility] Comment on above: <200 mg/dL Desirable 200-240 mg/dL Borderline >240 mg/dL High Risk Eosinophils/100 WBC (Bld) 0.8 % 0-5 [facility] Glucose [Mass/Vol] 109 mg/dL 74-106 [facility] Comment on above: Fasting Glucose resu lt from 100 to 125 mg/dL suggests IMPAIRED HOMEOSTASIS per A.D.A. criteria. Hemoglobin (Bld) [Mass/Vol] 15.8 g/dL 12.0-15.0 [facility] Monocytes/100 WBC (Bld) 4.3 % 0-10 [facility] Neutrophils (Bld) [#/Vol] 7.7 10*3/uL 2.0-7.7 [facility] Neutrophils/100 WBC (Bld) 78.3 % 47-70 [facility] Potassium [Moles/Vol] 4.0 mmol/L 3.5-5.1 [facility] Protein [Mass/Vol] 8.1 g/dL 6.4-8.2 [facility] Sodium [Moles/Vol] 139 mmol/L 136-145 [facility] Triglyceride [Mass/Vol] 165 mg/dL <199 [facility] Comment on above: The drugs N-Acetylcy steine and Metamizole may falsely depress this assay.Serum Triglycerides Reference Interval Normal <150 mg/dL Borderline high 150 - 199 mg/dL High 200 - 499 mg/dL Very High > or = 500 mg/dL WBC (Bld) [#/Vol] 9.8 10*3/uL 4.4-11.0 [facility] CBC W/Diff, Automatedon 01-11 28-2023 Absolute Lymph 1.52 X10 3/uL Normal 0.83-4.51 [facility] Comment on above: Order Comment: Order Date: 11/17/23 Order Info: [id number] - CBCD Performed By: #### L 100.0100, L500.4100, L506.1000, L501.9520, L500.4050 #### [facility] [address] [place], [address] Absolute Neut 7.7 X10 3/uL Normal 2.0-7.7 [facility] Comment on above: Order Comment: Order Date: 11/17/23 Order Info: 0184- - CBCD Performed By: #### L 100.0100, L500.4100, L506.1000, L501.9520, L500.4050 #### [facility] [address] [place], [address] Basophils/100 WBC (Bld) 0.6 % Normal 0-1 [facility] Comment on above: Order Comment: Order Date: 11/17/23 Order Info: 0184- - CBCD Performed By: #### L 100.0100, L500.4100, L506.1000, L501.9520, L500.4050 #### [facility] [address] [place], [address] Eosinophils/100 WBC (Bld) 0.8 % Normal 0-5 [facility] Comment on above: Order Comment: Order Date: 11/17/23 Order Info: 0184- - CBCD Performed By: #### L 100.0100, L500.4100, L506.1000, L501.9520, L500.4050 #### [facility] [address] [place], [address] Erythrocyte distribution width (RBC) [Ratio] 13.0 % Normal 11.6-14.6 [facility] Comment on above: Order Comment: Order Date: 11/17/23 Order Info: [id number] - CBCD Performed By: #### L 100.0100, L500.4100, L506.1000, L501.9520, L500.4050 #### [facility] [address] [place], [address] Hematocrit (Bld) [Volume fraction] 48.9 % High 37-47 [facility] Comment on above: Order Comment: Order Date: 11/17/23 Order Info: [id number] - CBCD Performed By: #### L 100.0100, L500.4100, L506.1000, L501.9520, L500.4050 #### [facility] [address] [place], [address] Hemoglobin (Bld) [Mass/Vol] 15.8 g/dL High 12.0-15.0 [facility] Comment on above: Order Comment: Order Date: 11/17/23 Order Info: 0184-1 - CBCD Performed By: #### L 100.0100, L500.4100, L506.1000, L501.9520, L500.4050 #### [facility] [address] [place], [address] IG% 0.600 Normal 0.0-0.9 [facility] Comment on above: Order Comment: Order Date: 11/17/23 Order Info: [id number] - CBCD Result Comment: IG% - Immature Granulocytes (promyelocytes, myelocytes and metamyelocytes) > 1% indicates that a LEFT SHIFT is Present. Performed By: #### L 100.0100, L500.4100, L506.1000, L501.9520, L500.4050 #### [facility] [address] [place], [address] Lymphocytes/100 WBC (Bld) 15.4 % Low 19-41 [facility] Comment on above: Order Comment: Order Date: 11/17/23 Order Info: 0184-1 - CBCD Performed By: #### L 100.0100, L500.4100, L506.1000, L501.9520, L500.4050 #### [facility] [address] [place], [address] MCH (RBC) [Entitic mass] 28.5 pg Normal 27.0-32.0 [facility] Comment on above: Order Comment: Order Date: 11/17/23 Order Info: 018- - CBCD Performed By: #### L 100.0100, L500.4100, L506.1000, L501.9520, L500.4050 #### [facility] [address] [place], [address] MCHC (RBC) [Mass/Vol] 32.3 g/dL Normal 32-36 [facility] Comment on above: Order Comment: Order Date: 11/17/23 Order Info: 018- - CBCD Performed By: #### L 100.0100, L500.4100, L506.1000, L501.9520, L500.4050 #### [facility] [address] [place], [address] MCV (RBC) [Entitic vol] 88.1 fL Normal 81-99 [facility] Comment on above: Order Comment: Order Date: 11/17/23 Order Info: 018- - CBCD Performed By: #### L 100.0100, L500.4100, L506.1000, L501.9520, L500.4050 #### [facility] [address] [place], [address] Monocytes/100 WBC (Bld) 4.3 % Normal 0-10 [facility] Comment on above: Order Comment: Order Date: 11/17/23 Order Info: 018-1 - CBCD Performed By: #### L 100.0100, L500.4100, L506.1000, L501.9520, L500.4050 #### [facility] [address] [place], [address] Neutrophils/100 WBC (Bld) 78.3 % High 47-70 [facility] Comment on above: Order Comment: Order Date: 11/17/23 Order Info: 018-1 - CBCD Performed By: #### L 100.0100, L500.4100, L506.1000, L501.9520, L500.4050 #### [facility] [address] [place], [address] Nucleated RBC (Bld) [#/Vol] 0 10*3/uL Normal 0-5 [facility] Comment on above: Order Comment: Order Date: 11/17/23 Order Info: 018- - CBCD Performed By: #### L 100.0100, L500.4100, L506.1000, L501.9520, L500.4050 #### [facility] [address] [place], [address] Platelet mean volume (Bld) [Entitic vol] 9.5 fL Normal 6.2-12.0 [facility] Comment on above: Order Comment: Order Date: 11/17/23 Order Info: 018- - CBCD Performed By: #### L 100.0100, L500.4100, L506.1000, L501.9520, L500.4050 #### [facility] [address] [place], [address] Platelets (Bld) [#/Vol] 339 10*3/uL Normal 150-450 [facility] Comment on above: Order Comment: Order Date: 11/17/23 Order Info: 018-1 - CBCD Performed By: #### L 100.0100, L500.4100, L506.1000, L501.9520, L500.4050 #### [facility] [address] [place], [address] RBC (Bld) [#/Vol] 5.55 10*6/uL High 4.2-5.4 [facility] Comment on above: Order Comment: Order Date: 11/17/23 Order Info: [id number] - CBCD Performed By: #### L 100.0100, L500.4100, L506.1000, L501.9520, L500.4050 #### [facility] [address] [place], [address] RDW SD 42.2 fl Normal 35.1-43.9 [facility] Comment on above: Order Comment: Order Date: 11/17/23 Order Info: 0184- - CBCD Performed By: #### L 100.0100, L500.4100, L506.1000, L501.9520, L500.4050 #### [facility] [address] [place], [address] WBC (Bld) [#/Vol] 9.8 10*3/uL Normal 4.4-11.0 [facility] Comment on above: Order Comment: Order Date: 11/17/23 Order Info: [id number] - CBCD Performed By: #### L 100.0100, L500.4100, L506.1000, L501.9520, L500.4050 #### [facility] [address] [place], [address] Comprehensive Metabolic Prof ilon 11-17-2023 Albumin [Mass/Vol] 4.2 g/dL Normal 3.2-5.0 [facility] Comment on above: Order Comment: Order Date: 11/17/23Order Info: [id number] - CMPOrder Info: [id number] - LIPIDOrder Info: [id number] - TSH Performed By: #### L 100.0100, L500.4100, L506.1000, L501.9520, L500.4050 ####[facility] [address] [place], [address] Albumin/Globulin [Mass ratio] 1.1 {ratio} Normal 0.9-2.4 [facility] Comment on above: Order Comment: Order Date: 11/17/23Order Info: [id number] - CMPOrder Info: [id number] - LIPIDOrder Info: [id number] - TSH Performed By: #### L 100.0100, L500.4100, L506.1000, L501.9520, L500.4050 ####[facility] [address] [place], [address] ALK P 112 U/L Normal 45-117 [facility] Comment on above: Order Comment: Order Date: 11/17/23Order Info: 86-1 - CMPOrder Info: [id number] - LIPIDOrder Info: 3 - TSH Performed By: #### L 100.0100, L500.4100, L506.1000, L501.9520, L500.4050 ####[facility] [address] [place], [address] ALT [Catalytic activity/Vol] 59 U/L High 13-56 [facility] Comment on above: Order Comment: Order Date: 11/17/23Order Info: 86-1 - CMPOrder Info: [id number] - LIPIDOrder Info: 3 - TSH Performed By: #### L 100.0100, L500.4100, L506.1000, L501.9520, L500.4050 ####[facility] [address] [place], [address] AST [Catalytic activity/Vol] 37 U/L Normal 15-37 [facility] Comment on above: Order Comment: Order Date: 11/17/23Order Info: [id number] - CMPOrder Info: [id number] - LIPIDOrder Info: [id number] - TSH Performed By: #### L 100.0100, L500.4100, L506.1000, L501.9520, L500.4050 ####[facility] [address] [place], [address] Bilirubin [Mass/Vol] 0.80 mg/dL Normal 0.20-1.00 [facility] Comment on above: Order Comment: Order Date: 11/17/23Order Info: [id number]- - CMPOrder Info: - LIPIDOrder Info: 3 - TSH Result Comment: For patients on eltrombopag therapy, use of Dimension Tolar TBIL is not recommended. Performed By: #### L 100.0100, L500.4100, L506.1000, L501.9520, L500.4050 ####[facility] [address] [place], [address] BUN/CRE 16.4 RATIO Normal 10-20 [facility] Comment on above: Order Comment: Order Date: 11/17/23Order Info: [id number] - CMPOrder Info: [id number] - LIPIDOrder Info: 3 - TSH Performed By: #### L 100.0100, L500.4100, L506.1000, L501.9520, L500.4050 ####[facility] [address] [place], [address] CA,Total 9.8 mg/dL Normal 8.5-10.1 [facility] Comment on above: Order Comment: Order Date: 11/17/23Order Info: 07 - CMPOrder Info: - LIPIDOrder Info: 3 - TSH Performed By: #### L 100.0100, L500.4100, L506.1000, L501.9520, L500.4050 ####[facility] [address] [place], [address] Chloride [Moles/Vol] 110 mmol/L High 98-107 [facility] Comment on above: Order Comment: Order Date: 11/17/23Order Info: 07 - CMPOrder Info: [id number] - LIPIDOrder Info: 3 - TSH Performed By: #### L 100.0100, L500.4100, L506.1000, L501.9520, L500.4050 ####[facility] [address] [place], [address] CO2 [Moles/Vol] 21.0 mmol/L Normal 21.0-32.0 [facility] Comment on above: Order Comment: Order Date: 11/17/23Order Info: [id number] - CMPOrder Info: [id number] - LIPIDOrder Info: [id number] - TSH Performed By: #### L 100.0100, L500.4100, L506.1000, L501.9520, L500.4050 ####[facility] [address] [place], [address] Creatinine [Mass/Vol] 1.16 mg/dL High 0.55-1.02 [facility] Comment on above: Order Comment: Order Date: 11/17/23Order Info: 785- - CMPOrder Info: [id number] - LIPIDOrder Info: 3 - TSH Result Comment: The validity of the calculated GFR GFRAA in patients over 70 years has not been determined. Clinical correlation is essential. Performed By: #### L 100.0100, L500.4100, L506.1000, L501.9520, L500.4050 ####[facility] [address] [place], [address] EST GFR - AA 61 mL/min Normal >60 [facility] Comment on above: Order Comment: Order Date: 11/17/23Order Info: 785- - CMPOrder Info: [id number] - LIPIDOrder Info: 3 - TSH Result Comment: Afri can [place] GFR Calc Performed By: #### L 100.0100, L500.4100, L506.1000, L501.9520, L500.4050 ####[facility] [address] [place], [address] GAP 8 Normal 5-15 [facility] Comment on above: Order Comment: Order Date: 11/17/23Order Info: [id number] - CMPOrder Info: [id number] - LIPIDOrder Info: [id number] - TSH Performed By: #### L 100.0100, L500.4100, L506.1000, L501.9520, L500.4050 ####[facility] [address] [place], [address] GFR/1.73 sq M.predicted among non-blacks MDRD (S/P/Bld) [Vol rate/Area] 50 mL/min/{1.73_m2} Low >60 [facility] Comment on above: Order Comment: Order Date: 11/17/23Order Info: [id number] - CMPOrder Info: [id number] - LIPIDOrder Info: [id number] - TSH Result Comment: Non- GFR Calc Performed By: #### L 100.0100, L500.4100, L506.1000, L501.9520, L500.4050 ####[facility] [address] [place], [address] Globulin (S) [Mass/Vol] 3.9 g/dL Normal 2.2-4.2 [facility] Comment on above: Order Comment: Order Date: 11/17/23Order Info: [id number]- - CMPOrder Info: [id number] - LIPIDOrder Info: [id number] - TSH Performed By: #### L 100.0100, L500.4100, L506.1000, L501.9520, L500.4050 ####[facility] [address] [place], [address] Glucose [Mass/Vol] 109 mg/dL High 74-106 [facility] Comment on above: Order Comment: Order Date: 11/17/23Order Info: [id number] - CMPOrder Info: [id number] - LIPIDOrder Info: [id number] - TSH Result Comment: Fast ing Glucose result from 100 to 125 mg/dL suggests IMPAIRED HOMEOSTASIS per A.D.A. criteria. Performed By: #### L 100.0100, L500.4100, L506.1000, L501.9520, L500.4050 ####[facility] [address] [place], [address] Potassium [Moles/Vol] 4.0 mmol/L Normal 3.5-5.1 [facility] Comment on above: Order Comment: Order Date: 11/17/23Order Info: [id number] - CMPOrder Info: [id number] - LIPIDOrder Info: [id number] - TSH Performed By: #### L 100.0100, L500.4100, L506.1000, L501.9520, L500.4050 ####[facility] [address] [place], [address] Sodium [Moles/Vol] 139 mmol/L Normal 136-145 [facility] Comment on above: Order Comment: Order Date: 11/17/23Order Info: [id number] - CMPOrder Info: [id number] - LIPIDOrder Info: [id number] - TSH Performed By: #### L 100.0100, L500.4100, L506.1000, L501.9520, L500.4050 ####[facility] [address] [place], [address] T PROT 8.1 g/dL Normal 6.4-8.2 [facility] Comment on above: Order Comment: Order Date: 11/17/23Order Info: [id number] - CMPOrder Info: [id number] - LIPIDOrder Info: [id number] - TSH Performed By: #### L 100.0100, L500.4100, L506.1000, L501.9520, L500.4050 ####[facility] [address] [place], [address] Urea nitrogen [Mass/Vol] 19 mg/dL High 7-18 [facility] Comment on above: Order Comment: Order Date: 11/17/23Order Info: [id number] - CMPOrder Info: [id number] - LIPIDOrder Info: [id number] - TSH Performed By: #### L 100.0100, L500.4100, L506.1000, L501.9520, L500.4050 ####[facility] [address] [place], [address] Determination of erythrocyte mean corpuscular volume (MCV)Ordered By: Hector Johnson on 11-17-2023 MCV (RBC) [Entitic vol] 88.1 fL 81-99 [facility] Erythrocyte distribution wid th ratioOrdered By: [facility] on [facility]-17-2023 Erythrocyte distribution width (RBC) [Ratio] 13.0 % 11.6-14.6 [facility] Erythrocyte distribution wid th standard deviationOrdered By: [facility] on 11-17-2023 Erythrocyte distribution width (RBC) [Entitic vol] 42.2 fL 35.1-43.9 [facility] Hematocrit Auto (Bld) [Volum e fraction]Ordered By: [facility] on 11-17-2023 Hematocrit (Bld) [Volume fraction] 48.9 % 37-47 [facility] High density lipoprotein (HD L) measurementOrdered By: [facility] on 11-17-2023 Cholesterol in HDL (Body fld) [Mass/Vol] 54 mg/dL >40 [facility] Comment on above: The drugs N-Acetylcy steine and Metamizole may falsely depress this assay. Reference Range HDL <40 mg/dL Low HDL Cholesterol HDL >or= 60 mg/dL High HDL Cholesterol Immature granulocytes/100 WB C Auto (Bld)[facility]: [facility] 11-17-2023 Immature granulocytes/100 WBC (Bld) 0.600 % 0.0-0.9 [facility] Comment on above: IG% - Immature Granu locytes (promyelocytes, myelocytes and metamyelocytes) > 1% indicates that a LEFT SHIFT is Present. Laboratory - Chemistry and C hemistry - challengeOrdered By: [facility] on 11-17-2023 Albumin/Globulin [Mass ratio] 1.1 {ratio} 0.9-2.4 [facility] ALP [Catalytic activity/Vol] 112 U/L 45-117 [facility] ALT [Catalytic activity/Vol] 59 U/L 13-56 [facility] CO2 [Moles/Vol] 21.0 mmol/L 21.0-32.0 [facility] Globulin (S) [Mass/Vol] 3.9 g/dL 2.2-4.2 [facility] Urea nitrogen/Creatinine [Mass ratio] 16.4 mg/mg 10-20 [facility] Laboratory - Hematology and Cell countsOrdered By: Hector Johnson on 11-17-2023 MCH (RBC) [Entitic mass] 28.5 pg 27.0-32.0 [facility] MCHC (RBC) [Mass/Vol] 32.3 g/dL 32-36 [facility] Nucleated RBC/100 WBC (Bld) [Ratio] 0 % 0-5 [facility] Platelets (Bld) [#/Vol] 339 10*3/uL 150-450 [facility] Lipid Profileon 11-17-2023 Cholesterol [Mass/Vol] 196 mg/dL Normal 200 [facility] Comment on above: Order Comment: Order Date: 11/17/23Order Info: [id number] - CMPOrder Info: [id number] - LIPIDOrder Info: [id number] - TSH Result Comment: <200 mg/dL Desirable 200-240 mg/dL Borderline >240 mg/dL High Risk Performed By: #### L 100.0100, L500.4100, L506.1000, L501.9520, L500.4050 ####[facility] [address] [place], [address] Cholesterol in HDL [Mass/Vol] 54 mg/dL Normal [facility] Comment on above: Order Comment: Order Date: 11/17/23Order Info: [id number] - CMPOrder Info: [id number] - LIPIDOrder Info: [id number] - TSH Result Comment: The drugs N-Acetylcysteine and Metamizole may falsely depress this assay. Reference Range HDL <40 mg/dL Low HDL Cholesterol HDL >or= 60 mg/dL High HDL Cholesterol Performed By: #### L 100.0100, L500.4100, L506.1000, L501.9520, L500.4050 ####[facility] [address] [place], [address] Cholesterol in LDL [Mass/Vol] 109 mg/dL Normal 0-130 [facility] Comment on above: Order Comment: Order Date: 11/17/23Order Info: [id number] - CMPOrder Info: [id number] - LIPIDOrder Info: [id number] - TSH Performed By: #### L 100.0100, L500.4100, L506.1000, L501.9520, L500.4050 ####[facility] [address] [place], [address] Cholesterol in VLDL [Mass/Vol] 33 mg/dL Normal 5-40 [facility] Comment on above: Order Comment: Order Date: 11/17/23Order Info: [id number] - CMPOrder Info: [id number] - LIPIDOrder Info: [id number] - TSH Performed By: #### L 100.0100, L500.4100, L506.1000, L501.9520, L500.4050 ####[facility] [address] [place], [address] Triglyceride [Mass/Vol] 165 mg/dL Normal [facility] Comment on above: Order Comment: Order Date: 11/17/23Order Info: [id number] - CMPOrder Info: [id number] - LIPIDOrder Info: [id number] - TSH Result Comment: The drugs N-Acetylcysteine and Metamizole may falsely depress this assay. Serum Triglycerides Reference Interval Normal <150 mg/dL Borderline high 150 - 199 mg/dL High 200 - 499 mg/dL Very High > or = 500 mg/dL Performed By: #### L 100.0100, L500.4100, L506.1000, L501.9520, L500.4050 ####[facility] [address] [place], [address] Low density lipoprotein (LDL ) cholesterol measurementOrdered By: Hector Johnson on 11-17-2023 Cholesterol in LDL (Body fld) [Moles/Vol] 109 mg/dL 0-130 [facility] No Panel InformationOrdered By: Hector Johnson on 11-17-2023 Estimated GFR (MDRD) Amer 61 mL/min >60 [facility] Comment on above: GFR Calc Estimated GFR (MDRD) Non-Af Amer 50 mL/min >60 [facility] Comment on above: Non- GFR Calc Vitamin D 25-Hydroxy 22.4 ng/mL [facility] Comment on above: Vitamin D 25(OH) Sta tus Range Deficiency <20 ng/mL (50nmol/L) Insufficiency 20 - 30 ng/mL (50 - 75 nmol/L) Sufficiency 30 - 100 ng/mL (75 - 250 nmol/L) Toxicity >100 ng/mL (>250 nmol/L) Platelet mean volume Min-Ec ker (Bld) [Entitic vol]Ordered By: Hector Johnson on 11-17-2023 Platelet mean volume (Bld) [Entitic vol] 9.5 fL 6.2-12.0 [facility] RBC Auto (Bld) [#/Vol]Ordere d By: Hector Johnson on 11-17-2023 RBC (Bld) [#/Vol] 5.55 10*6/uL 4.2-5.4 [facility] Serum or plasma calcium alycia urement (mass/volume)Ordered By: Hector Johnson on 11-17-2023 Calcium [Mass/Vol] 9.8 mg/dL 8.5-10.1 [facility] Serum or plasma creatinine m easurement (mass/volume)Ordered By: Hector Johnson on 11-17-2023 Creatinine [Mass/Vol] 1.16 mg/dL 0.55-1.02 [facility] Comment on above: The validity of the calculated GFR & GFRAA in patients over 70 years has not been determined. Clinical correlation is essential. Serum or plasma thyroid stim ulating hormone (TSH) measurement (units/volume)Ordered By: Hector Johnson on 11-17-2023 TSH Qn 1.47 uIU/mL 0.358-3.74 [facility] Serum or plasma urea nitroge n measurement (mass/volume)Ordered By: Hector Johnson on 11-17-2023 Urea nitrogen [Mass/Vol] 19 mg/dL 7-18 [facility] Thin prep Papanicolaou smear with manual screeningOrdered By: Hector Johnson on 11-17-2023 Thin prep Papanicolaou smear with manual screening 4.2 g/dL 3.2-5.0 [facility] Thin prep Papanicolaou smear with manual screening 37 U/L 15-37 [facility] Thin prep Papanicolaou smear with manual screening 8 5-15 [facility] Thyroid Stim Hormone (TSH)on 11-17-2023 TSH 1.47 uIU/mL Normal 0.358-3.74 [facility] Comment on above: Order Comment: Order Date: 11/17/23Order Info: [id number] - CMPOrder Info: [id number] - LIPIDOrder Info: [id number] - TSH Performed By: #### L 100.0100, L500.4100, L506.1000, L501.9520, L500.4050 ####[facility] [address] [place], [address] Very low density lipoprotein (VLDL) cholesterol measurementOrdered By: Hector Johnson on 11-17-2023 Cholesterol in VLDL Calc [Moles/Vol] 33 mg/dL 5-40 [facility] Vitamin D,25 Hydroxyon 11-17 Vitamin D 25-OH 22.4 ng/mL Normal [facility] Comment on above: Order Comment: Order Date: 11/17/23 Order Info: [id number] - [id number] Result Comment: Janneth min D 25(OH) Status Range Deficiency <20 ng/mL (50nmol/L) Insufficiency 20 - 30 ng/mL (50 - 75 nmol/L) Sufficiency 30 - 100 ng/mL (75 - 250 nmol/L) Toxicity >100 ng/mL (>250 nmol/L) Performed By: #### L 100.0100, L500.4100, L506.1000, L501.9520, L500.4050 #### [facility] Laboratory [address] [place], [place], [id number] Basophil percentageon 2021 Bilirubin [Mass/Vol] 0.60 mg/dL 0.20-1.00 [facility] Work Phone: Comment on above: For patients on eltr ombopag therapy, use of Dimension Tolar TBIL is not recommended. Chloride [Moles/Vol] 106 mmol/L 98-[address] [facility] Work Phone: Cholesterol [Mass/Vol] 196 mg/dL <200 [facility] [facility] Work Phone: Comment on above: <200 mg/dL Desirable 200-240 mg/dL Borderline >240 mg/dL High Risk Glucose [Mass/Vol] 89 mg/dL 74-106 [facility] Work Phone: Potassium [Moles/Vol] 3.9 mmol/L 3.5-5.1 [address] [facility] Work Phone: Protein [Mass/Vol] 7.7 g/dL 6.4-8.2 [facility] Work Phone: [phone] Sodium [Moles/Vol] 139 mmol/L 136-145 [facility] Work Phone: [phone] Triglyceride [Mass/Vol] 154 mg/dL <199 [facility] Work Phone: [phone] Comment on above: The drugs N-Acetylcy steine and Metamizole may falsely depress this assay.Serum Triglycerides Reference Interval Normal <150 mg/dL Borderline high 150 - 199 mg/dL High 200 - 499 mg/dL Very High > or = 500 mg/dL Laboratory - Chemistry and C hemistry - challengeon 04-29-2022 ALP [Catalytic activity/Vol] 100 U/L 45-117 [facility] Work Phone: ALT [Catalytic activity/Vol] 30 U/L 13-56 [facility] Work Phone: CO2 [Moles/Vol]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 172/113 Pulse: 102 Temp: 98.4 degrees F (36.9 degrees C) TempSrc: Infrared Weight: 94.8 kg (209 lb) Height: 1.676 m (5' 6) Daria Alvarez is a well appearing 63 [...] Finger Abductor 5 5 Quadriceps 2 2 Production Counter 5 5 Ankle 2 2 Hip Flexor [...] Mobility: wheelchair Gait: Timed 25 Foot Walk: 01/08/24 Studies: MRI Information: I personally reveiwed the following images: MRI 12/17/23 with 1 punctate enhancing lesion among nonenhancing lesions Labs and diagnostics studies personally reviewed, notable [...] and has been wheelchair bound since 2022. Patient is unable to stand from a regular chair/bed independently. She deferred PT initially but I strongly encouraged PT and she will reconsider. She has only been on mitoxantrone in the and was lost to follow up from 2003 until 2023. She deferred AFOs for now. She has an enhancing lesion per report from 11/2023 so we will repeat her scan in 6 months, and if there's still ongoing disease activity then we will need to restart DMTs. Summary: - PT recommended - Repeat MRI brain in 6 months - Follow up with urology - Refer to Aging with MS clinic - Return in 6 weeks A total of 40 minutes was spent on this visit. Rachell Hightower MD Extractions Technologist of Neurology Division of MS/Neuroimmunology documented in this encounter [facility] 01-04-2024 History of Present illness Narrative Images from the original note were not included. NEUROPSYCHOLOGY FEEDBACK NOTE Name: Daria Alvarez Date of : 1960 Dates of Evaluation: 12/28/2023 (Interview and Testing); 01/04/2024 (Testing and Feedback) Date of Report Completion: 02/01/2024 and recommendations of the evaluation on 01/04/2024. They asked appropriate follow-up questions and voiced an adequate understanding of the results. They were encouraged to contact this provider should they have any questions related to the evaluation at any point in the future. Of note, she also provided verbal permission for this provider to speak with her daughters (Riya Alvarez and Rosenda Harman) if necessary. If I can be of further assistance, please feel free to contact me. Crystal Kentil, Ph.D. Clinical Neuropsychologist Extractions Technologist [facility] CPT code: 34959 (additional unit) Time: 12:36 - 1:45 PM ICD-10 Code: R41.3 Memory loss documented in this encounter [facility] 12-28-2023 History of Present illness Narrative I administered neuropsychological tests to Daria Alvarez. Direct time spent with the patient for neuropsychological testing was 87 minutes. An additional 23 minutes was spent scoring and documenting the results. Images from the original note were not included. NEUROPSYCHOLOGY REPORT Name: Daria Alvarez Date of : 1960 Dates of Evaluation: 12/28/2023 (Interview and Testing); 01/04/2024 (Testing and Feedback) Date of Report Completion: 02/01/2024 Reason for Referral: Ms. 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 She was referred for neuropsychological evaluation by her Neurologist, Dr. Rachell Hightower, to assess current cognitive status within the context of a history of multiple sclerosis (MS). Her , Pepito, participated in the clinical interview and feedback portions of the evaluation and provided additional information, with her permission. Ms. Alvarez was informed of the nature and purpose of the evaluation and the intended use of the results. She expressed understanding and consented to participate. This report was prepared as part of a clinical evaluation and is not intended for forensic use. Medical History: NEUROLOGIC: Ms. Alvarez reported onset of neurologic symptoms in 1982 characterized by dizziness and loss of vision. She was not formally diagnosed with MS until 1991. Ms. Alvarez and her did not endorse any true exacerbation/relapse over time, but rather noted slow/gradual progression of symptoms, more noticeable over the past two years. 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 She was previously treated with mitoxantrone and is not presently on any disease modifying treatments. She was most recently seen in consultation with Neurology on 11/27/2023 at which time ongoing symptoms included short-term memory loss and difficulty walking (wheelchair bound since 2022) due to weakness. Additional referrals included updated neuroimaging, physical therapy, PM&R referral for AFO and rehabilitation needs, urology, multidisciplinary clinic, social work, and neuropsychological evaluation. The most recent MRI dated 12/17/2023 reflected moderate periventricular white matter disease consistent with her history of MS as well as an isolated punctate focus of enhancement in the left precentral gyrus that may represent active demyelination. GENERAL: Additional medical history includes bladder incontinence, hip surgery, and cholecystectomy. Immediate family medical history includes lupus in her mother and thyroid disease in her daughter. MEDICATIONS currently include baclofen. Recent Functioning: Ms. Alvarez and her spouse endorsed cognitive changes primarily involving problems with learning and memory (requiring repetition of information, recalling events and conversations, remembering appointments). They also described word-finding difficulty, problems organizing her thoughts, inability to multitask, reduced processing speed, as well as problems planning ahead and making decisions. Functionally, she lives with her spouse and other family members, and although they reported that she completes basic activities of daily living independently from a cognitive perspective, she requires assistance with dressing due to physical limitations. Similarly, they reported that she requires assistance with household activities and meal preparation/cooking primarily due to physical reasons. They jointly manage the family finances. Ms. Alvarez is only prescribed baclofen, but her described her as stubborn as reasons for inconsistent usage. She stopped driving approximately 6-8 months ago due to mobility issues and inability to see at night. Physically, she endorsed intermittent left eye blurriness, feeling dizzy/lightheaded, numbness and weakness, difficulty starting to move, reduced fine motor dexterity, walking more slowly/stiffly, bumping into things, problems with balance/coordination, and frequent falls. Upon further questioning, Ms. Alvarez reported that she is unable to walk (progressive worsening) and currently has to pick her leg up in order to move it. Other physical/sensory changes were denied. Emotionally, Ms. Alvarez reported that she is doing really well in terms of her mood and she denied feeling hopeless, helpless, or experiencing any thoughts of self-harm. Her did acknowledge perceived frustration related to her physical limitations. Ms. Alvarez sleeps in a chair given her inability to get up, but she denied any problems with sleep initiation or maintenance. She obtains approximately six hours of sleep nightly and denied notable fatigue during the day. Other Relevant Psychosocial History: Developmental history is unremarkable. She graduated from high school with additional training in stenography. There is no history of formally diagnosed learning disability, grade retention, or receipt of special education services; however, Ms. 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 She worked until she was granted disability in 2003 due to physical limitations related to MS. She has been for 42 years and has five adult children. Ms. Alvarez has a history of depression and was previously prescribed Xanax and Cymbalta. She is not presently on any medications for mood. There is no history of substance abuse concerns. Administration: History Form/Clinical Interviews* Orientation Questions* Clock Drawing* Flores-Odom Executive Function System (D-KEFS): Color-Word Interference Test* [place] Naming Test (BNT)* Controlled Oral Word Association Test (COWAT)* Animal Fluency Test* Judgment of Line Orientation (JoLO)* Auditory Comprehension* Test of Premorbid Functioning (TOPF) Abby Adult Intelligence Scale - 4th Edition (WAIS-IV): Digit Span, Matrix Reasoning* Thiago Auditory Verbal Learning Test (RAVLT) Brief Visuospatial Memory Test - Revised (BVMT-R) [place] Making Test, Parts A & B Symbol-Digit Modalities Test (SDMT) - Written and Oral versions Thiago-Osterrieth Complex Figure - Copy only Edwards Depression Inventory - 2nd Edition (BDI-2) Edwards Anxiety Inventory (SEBASTIEN) Fatigue Severity Scale *Data summary sheet can be made available upon request to appropriately trained professionals to allow for any future test-retest comparison. Range description labels based on AACN conference statement (Guilmette et al., 2020). Note that most normative data are based on monolingual Italian-speaking [place] adults. (*=PhD administered; all remaining tests administered by polysomnographic technician). Behavioral Observations: Ms. Alvarez arrived for today's evaluation on time and was accompanied by her . She was appropriately dressed and groomed and she utilized a wheelchair for mobility purposes. She wore glasses for reading and she denied significant problems hearing. Affect was full and appropriate to setting; mood appeared euthymic overall. Throughout the clinical interview, she often looked to her to answer questions in more detail on her behalf. During testing, she was spontaneously oriented to all spheres. She worked through tasks very slowly and required repetition of task instructions/clarification in order to complete tasks appropriately. She often repeated herself without apparent awareness of her mistakes. Interpersonally she was appropriate and friendly but generally soft-spoken overall. Neuropsychological Test Results Ms. Montgomerys performances across performance validity tasks were variable; however, considering all available information, results are generally believed to be an accurate representation of current cognitive status. Baseline functioning based on demographic information in conjunction with performance on a word reading test and on a measure of visual abstract reasoning was estimated to be within the low average/average range. Within that context, Ms. Montgomerys performances across tasks of auditory attention and working memory were highly variable. Scores were exceptionally low (sequencing digits in ascending order), below average (sequencing digits in a forward manner), and below average/low average (sequencing digits in a backward manner). Her performances across most processing speed tasks were exceptionally low (speeded color naming and word reading, written and oral symbol-digit coding) with the exception of one low average score on a measure involving visual scanning and gross motor sequencing. Basic visuospatial abilities were below expectations based her clock drawing (significant spacing issues with several gaps), ability to copy a series of geometric shapes (no gross misperceptions but inattention to detail), and ability to jailkeeper the orientation of lines (qualitatively, answered less than half the items correctly). Her performances across language-based tasks were also generally below expectations: exceptionally low performance on a semantic verbal fluency task; exceptionally low/below average performance on a confrontation naming measure (with both semantic and phonemic paraphasic errors noted), and below average performance on a task assessing phonemic verbal fluency. In terms of auditory learning and memory, initial registration of information presented in list format (i.e., rote verbal learning) was exceptionally low, with minimal learning across five trials. She was unable to recall any words on an interference trial (exceptionally low) and following a delay, spontaneous recall was exceptionally low/below average. Her ability to discriminate amongst target and distractor items within a recognition paradigm was exceptionally low (recognition %, with 9 false positive errors). Similarly, on a serial visual learning task, initial registration for this visual information was exceptionally low with no evidence of learning across repeated trials. Following a delay, spontaneous recall for this information was exceptionally low, and she had difficulty discriminating amongst target and distractor items within a recognition paradigm with 2 false positive errors. Performances on measures assessing executive functions ranged from exceptionally low (inhibition/switching, cognitive flexibility/rapid set-shifting - unable to complete) to low average (inhibition, visual abstract reasoning). Observationally, she exhibited significant evidence of deficits in planning and organization as demonstrated by her construction of a clock with inability to set the hands to the specified time (x2). Importantly, her construction of a complex geometric shape was characterized by a notable piecemeal approach, with significant deficits in planning and organization. Emotionally, she endorsed moderate symptoms of both depression and anxiety on self-report measures of mood. Depressive symptoms included a focus on past failure, self-dislike and self-criticalness, fatigue, feelings of worthlessness, and loss of energy, among others. Symptoms of anxiety included wobbliness, fearing the worst happening, fear of losing control, and inability to relax among numerous other physical symptoms. She also completed a self-report inventory assessing severity of fatigue and her responses were commensurate with what is typical for an MS population overall; she endorsed fatigue as being one of her most disabling symptoms and interfering with social activities and successful completion of instrumental tasks. Summary and Impressions: Ms. Daria Alvarez is a 63-year-old woman referred for neuropsychological evaluation by her Neurologist, Dr. Rachell Hightower, to assess current cognitive status within the context of a history of multiple sclerosis (MS). Within the context of low average/average estimate baseline, she demonstrated relative weaknesses/inefficiencies with regard to attention and working memory. Very basic visual abilities were grossly adequate; however, she exhibited notable difficulty as task complexity increased (i.e., integration deficits, problems with planning/organization). Performances were also below expectations across tasks related to processing speed, language, most executive functions, and learning and memory. Her profile reflected notable difficulty with learning new information, with limited her memory performances as a result. She endorsed moderate symptoms of both anxiety and depression. Taken together, results are consistent with a major neurocognitive disorder. Given her profile, I would expect more difficulty with completion of complex functional tasks from a cognitive perspective; however, she and her are noting physical limitations as the primary interfering factor for completion of such tasks. Overall, primary etiology is believed to be her more than 30-year history of MS; however, the possibility of a neurodegenerative condition as an additional contributing factor cannot be fully ruled out. Several recommendations were offered during a feedback session with Ms. Alvarez and her that are provided in detail below. Recommendations: Management of Medical Factors: Regular follow-up with her medical providers is recommended in order to maximize health outcomes. In particular, follow-up with neurology is strongly encouraged given progression of symptoms, most notable within the past two years per patient and family report. Ms. Alvarez exhibited significant visuospatial/visuoperceptual deficits and she is strongly encouraged to have her vision evaluated to formally rule out any deficits with the eye itself. Given endorsement of moderate symptoms of depression and anxiety in combination with notable emotionality during feedback, it will be important to continue to monitor her mood considering that mood can also negatively impact cognition. Compensatory Strategies: Ms. Alvarez exhibited notably slowed processing speed overall as well as variable working memory abilities. As such, she is likely to require additional time to complete tasks. Information should be presented at a slower rate, and broken down into smaller, more manageable parts so as not to overwhelm her. This difficulty may also present itself during conversations, and it will be important for others to ensure that she has enough time to process the information being presented, formulate her own responses, and answer questions in order to remain involved in the conversation. Planning additional time at the outset of completing a task is also likely to manage the frustration that can be associated with reduced processing speed. Ms. Alvarez demonstrated deficits with complex attention and set-shifting, and she should avoid multi-tasking whenever possible. She will likely also benefit from breaking down tasks into component parts, and progressing from the easiest to most complex components. In general, directions should be kept simple and direct. Given prominent observed and reported deficits with regard to learning and subsequent memory performances, it is recommended that she utilize external cues and reminders as aids, and involve family and/or trusted others in ensuring important tasks are completed. Incorporating use of a calendar in the home environment is recommended, and she should be encouraged to take part in maintaining this calendar with assistance from family (i.e., writing down important appointments, crossing off the days to help keep track, etc.). Wall calendars are optimal given a fixed location, and she would be encouraged to make this calendar part of her daily routine (i.e., looking at it upon waking and/or just before going to bed). A general strategy for family would be to gently provide the correct information to her, but change the subject if met with frustration. She acknowledged word-finding difficulty during the clinical interview, which was also noted on objective testing. As such, she is encouraged to develop a plan with those around her to determine the most appropriate course of action. As an example, some individuals prefer that others immediately step in and provide assistance, whereas in other instances, it is preferred that additional time be provided so that the individual can attempt to generate the word on his or her own. The goal is to minimize frustration, which in turn, can make communicating even more difficult. She may find it more challenging to incorporate new changes into her already established routine and would benefit from increased supervision for any new task. In general, the goal is to provide increasing level of support as needed, with a focus on maximizing her independence while at the same time ensuring safety. Driving: She is not presently driving, which she and her attributed to physical limitations; current cognitive test data would also support that she abstain from driving in the future given deficits across domains important for driving (processing speed, visuospatial skills, executive functioning, and variable attention/working memory abilities). General Health Behaviors: Ms. Alvarez is encouraged to engage in a healthy lifestyle including continued management for medical needs, socialization (e.g., engaging in social activities with friends and family), and physical activity in order to optimize daily functioning. It will also be important for her to be able to identify personal values and establish activities that will allow her to continue to experience a sense of meaning and fulfillment. Resources for Future Reference: Providing significant care to a loved one is a demanding, difficult and potentially stressful endeavor, particularly when managing medical needs. Family should be aware of the risks of experiencing burnout, fatigue, depression, or other psychological disturbances so that they can seek support either preventatively or if these problems occur in the future. Given the need for current functional assistance, it is likely that Ms. Alvarez will continue to benefit from supervision, and may require a higher level of supervision as time progresses. Family is strongly encouraged to continue to provide assistance in these areas. Family Caregiver [place] is a website that provides information for both caring for a loved one and caring for the caregiver: https://www.caregiver.org This service of the Administration on Aging offers information about community services offered by state and [facility] Agencies on Aging: https://eldercare.acl.gov Note: Ms. Alvarez and her were provided with feedback regarding the results and recommendations of the evaluation on 01/04/2024. They asked appropriate follow-up questions and voiced an adequate understanding of the results. They were encouraged to contact this provider should they have any questions related to the evaluation at any point in the future. If I can be of further assistance, please feel free to contact me. Crystal Mart, Ph.D. Clinical Neuropsychologist Extractions Technologist [facility] CPT Code Description Minutes Billed 54619/[id number] Neurobehavioral status exam 50 64518/87776 Neuropsychological test administration and scoring, by Neuropsychologist 50 85255/68681 Neuropsychological test administration and scoring, by polysomnographic technician 110 12681/[id number] Neuropsychologist integration (including interpretation, and report writing) 125 ICD-10 Code: R41.3 Memory loss documented in this encounter [facility] 12-01-2023 Miscellaneous Notes Patient calls back and states that she is seeing someone from [facility] for neurology and MS diagnosis. Augustina Garcia RN TC to pt with no answer, left VM to return call. Magalie Canela LPN TC to patient with no answer. Left VM to return call to office. Received referral from [facility] for patient to be seen for MS. Patient previously seen in the clinic in 2003 for this. Patient will need to schedule with [facility]. Referral scanned to patients chart. YI Killian documented in this encounter [facility] 11-27-2023 History of Present illness Narrative [facility] Department of Neurology [address] [place] [address] Neuroimmunology new patient visit Daria Alvarez is a 63 y.o. female referred by Ha Singh MD, PhD for MS History of [...] get treated back then. 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 Rachell Hightower MD Extractions Technologist of Neurology Division of MS/Neuroimmunology documented in this encounter [facility] 11-27-2023 Instructions Rachell Hightower MD - 11/27/2023 1:30 PM EST - MRI brain and spine - Physical therapy - Referral to physical medicine and rehab for equipment and foot brace - Referral to urology - Refer to Aging with MS clinic - Referral to social service liaison - Neuropsych testing documented in this encounter [facility] 10-24-2021 SARS-CoV RNA JOSE+ probe Ql (Unsp spec) [facility] Work Phone: Coronavirus 2019 (JOSE) October 25, 2021 12:59am Detected Not Detected Patients who have a positive COVID-19 test result may nowhave treatment options. Treatment options are available forpatients with mild to moderate symptoms and forhospitalized patients. Visit our website [email or web address] for resources andinformation.This nucleic acid amplification test was developed and itsperformance characteristics determined by [employer]. Nucleic acid amplification tests include RT-PCR and TMA. This test has not been FDA cleared orapproved. This test has been authorized by FDA under anEmergency Use Authorization (EUA). This test is onlyauthorized for the duration of time the declaration thatcircumstances exist justifying the authorization of theemergency use of in vitro diagnostic tests for detection [id number]-FpV-0 virus and/or diagnosis of COVID-19 infectionunder section 564(b)(1) of the Act, 21 U.S.C. 360bbb-3(b)(1), unless the authorization is terminated or revokedsooner.When diagnostic testing is negative, the possibility of afalse negative result should be considered in the contextof a patient's recent exposures and the presence ofclinical signs and symptoms consistent with COVID-19. Anindividual without symptoms of COVID-19 and who is notshedding SARS-CoV-2 virus would expect to have a negative(not detected) result in this assay. Comment on above: Patients who have a positive COVID-19 test result may nowhave treatment options. Treatment options are available forpatients with mild to moderate symptoms and forhospitalized patients. Visit our website [email or web address] for resources andinformation.This nucleic acid amplification test was developed and itsperformance characteristics determined by [employer]. Nucleic acid amplification tests include RT-PCR and TMA. This test has not been FDA cleared orapproved. This test has been authorized by FDA under anEmergency Use Authorization (EUA). This test is onlyauthorized for the duration of time the declaration thatcircumstances exist justifying the authorization of theemergency use of in vitro diagnostic tests for detection [id number] virus and/or diagnosis of COVID-19 infectionunder section 564(b)(1) of the Act, 21 U.S.C. 360bbb-3(b)(1), unless the authorization is terminated or revokedsooner.When diagnostic testing is negative, the possibility of afalse negative result should be considered in the contextof a patient's recent exposures and the presence ofclinical signs and symptoms consistent with COVID-19. Anindividual without symptoms of COVID-19 and who is notshedding SARS-CoV-2 virus would expect to have a negative(not detected) result in this assay. Evaluation note No assessment information availa [facility] Work Phone: Evaluation note Diagnosis Secondary progressive multiple sclerosis- Primary Multiple sclerosis [facility] Diagnosis Secondary progressive multiple [facility]- Primary [facility] loss- [facility] Memory loss- [facility] Consultation (Routine) - New Request Specialty Diagnoses / Procedures Referred By Sumeet merchant Referred To Contact Psychiatry Diagnoses Secondary progressive multiple sclerosis Rachell Hightower MD [address] [place] [address] Referral ID Status Reason Start Date Expiration Date V isits Requested Visits Authorized [id number] New Request 11/27/2023 12/21/2024 1 1 * Adjunctive Therapy (Routine) - New Request Specialty Diagnoses / Procedures Referred By Sumeet merchant Referred To Contact Social Work Diagnoses Secondary progressive multiple sclerosis Rachell Hightower MD [address] [place] [address] Referral ID Status Reason Start Date Expiration Date V isits Requested Visits Authorized [id number] New Request 11/27/2023 12/21/2024 1 1 * Adjunctive Therapy (Routine) - New Request Specialty Diagnoses / Procedures Referred By Sumeet merchant Referred To Contact Physical Medicine & Rehabilitation Diagnoses Secondary progressive multiple sclerosis Rachell Hightower MD [address] [place] [address] Referral ID Status Reason Start Date Expiration Date V isits Requested Visits Authorized [id number] New Request 11/27/2023 12/21/2024 1 1 * Consultation (Routine) - New Request Specialty Diagnoses / Procedures Referred By Sumeet merchant Referred To Contact Urology Diagnoses Secondary progressive multiple sclerosis Rachell Hightower MD [address] [place] [address] Referral ID Status Reason Start Date Expiration Date V isits Requested Visits Authorized [id number] New Request 11/27/2023 12/21/2024 1 1 * Consultation (Routine) - New Request Specialty Diagnoses / Procedures Referred By Sumeet merchant Referred To Contact Neurology Diagnoses Secondary progressive multiple sclerosis Rachell Hightower MD [address] [place] [address] Referral ID Status Reason Start Date Expiration Date V isits Requested Visits Authorized [id number] New Request 11/27/2023 12/21/2024 1 1 * Adjunctive Therapy (Routine) - New Request Specialty Diagnoses / Procedures Referred By Sumeet merchant Referred To Contact Physical Therapy Diagnoses Secondary progressive multiple sclerosis Rachell Hightower MD [address] [place] [address] Referral ID Status Reason Start Date Expiration Date V isits Requested Visits Authorized [id number] New Request 11/27/2023 12/21/2024 1 1 Scheduling Instructions [facility] [place] (Orthopedic, Sports Rehab) [address], [address], [place] [address] Outpatient Care [place] (Burn, Neurological, Orthopedic, Pelvic Health, Sports Rehab) [address] [place] [address], [address], [place] [address] Outpatient Care [facility] (Orthopedic Rehab) [address], [address], [place] [address] Outpatient Care [place] (Orthopedic, Pelvic Health, Sports) [address] [facility] [address] [facility] [address], [address], [place] [address] Outpatient Care [facility] Pelvic Health [address] [facility], [address], [place] [address] Outpatient Care [place] (Orthopedic, Pelvic Health, Sports Rehab) [address], [address], [place] [address] Outpatient Care [facility] (Aquatic, Burn, Neurological, Orthopedic, Pelvic Health Rehab) [address], [facility] [address], [place] [address] Outpatient Care [place] (Burn, Neurological, Orthopedic, Pelvic Health, Sports Rehab) [address], [place] [address] Outpatient Rehabilitation [facility] (Burn, Neurological, Orthopedic Rehab) [address] [place] [address] Outpatient Rehabilitation [facility] (Aquatic, Burn, Neurological, Orthopedic, Pelvic Health Rehab) [address], [place] [address] Outpatient Rehabilitation [place] (Burn, Neurological, Orthopedic Rehab) [address] [place] [address] Sports Medicine Rehabilitation at [facility] (Orthopedic, Sports Rehab) [address] [facility], [address], [place] [address] Sports Medicine Rehabilitation [facility] (Orthopedic, Sports Rehab) [address] , [place] [address] [facility] (Orthopedic, Sports Rehab) [address] , [place] [address] Sports Medicine Rehabilitation [facility] (Aquatic, Orthopedic, Pelvic Health, Sports Rehab) [address], [place] [address] Sports Medicine Rehabilitation [facility] (Orthopedic, Sports Rehab) [address] [place] [address] Sports Medicine Rehabilitation [facility] (Orthopedic, Sports Rehab) [address] [facility] [address] [facility], [address], [place] [address] * MRI/CAT Scan (Routine) - New Request Specialty Diagnoses / Procedures Referred By Contac t Referred To Contact Diagnoses Secondary progressive multiple sclerosis Procedures MRI SPINE THORACIC WITH AND WITHOUT CONTRAST IA MRI, DORSAL SPINE Rachell Riggins MD [address] [place] [address] Referral ID Status Reason Start Date Expiration Date V isits Requested Visits Authorized [id number] New Request 11/27/2023 12/21/2024 1 1 * MRI/CAT Scan (Routine) - New Request Specialty Diagnoses / Procedures Referred By Contac t Referred To Contact Diagnoses Secondary progressive multiple sclerosis Procedures MRI SPINE CERVICAL WITH AND WITHOUT CONTRAST IA MRI, CERV SPINE Rachell Riggins MD [address] [place] [address] Referral ID Status Reason Start Date Expiration Date V isits Requested Visits Authorized [id number] New Request 11/27/2023 12/21/2024 1 1 * MRI/CAT Scan (Routine) - New Request Specialty Diagnoses / Procedures Referred By Sumeet t Referred To Contact Diagnoses Secondary progressive multiple sclerosis Procedures MRI BRAIN WITH AND WITHOUT CONTRAST IA MRI BRAIN Rachell Riggins MD [address] [place] [address] Referral ID Status Reason Start Date Expiration Date V isits Requested Visits Authorized [id number] New Request 11/27/2023 12/21/[address] [facility] Chief Complaint and Reason for Visit Chief Complaint fall LLE PAIN & SWELLING LEG PAIN / RX HERE Chief Complaint LEG PAIN / RX HERE Chief Complaint MS Chief Complaint MS F/U Advance Directives No Advanced Directives Records Found Advance Directive Response Recorded Date/ Time Advance Directives No April 23 12:41pm Living Will No October 22, 2 021 7:48pm Power of Bulk Plant Manager No October 22, 2021 7:48pm Advance Directive Response Recorded Date/ Time Advance Directives No April 23 11:41am Living Will No October 22, 2 021 6:48pm Power of Bulk Plant Manager No October 22, 2021 6:48pm Summary Purpose Family History No Family History Records FoundNo Family History Records FoundNo Family History Records Found Reason for Referral Specialty Diagnoses / Procedures Referred By Sumeet merchant Referred To Contact Diagnoses Secondary progressive multiple sclerosis Procedures MRI BRAIN WITH AND WITHOUT CONTRAST IA MRI BRAIN Rachell Riggins MD [address] [place] [address] Referral ID Status Reason Start Date Expiration Date V isits Requested Visits Authorized [id number] New Request 01/08/2024 02/01/2025 1 1 Specialty Diagnoses / Procedures Referred By Sumeet merchant Referred To Contact Neurology Diagnoses Secondary progressive multiple sclerosis Rachell Hightower MD [address] [place] [address] [place] [address] Referral ID Status Reason Start Date Expiration Date V isits Requested Visits Authorized [id number] New Request 01/08/2024 02/01/2025 1 1 Additional Source Comments Goals (unrecognized section and content) Goals may be documented in a n alternate sectionGoals may be documented in an alternate sectionGoals may be documented in an alternate sectionGoals may be documented in an alternate section Care Teams (unrecognized sec tion and content) Team Status: Active Member Role Status Dates Dr. David Shah MD Family Provider Active Hector Johnson MD Primary Care Provider Active Team Status: Active Member Role Status Dates Hector Johnson MD Primary Care Provide r, Attending Provider, Referring Provider Active Team Status: Inactive Member Role Status Dates Hector Johnson MD Primary Care Provide r, Attending Provider, Referring Provider Active Team Status: Inactive Member Role Status Dates Hector Johnson MD Primary Care Provider Active SABINO PATTON Attending Provider, Referring Provider Ac tive Reason for Visit (unrecogniz ed section and content) Reason Comments New Patient Specialty Diagnoses / Procedures Referred By Contac t Referred To Contact Neurology Diagnoses MS (multiple sclerosis) Ha Singh MD, PhD [address] [place] [phone] [facility] [address] [place] [address] Referral ID Status Reason Start Date Expiration Date Visits Re quested Visits Authorized [id number] Denied 03/09/2023 04/02/2024 1 0 Reason Comments Consult Reason Comments Follow-up Specialty Diagnoses / Procedures Referred By Contac t Referred To Contact Neurology Diagnoses 6 week follow up Procedures RETURN PATIENT Self, Self Rachell Hightower MD [address] [place] [address] Referral ID Status Reason Start Date Expiration Date Visits Re quested Visits Authorized [id number] Denied 01/08/2024 02/01/2025 1 0 Reason Comments Neuropsychological Testing Specialty Diagnoses / Procedures Referred By Contac t Referred To Contact Neurology Diagnoses Secondary progressive multiple sclerosis Neurology Outpatient Care [facility] [address] [facility] [address] [place] [address] Neurology Outpatient Care [facility] [address] [facility] [address] [place] [address] Referral ID Status Reason Start Date Expiration Date Visits Re quested Visits Authorized [id number] Denied 11/27/2023 12/21/2024 1 0 Reason Comments Follow-up Specialty Diagnoses / Procedures Referred By Sumeet merchant Referred To Contact Psychology / Neurology Diagnoses Can we schedule Daria for her feedback next Thursday at 1 please? Thank you! Procedures FEEDBACK TESTING Crystal Mart, PhD [address] [place] [address] Referral ID Status Reason Start Date Expiration Date Visits Re quested Visits Authorized [id number] Denied 01/04/2024 01/28/2025 1 0 Source Comments (unrecognize d section and content) In the event this informatio n is protected by the Federal Confidentiality of Alcohol and Drug Abuse Patient Records regulations: The Federal rules restrict any use of the information to criminally investigate or prosecute any alcohol or drug abuse patient.[facility] INFORMATION SOURCE (unrecogn ized section and content) DATE CREATED AUTHOR 12/03/2023 [facility] DATE CREATED AUTHOR AUTHOR'S ORGANIZ ATION 02/13/2024 [facility] DATE CREATED AUTHOR AUTHOR'S ORGANIZ ATION 2024 [facility] FOR RECORDS PERTAINING TO PATIENTS WHO ARE [...] BE BASED ON THE PRIMARY CLINICAL RECORDS. [employer] provides no warranty or guarantee of the accuracy or completeness of information in this document.
[2025-03-29 23:00] VITALS: BP 145/87; PULSE 93; PULSE 97; RESP 15; RESP 19; O2SAT 96; O2SAT 97
--- NOTE | 2025-03-29 23:05 | RAD_ITS ---
PROCEDURE: CHEST 1 VIEW (PORTABLE) 03/29/2025 REASON FOR EXAM: CHEST PAIN TECHNIQUE: Frontal view of the chest. COMPARISON: None. FINDINGS: The heart is normal in size. The mediastinum is normal in contour. The lungs are clear. No acute osseous abnormalities. RAD/Chest 1 View (Portable) IMPRESSION: No Acute Findings. Reading Location: [place] [id number]
[2025-03-29 23:08] LABS: Absolute Lymphocyte Count 2.17 X10^3/uL (0.83-4.51); Absolute Neutrophil Count 6.6 X10^3/uL (2.0-7.7); Basophil# 0.07 X10^3/uL; Basophil% 0.7 % (0-1); Eosinophil# 0.24 X10^3/uL; Eosinophils% 2.5 % (0-5); Hematocrit 44.2 % (37-47); Hemoglobin 15.2 g/dL (12.0-15.0); Lymphocyte # 2.17 X10^3/ul (0.83-4.51); Lymphocyte % 22.4 % (19-41); Mean Corp Hgb Conc 34.4 g/dL (32-36); Mean Corpuscular Hgb 30.7 pg (27.0-32.0); Mean Corpuscular Volume 89.3 fL (81-99); Mean Platelet Vol. 9.4 fl (6.2-12.0); Monocyte# 0.57 X10^3/uL; Monocyte% 5.9 % (0-10); NRBC Flagged by Analyzer 0 % (0-5); Neutrophil # 6.59 X10^3/uL (2.7-7.7); Platelet Count 269 K/mm3 (150-450); RBC Distribution Width CV 13.1 % (11.6-14.6); RBC Distribution Width SD 42.6 fl (35.1-43.9); Red Blood Count 4.95 M/mm3 (4.2-5.4); White Blood Count 9.7 K/mm3 (4.4-11.0)
[2025-03-29] MEDS: Ondansetron 4 MG/2 ML Vial IV (23:25)
[2025-03-29 23:34] LABS: Anion Gap 13 (5-15); BUN 11 mg/dL (4-19); BUN/Creat Ratio 12.4 RATIO (10-20); Calcium,Total 8.9 mg/dL (7.6-11.0); Chloride 105 mmol/L (98-108); EST Glomerular Filtration Rate 71 (>60); Estimated Creatinine Clearance 70.04 ml/min (50-250); Glucose 125 mg/dL (70-99); Magnesium 2.2 mg/dL (1.5-2.2); Potassium 4.3 mmol/L (3.3-5.1); Sodium Level 139 mmol/L (133-145); Troponin T High Sensitivity 15 ng/L (<=14)
[2025-03-30] VITALS: BP 192/165; PULSE 90; RESP 20; O2SAT 95
[2025-03-30 00:10] LABS: D-Dimer Quantitative (DVT/PE) < 0.27 FEU/ug/m (0.27-0.49)
[2025-03-30 01:00] VITALS: BP 128/78; PULSE 100; RESP 18; O2SAT 98
[2025-03-30 01:33] LABS: Troponin T High Sens 2 HR 15 ng/L (<=14)
[2025-03-30 02:00] VITALS: BP 109/58; PULSE 64; RESP 18; O2SAT 98
--- NOTE | 2025-03-30 02:10 | EX.ED.DYSGE1 ---
HPI History of Present Illness Chief Complaint: Chest Pain Informant: patient, spouse/S.O. and family Narrative Narrative: Patient is a 64-year-old female with past medical history of multiple sclerosis hypertension and depression. She states that she was sitting this evening roughly a few hours prior to arrival when she noticed a vague discomfort across the anterior mid chest. She states that there is no radiation of the pain and she denies any nausea vomiting or diaphoresis. She does report she felt slightly short of breath with it. She denies any palpitations. She states she has not been sick in any way recent fevers chills cough or congestion. She states because of her MS she is not ambulatory and there has been no recent trauma or falls. She denies any family history of coronary artery disease but based on her chest discomfort there was concern for this and therefore she comes in for evaluation [facility] Medical History (Updated 03/30/25 @ 05:[address] Nba Wallace, DO) Family history of MS (multiple sclerosis) History of multiple sclerosis Depression Hypertension Home Medications ?Medication ?Instructions ?Recorded ?Last Taken ?Type amlodipine 10 mg tablet 10 mg PO DAILY #30 tabs 06/30/24 Unknown Rx carvedilol 6.25 mg tablet (Coreg) 6.25 mg PO BID #60 tabs 06/30/24 Unknown Rx ciprofloxacin HCl 500 mg tablet 500 mg PO BID #6 tabs 06/30/24 Unknown Rx duloxetine 60 mg capsule,delayed 60 mg PO DAILY #30 caps 06/30/24 Unknown Rx release Allergy/AdvReac Type Severity Reaction Status Date / Time morphine Allergy Chest Verified 03/29/25 21:57 tightness Family History Other Cancer Lupus Porphyria Surgical History Hx of bilateral breast reduction surgery History of total replacement of both hip joints Hx of cholecystectomy Hx of appendectomy Social History household members: spouse Smoking Status: Never smoker ROS ROS ED Constitutional Constitutional ED: Denies chills or fever(s) ENT ENT ED: Denies sore throat Cardiovascular Cardiovascular: Reports chest pain; Denies palpitations or racing heartbeat Respiratory/Chest Respiratory/Chest: Denies cough or dyspnea Gastrointestinal Gastrointestinal: Denies abdominal pain, diarrhea, nausea or vomiting Genitourinary Genitourinary ED: Denies dysuria Musculoskeletal Musculoskeletal: Denies back pain Integumentary Denies rash Neurologic Neurologic: Denies headache(s) Hematologic/Lymphatic Hematologic/Lymphatic: Denies easy bleeding or easy bruising EXAM Physical Exam Const Vital Signs: 03/29/25 21:57 03/29/25 21:57 03/29/25 22:57 Temperature 98.5 F Temperature Source Oral Pulse Rate 108 H 91 Respiratory Rate 18 18 Respiratory Effort Normal Non-Labored Blood Pressure 152/99 H 145/87 H Blood Pressure Mean 116 106 Pulse Ox 97 97 Oxygen Delivery Method Room Air Room Air 03/29/25 23:00 03/29/25 23:00 03/30/25 00:00 Temperature Temperature Source Pulse Rate 93 97 90 Respiratory Rate 15 19 H 20 H Respiratory Effort Blood Pressure 145/87 H 192/165 H Blood Pressure Mean 106 174 Pulse Ox 97 96 95 Oxygen Delivery Method 03/30/25 01:00 03/30/25 02:00 03/30/25 03:01 Temperature 98.3 F Temperature Source Pulse Rate 100 64 64 Respiratory Rate 18 18 18 Respiratory Effort Blood Pressure 128/78 H 109/58 L 109/58 L Blood Pressure Mean 94 75 75 Pulse Ox 98 98 98 Oxygen Delivery Method Positive well nourished and well developed General Appearance ED: well developed HEENT HEENT Narrative: Normocephalic atraumatic Eyes PERRL and EOMs intact bilaterally General Eye ED: Negative for scleral icterus Neck supple and no JVD Neck Narrative: No nuchal rigidity or meningeal signs Chest Wall Chest Narrative: There is reproducible midsternal chest pain with palpation. No bony deformity or subcutaneous emphysema noted. No overlying soft tissue changes to suggest trauma or infection. Resp normal respiratory effort and clear to auscultation bilaterally Resp Narrative: Breath sounds are diminished throughout but overall clear to quotation without signs of respiratory distress Cardio regular rate and regular rhythm Rate: other Other Details: Heart is regular rate and rhythm without murmurs rubs or gallops Radial and carotid pulses are equal and symmetric GI normal to inspection, nondistended, normoactive bowel sounds, non-tender, non-distended and no masses GI Narrative: No voluntary guarding or rigidity or pulsatile mass Auscultation: normoactive bowel sounds Palpation: soft Extremity normal to inspection Extremity Narrative: No asymmetric edema no pitting edema negative Homans' sign bilaterally Neuro oriented x3 and CN's II-XII intact bilaterally Sensorium / Orientation: alert Psych mental status grossly normal Skin no rashes or lesions noted and no wounds MDM MDM MDM Narrative Medical decision making narrative: Patient initially arrived to the ER slightly hypertensive and tachycardic. She reported vague discomfort across the anterior chest without radiation diaphoresis or nausea/vomiting. She is a postmenopausal female with hypertension but otherwise does not have significant risk factors for CAD. Based on her vague midsternal chest, however there is concern for acute coronary syndrome versus cardiac dysrhythmia versus lung pathology such as pneumonia pneumothorax or PE/dissection. Secondary to this an EKG was obtained which showed sinus rhythm without ischemic changes. There is no dysrhythmia change either. The initial troponin was 15 the 2-hour delta was 15 and this rules her out of the cardiac algorithm going against acute coronary syndrome. I did perform a D-dimer as the patient does have higher risk for PE as she is not ambulatory from her MS. the D-dimer is normal going against PE or dissection. Patient's workup revealed no obvious cause for her chest discomfort. On reevaluation she did report resolution of it. Therefore at this time with improvement of vitals resolution of chest pain and negative workup I do not feel there is need for further inpatient testing and she is otherwise safe for discharge. History & Record Review Discussion w/independent historian: Patient and Family Lab Data Attestation: I reviewed the patient's lab results. Labs: Laboratory Results - last 24 hr 03/29/25 03/30/25 23:00 01:00 WBC 9.7 RBC 4.95 Hgb 15.2 H Hct 44.2 MCV 89.3 MCH 30.7 MCHC 34.4 RDW Std Deviation 42.6 RDW Coeff of Nola 13.1 Plt Count 269 MPV 9.4 Immature Gran % (Auto) 0.500 Neut % (Auto) 68.0 Lymph % (Auto) 22.4 Garza % (Auto) 5.9 Eos % (Auto) 2.5 Baso % (Auto) 0.7 Absolute Neuts (auto) 6.6 Absolute Lymphs (auto) 2.17 Nucleated RBC % 0 D-Dimer Quant (PE/DVT) < 0.27 L Sodium 139 Potassium 4.3 Chloride 105 Carbon Dioxide 22.0 Anion Gap 13 BUN 11 Creatinine 0.90 Estim Creat Clear Calc 70.04 Est GFR (MDRD) Non-Af 71 BUN/Creatinine Ratio 12.4 Glucose 125 H Calcium 8.9 Magnesium 2.2 Troponin T High Sens 15 H Troponin T Hi Sens 2 Hr 15 H Radiography Diagnostic Testing: Clinical Impression(s) from Imaging Studies Chest X-Ray 03/29/25 23:05 IMPRESSION: No Acute Findings. Reading Location: [place] [address] Chest x-ray as interpreted by the emergency medicine physician reveals no acute infiltrate pneumothorax or pleural effusion Discharge Plan Triage Chief Complaint: Chest Pain ED Provider: Nba Wallace Dx/Rx/DC Orders Clinical Impression: Nonspecific chest pain, Hypertension, Multiple sclerosis Instructions: ED Chest Pain, Uncertain Cause Prescriptions: No Action amlodipine 10 mg Tablet 10 mg PO DAILY Qty: 30 0RF ciprofloxacin HCl 500 mg Tablet 500 mg PO BID Qty: 6 0RF duloxetine 60 mg Capsule,Delayed Release(Dr/Ec) 60 mg PO DAILY Qty: 30 0RF carvedilol [Coreg] 6.25 mg tablet 6.25 mg PO BID Qty: 60 0RF Rx Instructions: must administer with a meal/food Primary Care Provider: Hector Johnson Referrals: Hector Johnson MD [Primary Care Provider] - Activity Restrictions/Additional Instructions: Your workup showed no signs of active heart damage or lung pathology as a cause of your symptoms. Follow-up with your family doctor to discuss potential cardiology referral and/or outpatient stress testing. Return to the ER should you have any further concerns Print Language: Lao Disposition Disposition: Home, Self Care Discharge Date/Time: 03/30/25 03:11
[2025-03-30 03:01] VITALS: BP 109/58; PULSE 64; RESP 18; TEMP 36.8; O2SAT 98
== END 2025-03-30 03:11 | disposition home or self-care (01) ==
PROVIDERS: Emergency Provider Emergency Medicine; PCP Family Medicine; Visit Provider Emergency Medicine
DX: R07.9 Chest pain, unspecified (principal); G35 Multiple sclerosis; I25.10 Atherosclerotic heart disease of native coronary artery without angina pectoris; I10 Essential (primary) hypertension
CPT/HCPCS: 71045; 80048; 83735; 84484; 85025; 85379; 93005; 96374; 99285; A4216; J2405